=== PATIENT | female | born 1980 | race Caucasian/White ===

== ENCOUNTER 2023-03-30 12:46 | Outpatient (OUT) | payer OTHER, SELFPAY ==
[2023-03-30 13:49] LABS: Free T3 2.42 pg/mL (2.18-3.98); Thyroid Stimulating Hormone 6.265 uIU/mL (0.358-3.740)
== END 2023-03-30 12:47 ==
PROVIDERS: Visit Provider Internal Medicine
DX: E06.3 Autoimmune thyroiditis (principal); E04.9 Nontoxic goiter, unspecified; E55.9 Vitamin D deficiency, unspecified
CPT/HCPCS: 36415; 82306; 84436; 84443; 84481

== ENCOUNTER 2023-09-25 15:15 | Outpatient (OUT) | payer OTHER, SELFPAY ==
[2023-09-25 16:38] LABS: Thyroid Stimulating Hormone 4.203 uIU/mL (0.358-3.740)
[2023-09-25 16:52] LABS: Free T4 0.78 ng/dL (0.76-1.46)
== END 2023-09-25 15:16 | disposition home or self-care (01) ==
LOC: LAB 15:17
PROVIDERS: Visit Provider Internal Medicine
DX: E06.3 Autoimmune thyroiditis (principal); E04.9 Nontoxic goiter, unspecified; E55.9 Vitamin D deficiency, unspecified
CPT/HCPCS: 36415; 82306; 84439; 84443; 84481

== ENCOUNTER 2024-05-20 10:43 | Outpatient (OUT) | payer OTHER, SELFPAY ==
--- NOTE | 2024-05-20 10:47 | MM_ITS ---
Patient Name: GIULIA ARRIOLA MR#: [id number] : 1980 Exam Date: 05/20/2024 Ordering Doctor: DR Trav Mccauley . RADIOLOGY REPORT PROCEDURE: MM TOMOSYNTHESIS SCREENING BI COMPARISON: MG MAMM SCREEN 3D LEIF CAD, 06/23/2022. MG MAMM SCREEN 3D LEIF CAD, 06/24/2021. INDICATIONS: Screening Calculator Name NCI Breast Cancer Risk Assessment Tool 5 Year Breast Cancer Risk 0.90% Lifetime Breast Cancer Risk 12.10% Personal Breast Cancer No Personal Ovarian Cancer No Treatments None Family Cancers None LOCATION: [facility] BREAST COMPOSITION: The breasts are extremely dense, which lowers the sensitivity of mammography. FINDINGS: DIAGNOSTIC CATEGORY 1--NEGATIVE. RIGHT BREAST: No significant suspicious finding. No significant change has occurred. LEFT BREAST: No significant suspicious finding. No significant change has occurred. RECOMMENDATIONS: ROUTINE MAMMOGRAM AND CLINICAL EVALUATION IN 12 MONTHS. PLEASE NOTE: A NORMAL MAMMOGRAM DOES NOT EXCLUDE THE POSSIBILITY OF BREAST CANCER. A CLINICALLY SUSPICIOUS PALPABLE LUMP SHOULD BE BIOPSIED. Dictated by: Elbert Yang M.D. on 05/20/2024 at 16:21 Approved by: Elbert Yang M.D. on 05/20/2024 at 16:23
--- OUTSIDE RECORDS SUMMARY | 2024-05-20 11:03 | XMS_ITS | CCD ---
Author Organization [facility] Care Team Providers Care Verification Specialist Name Role Phone Gase Yeison ESTRADA Primary Care Provider Yasmin Clark APRN, CNP Primary Care Provide r MINE, DR TEE Attending Unavailable KARASIK, DR TEE Consulting Unavailable MISC, DR FLANAGAN Primary Care Unavailable KARASIK, DR TEE Admitting Unavailable KARASIK, DR TEE Admitting Unavailable KARASIK, DR TEE Attending Unavailable KARASIK, DR TEE Consulting Unavailable MISC, DR FLANAGAN Primary Care Unavailable CHANTILLY, DR KANIKA Hodge Consulting Unavailable Yasmin Clark APRN, CNP Primary Care Provide r NISA Ventura Attending Provider Shanel Ventura Unavailable Shanel Ventura Attending Unavailable Shanel Ventura Admitting Unavailable Yasmin Clark APRN, CNP Primary Care Provide r YASMIN THOMPSON Referring Unavailable YASMIN THOMPSON Primary Care Unavailable JASWANT GILES Referring Unavailable YASMIN THOMPSON Primary Care Unavailable YASMIN THOMPSON Referring Unavailable YASMIN THOMPSON Primary Care Unavailable SHELBY VEGA Referring Unavailable YASMIN THOMPSON Primary Care Unavailable Medications Current Medications Medication Drug Class(es) Dates Sig (Normalized) Sig (Original) amitriptyline hydrochloride 25 mg oral tablet (8 sources) Tricyclic Antidepressant Start: 07-26-2023 take 1 tablet by mouth once daily amitriptyline (ELAVIL) 25 MG tablet Indications: Insomnia, unspecified type TAKE 1 TABLET BY MOUTH NIGHTLY 90 tablet 3 07/26/2023 Active Start: 12-22-2022 take 1 tablet by [facility] once daily amitriptyline (ELAVIL) 25 MG tablet Indications: Insomnia, unspecified type TAKE 1 TABLET BY MOUTH NIGHTLY 90 tablet 3 10/13/2022 Active Start: 04-20-2022 take 1 tablet by [facility] once daily amitriptyline (ELAVIL) 25 MG tablet Indications: Insomnia, unspecified type TAKE 1 TABLET BY MOUTH NIGHTLY 90 tablet 1 04/20/2022 Active Amitriptyline HC l Active Ascorbic Acid (1 source) Vitamin C Ascorbic Acid (MARGOT-C PO) Take by mouth 0 Active cholecalciferol 0.025 mg oral tablet (1 source) Vitamin D take 1 tablet by mouth once daily vitamin D (CHOLECALCIFEROL) 25 MCG (1000 UT) TABS tablet Take 1 tablet by mouth daily 0 Active Elastic Bandages & Supports (WRIST SPLINT/COCK-UP/RIGHT M) MISC (2 sources) Start: 10-26-19 Elastic Bandages & Supports (WRIST SPLINT/COCK-UP/RIGH T M) MISC 1 each by Does not apply route nightly 1 each 0 10/26/2021 Active escitalopram 20 mg oral tablet (2 sources) Serotonin Reuptake Inhibitor Start: 05-04-20 take 1 tablet by mouth once daily escitalopram (LEXAPRO) 20 MG tablet Take 1 tablet by mouth daily 90 tablet 3 05/04/2022 Active fluticasone propionate 0.05 mg/actuat metered dose nasal spray (8 sources) Corticosteroid Start: 12-22-19 fluticasone (FLONASE) 50 MCG/ACT nasal spray USE 2 SPRAYS BY NASAL ROUTE DAILY. 1 each 1 12/22/2023 Active Start: 01-30-2023 fluticasone (F LONASE) 50 MCG/ACT nasal spray SPRAY 2 SPRAYS BY NASAL ROUTE DAILY 1 each 1 01/30/2023 Active Start: 01-06-2023 fluticasone (F LONASE) 50 MCG/ACT nasal spray 2 sprays by Nasal route daily 1 each 1 01/06/2023 Active Start: 10-18-2022 take 2 spray(s) nasa l route once daily fluticasone (FLONASE) 50 MCG/ACT nasal spray SPRAY 2 SPRAYS INTO EACH NOSTRIL EVERY DAY 2 each 1 10/18/2022 Active Start: 04-21-2022 take 2 spray(s) nasa l route once daily fluticasone (FLONASE) 50 MCG/ACT nasal spray SPRAY 2 SPRAYS INTO EACH NOSTRIL EVERY DAY 1 each 3 04/21/2022 Active Start: 03-31-2021 take 2 spray(s) nasa l route once daily fluticasone (FLONASE) 50 MCG/ACT nasal spray 2 sprays by Each Nostril route daily 1 Bottle 2 03/31/2021 Active ibuprofen 600 mg oral tablet (1 source) Nonsteroidal Anti-inflammatory Drug Start: 03-31-2021 take 1 tablet by mouth three times daily as needed for pain ibuprofen (ADVIL;MOTRIN) 600 MG tablet Take 1 tablet by mouth 3 times daily as needed for Pain 60 tablet 1 03/31/2021 Active levothyroxine sodium 0.075 mg oral tablet (4 sources) l-Thyroxine Start: 10-03-2023 take 1 tablet by mouth once daily levothyroxine (SYNTHROID) 75 MCG tablet Take 1 tablet by mouth Daily 0 10/03/2023 Active Start: 01-03-2023 [facility] daily levothyroxine (SYNTHROID) 50 MCG tablet TAKE 1 TABLET BY MOUTH EVERY DAY 30 tablet 5 01/03/2023 Active Levothyroxine So dium Active Multiple Vitamin (MV-ONE PO) (7 sources) Multiple Vitamin (MV-ONE PO) Take by mouth 0 Active Vit-Fe Fumarate-FA ( FORMULA PO) (2 sources) Vit-Fe Fumarate-FA ( FORMULA PO) Take by mouth 0 Active Probiotic (1 source) Probiotic Active Probiotic Product (PROBIOTIC PO) (1 source) Probiotic Produc t (PROBIOTIC PO) Take by mouth 0 Active 24 hr venlafaxine 75 mg extended release oral capsule (6 sources) Serotonin and Norepinephrine Reuptake Inhibitor Start: 12-27-19 take 1 capsule by mouth once daily venlafaxine (EFFEXOR XR) 75 MG extended release capsule TAKE 1 CAPSULE BY MOUTH EVERY DAY 90 capsule 3 12/27/2023 Active Start: 01-20-2023 take 1 capsule by mo [facility] once daily venlafaxine (EFFEXOR XR) 75 MG extended release capsule Take 1 capsule by mouth daily 30 capsule 5 01/20/2023 Active Start: 12-09-2022 take 1 capsule by mo [facility] once daily venlafaxine (EFFEXOR XR) 75 MG extended release capsule Take 1 capsule by mouth daily 30 capsule 5 12/09/2022 Active Venlafaxine HCl Active Problems Active Problems Problem Classification Problem Date Documented Da te Episodic/Chronic Anxiety disorders (7 sources) Anxiety; Translations: [Anxiety disorder, unspecified] Onset: 06-01-2021 06-01-2021 Chronic Diabetes mellitus without complication (1 source) Increased glucose level; Translations: [Other abnormal glucose] Episodic Headache; including migraine (2 sources) Refractory migraine; Translations: [Migraine, unspecified, intractable, without status migrainosus] Onset: 01-24-2023 01-24-2023 Chronic Headache; including migraine (9 sources) Generalized headache; Translations: [Generalized headaches] 03-27-2017 Episodic Immunizations and screening for infectious disease (1 source) Encounter for screening for human papillomavirus (HPV); Translations: [ENC SCREENING HUMAN PAPILLOMAVIRUS] Onset: 06-01-2022 Episodic Miscellaneous mental health disorders (9 sources) Bruxism (teeth grinding); Translations: [Other somatoform disorders] Onset: 03-19-2019 03-19-2019 Chronic Mood disorders (7 sources) Recurrent major depressive episodes, moderate ; Translations: [Major depressive disorder, recurrent, moderate] Onset: 06-01-2021 06-01-2021 Chronic Nonspecific chest pain (1 source) Chest pain; Translations: [Chest pain, unspecified] Episodic Other acquired deformities (1 source) Mallet finger of left finger(s) Episodic Other connective tissue disease (1 source) Pain in left finger(s) Episodic Other gastrointestinal disorders (2 sources) Abdominal bloating; Translations: [Abdominal distension (gaseous)] Episodic Other gastrointestinal disorders (2 sources) Loose stool; Translations: [Other fecal abnormalities] Episodic Other gastrointestinal disorders (1 source) Altered bowel function; Translations: [Change in bowel habit] 02-10-2024 Episodic Other gastrointestinal disorders (1 source) Flatulence, eructation and gas pain; Translations: [Flatulence] 02-10-2024 Episodic Other gastrointestinal disorders (1 source) Change in bowel habit; Translations: [Change in bowel habit] Onset: 02-10-2024 Episodic Other gastrointestinal disorders (1 source) Flatulence; Translations: [Flatulence] Onset: 02-10-2024 Episodic Other gastrointestinal disorders (1 source) Gas pain; Translations: [Gas pain] Onset: 02-10-2024 Episodic Other gastrointestinal disorders (1 source) Eructation; Translations: [Eructation] Onset: 02-10-2024 Episodic Other nervous system disorders (1 source) Paresthesia of hand ; Translations: [Anesthesia of skin] Episodic Other screening for suspected conditions (not mental disorders or infectious disease) (10 sources) Patient encounter status; Translations: [Encounter for screening for lipoid disorders] Onset: 05-31-2022 Episodic Other upper respiratory infections (9 sources) Chronic sinusitis; Translations: [Chronic sinusitis, unspecified] Onset: 03-27-2017 03-27-2017 Chronic Thyroid disorders (10 sources) Hypothyroidism; Translations: [Hypothyroidism, unspecified] Onset: 01-24-2023 Chronic Unclassified (1 source) Pain in left finger(s); Translations: [Pain in left finger(s)] Onset: 01-04-2023 Past or Other Problems Problem Classification Problem Date Documented Da te Episodic/Chronic Lymphadenitis (9 sources) Cervical lymphadenopathy; Translations: [Localized enlarged lymph nodes] Onset: 03-27-2017 03-27-2017 Episodic Results Test Name Value Interpretation Reference Range Facility T3, [facility] 03-29-2024 Free T3 [Mass/Vol] 2.50 pg/mL Normal 2.00-4.40 [facility] Comment on above: Performed By: #### Wong CAG, STLPCR #### [facility] [employer] [address] [place] [address] [id number] Project Account Manager: Amador Awan MD [facility] [address] [place] [address] [place] [address] Project Account Manager: Kanika Lozada MD Thyroxine, [facility] 03-29-2024 Thyroxine, Free 1.1 ng/dL Normal 0.92-1.68 [facility] Comment on above: Performed By: #### Wong CAG, STLPCR #### [address] [id number] Project Account Manager: Amador Awan MD [facility] [address] [place] [address] [place] [address] Project Account Manager: Kanika Lozada MD CBCon 03-25-2024 Erythrocyte distribution width (RBC) [Ratio] 11.9 % Normal 11.8-14.4 [facility] Comment on above: Performed By: #### C P, CBC #### [facility] [address] [place] [address] [place] [address] Project Account Manager: Kanika Lozada MD #### GLYHGB #### [address] [place], [place] [phone] Project Account Manager: Amador Awan MD Hematocrit (Bld) [Volume fraction] 37.5 % Normal 36.3-47.1 [facility] Comment on above: Performed By: #### C P, CBC #### [address] [place] [phone] Project Account Manager: Kanika Lozada MD #### GLYHGB #### [address] [phone] Project Account Manager: Amador Awan MD Hemoglobin (Bld) [Mass/Vol] 12.6 g/dL Normal 11.9-15.1 [facility] Comment on above: Performed By: #### C P, CBC #### [facility] [address] [place] [address] [place] [phone] Project Account Manager: Kanika Lozada MD #### GLYHGB #### [address] [place], [place] [phone] Project Account Manager: Amador Awan MD MCH (RBC) [Entitic mass] 30.6 pg Normal 25.2-33.5 [facility] Comment on above: Performed By: #### C P, CBC #### [facility] [address] [place] [address] [place] [address] Project Account Manager: Kanika Lozada MD #### GLYHGB #### [address] [phone] Project Account Manager: Amador Awan MD MCHC (RBC) [Mass/Vol] 33.6 g/dL Normal 28.4-34.8 [facility] Comment on above: Performed By: #### C P, CBC #### [facility] [address] [place] [address] [place] [phone] Project Account Manager: Kanika Lozada MD #### GLYHGB #### [address] [id number] Project Account Manager: Amador Awan MD MCV (RBC) [Entitic vol] 91.0 fL Normal 82.6-102.9 [facility] Comment on above: Performed By: #### C P, CBC #### [address] [place] [phone] Project Account Manager: Kanika Lozada MD #### GLYHGB #### [place] [address] Project Account Manager: Amador Awan MD NRBC Automated 0.0 per 100 WBC Normal 0.0 [facility] Comment on above: Performed By: #### C P, CBC #### [address] [place] [phone] Project Account Manager: Kanika Lozada MD #### GLYHGB #### [place] [address] Project Account Manager: Amador Awan MD Platelet mean volume (Bld) [Entitic vol] 8.9 fL Normal 8.1-13.5 [facility] Comment on above: Performed By: #### C P, CBC #### [address] [place] [phone] Project Account Manager: Kanika Lozada MD #### GLYHGB #### [address] [place] [address] Project Account Manager: Amador Awan MD Platelets (Bld) [#/Vol] 291 10*3/uL Normal 138-453 [facility] Comment on above: Performed By: #### C P, CBC #### [facility] [address] [place], [place] [phone] Project Account Manager: Kanika Lozada MD #### GLYHGB #### [address] [place] [address] Project Account Manager: Amador Awan MD RBC (Bld) [#/Vol] 4.12 10*6/uL Normal 3.95-5.11 [facility] Comment on above: Performed By: #### C P, CBC #### [facility] [address] [place] [address] [place], [place] [phone] Project Account Manager: Kanika Lozada MD #### GLYHGB #### [address] [address] Project Account Manager: Amador Awan MD WBC (Bld) [#/Vol] 5.3 10*3/uL Normal 3.5-11.3 [facility] Comment on above: Performed By: #### C P, CBC #### [facility] [address] [place] [address] [place]. [place], [place] [phone] Project Account Manager: Kanika Lozada MD #### GLYHGB #### [address] [place] [address] Project Account Manager: Amador Awan MD Comp Metabolic Profon 2023 Albumin [Mass/Vol] 4.4 g/dL Normal 3.5-5.2 [facility] Comment on above: Performed By: #### C P, CBC #### [facility] [address] [place], [place] [phone] Project Account Manager: Kanika Lozada MD #### GLYHGB #### [address] [place] [address] Project Account Manager: Amador Awan MD Albumin/Glob Ratio 1.6 Normal 1.0-2.5 [facility] Comment on above: Performed By: #### C P, CBC #### [facility] [address] [place] [address] [address]. [place], [place] [phone] Project Account Manager: Kanika Lozada MD #### GLYHGB #### [address] [address] Project Account Manager: Amador Awan MD Alkaline Phos 91 U/L Normal 35-104 [facility] Comment on above: Performed By: #### C P, CBC #### [address] [place], [place] [phone] Project Account Manager: Kanika Lozada MD #### GLYHGB #### [address] [address] Project Account Manager: Amador Awan MD ALT [Catalytic activity/Vol] 13 U/L Normal 5-33 [facility] Comment on above: Performed By: #### C P, CBC #### [address] [place], [place] [phone] Project Account Manager: Kanika Lozada MD #### GLYHGB #### [address] [address] Project Account Manager: Amador Awan MD Anion gap [Moles/Vol] 8 mmol/L Low 9-17 [facility] Comment on above: Performed By: #### C P, CBC #### [address] [place], [place] [phone] Project Account Manager: Kanika Lozada MD #### GLYHGB #### [address] [address] Project Account Manager: Amador Awan MD AST [Catalytic activity/Vol] 18 U/L Normal <32 [facility] Comment on above: Performed By: #### C P, CBC #### [facility] [address] [place], [place] [phone] Project Account Manager: Kanika Lozada MD #### GLYHGB #### [address] [address] Project Account Manager: Amador Awan MD Bilirubin [Mass/Vol] 0.2 mg/dL Low 0.3-1.2 [facility] Comment on above: Performed By: #### C P, CBC #### [facility] [address] [place], [place] [phone] Project Account Manager: Kanika oLzada MD #### GLYHGB #### [address] [address] Project Account Manager: Amador Awan MD BUN/CRE Ratio 21 High 9-20 [facility] Comment on above: Performed By: #### C P, CBC #### [facility] [address] [place], [place] [phone] Project Account Manager: Kanika Lozada MD #### GLYHGB #### [address] [address] Project Account Manager: Amador Awan MD Calcium [Mass/Vol] 9.1 mg/dL Normal 8.6-10.4 [facility] Comment on above: Performed By: #### C P, CBC #### [facility] [address] [place], [place] [phone] Project Account Manager: Kanika Lozada MD #### GLYHGB #### [address] [address] Project Account Manager: Amador Awan MD Chloride [Moles/Vol] 104 mmol/L Normal 98-107 [facility] Comment on above: Performed By: #### C P, CBC #### [facility] [address] [place] [address] Project Account Manager: Kanika Lozada MD #### GLYHGB #### [facility] [address] [place], [place] [phone] Project Account Manager: Amador Awan MD CO2 [Moles/Vol] 26 mmol/L Normal 20-31 [facility] Comment on above: Performed By: #### C P, CBC #### [facility] [address] [place] [address] Project Account Manager: Kanika Lozada MD #### GLYHGB #### [address] [place], [place] [phone] Project Account Manager: Amador Awan MD Creatinine [Mass/Vol] 0.8 mg/dL Normal 0.5-0.9 [facility] Comment on above: Performed By: #### C P, CBC #### [address] [place] [address] Project Account Manager: Kanika Lozdaa MD #### GLYHGB #### [address] [place], [place] [phone] Project Account Manager: Amador Awan MD GFR/1.73 sq M.predicted among non-blacks MDRD (S/P/Bld) [Vol rate/Area] mL/min/{1.73_m2} Normal >60 [facility] Comment on above: Result Comment: These results are not intended for use in patients <18 years of age. eGFR results are calculated without a race factor using the 2020 CKD-EPI equation. Careful clinical correlation is recommended, particularly when comparing to results calculated using previous equations. The CKD-EPI equation is less accurate in patients with extremes of muscle mass, extra-renal metabolism of creatine, excessive creatine ingestion, or following therapy that affects renal tubular secretion. Performed By: #### C P, CBC #### [facility] [address] [place], [place] [phone] Project Account Manager: Kanika Lozada MD #### GLYHGB #### [address] [place], [place] [phone] Project Account Manager: Amador Awan MD Glucose [Mass/Vol] 84 mg/dL Normal 70-99 [facility] Comment on above: Performed By: #### C P, CBC #### [address] [place], [place] [phone] Project Account Manager: Kanika Lozada MD #### GLYHGB #### [address] [phone] Project Account Manager: Amador Awan MD Potassium [Moles/Vol] 4.5 mmol/L Normal 3.7-5.3 [facility] Comment on above: Performed By: #### C P, CBC #### [address] [place] [phone] Project Account Manager: Kanika Lozada MD #### GLYHGB #### [address] [address] Project Account Manager: Amador Awan MD Protein [Mass/Vol] 7.1 g/dL Normal 6.4-8.3 [facility] Comment on above: Performed By: #### C P, CBC #### [address] [place], [place] [phone] Project Account Manager: Kanika Lozada MD #### GLYHGB #### [address] [address] Project Account Manager: Amador Awan MD Sodium [Moles/Vol] 138 mmol/L Normal 135-144 [facility] Comment on above: Performed By: #### C P, CBC #### [address] [place], [place] [phone] Project Account Manager: Kanika Lozada MD #### GLYHGB #### [address] [place] [address] Project Account Manager: Amador Awan MD Urea nitrogen [Mass/Vol] 17 mg/dL Normal 6-20 [facility] Comment on above: Performed By: #### C P, CBC #### [facility] [address] [place] [address] [address]. [place], [place] [phone] Project Account Manager: Kanika Lozada MD #### GLYHGB #### [address] [address] Project Account Manager: Amador Awan MD Hemoglobin A1Con 03-25-2024 Glucose [Mass/Vol] 103 mg/dL Normal [facility] Comment on above: Result Comment: The ADA and AACC recommend providing the estimated average glucose result to permit better patient understanding of their HBA1c result. Performed By: #### C P, CBC #### [facility] [address] [place] [address] [address]. [place], [place] [phone] Project Account Manager: Kanika Lozada MD #### GLYHGB #### [address] [address] Project Account Manager: Amador Awan MD HbA1c (Bld) [Mass fraction] 5.2 % Normal 4.0-6.0 [facility] Comment on above: Performed By: #### C P, CBC #### [facility] [address] [place] [address] [address]. [place], [place] [phone] Project Account Manager: Kanika Lozada MD #### GLYHGB #### [address] [address] Project Account Manager: Amador Awan MD Lipid Profileon 03-25-2024 Cholesterol [Mass/Vol] 205 mg/dL High 0-199 [facility] Comment on above: Result Comment: Cholesterol Guidelines: <200 Desirable 200-240 Borderline >240 Undesirable Performed By: #### L IPR #### [address] [address] Project Account Manager: Amdaor Awan MD Cholesterol in HDL [Mass/Vol] 51 mg/dL Normal >40 [facility] Comment on above: Result Comment: HDL Guidelines: <40 Undesirable 40-59 Borderline >59 Desirable Performed By: #### L IPR #### [address] [address] Project Account Manager: Amador Awan MD Cholesterol in LDL [Mass/Vol] 138 mg/dL High 0-100 [facility] Comment on above: Result Comment: LDL Guidelines: <100 Desirable 100-129 Near to/above Desirable 130-159 Borderline >159 Undesirable Direct (measured) LDL and calculated LDL are not interchangeable tests. Performed By: #### L IPR #### [address] [address] Project Account Manager: Amador Awan MD Cholesterol in VLDL [Mass/Vol] 16 mg/dL Normal [facility] Comment on above: Performed By: #### L IPR #### [address] [address] Project Account Manager: Amador Awan MD Cholesterol.total/Chol esterol in HDL [Mass ratio] 4.0 {ratio} Normal [facility] Comment on above: Performed By: #### L IPR #### [address] [address] Project Account Manager: Amador Awan MD Triglyceride [Mass/Vol] 80 mg/dL Normal <150 [facility] Comment on above: Result Comment: Triglyceride Guidelines: <150 Desirable 150-199 Borderline 200-499 High >499 Very high Based on AHA Guidelines for fasting triglyceride, July 2012. Performed By: #### L IPR #### [address] [address] Project Account Manager: Amador Awan MD TSH w/reflex to FT4on 2023 Thyroid Stim. Horm. 3.95 uIU/mL Normal 0.30-5.00 [facility] Comment on above: Performed By: #### G ELIZABETH STLPCR #### [address] [place] [address] Project Account Manager: Amador Awan MD [facility] [address] [place] [address] [place] [address] Project Account Manager: Kanika Lozada MD Fecal Panc Elastaseon 2023 Pancreatic Elastase >800 Normal >=100 [facility] Comment on above: Result Comment: (NOT E) REFERENCE INTERVAL: Pancreatic Elastase Fecal by Immunoassay Less than 100 ug/g............Severe insufficiency 100 - 199 ug/g................Moderate insufficiency 200 ug/g or greater...........Normal INTERPRETIVE INFORMATION: Pancreatic Elastase Fecal by Immunoassay Reference intervals do not apply for infants less than one month old. Performed By: [employer] [address] [place] [address] Worship Pastor: Hieu Hurley MD, PhD CLIA Number: [id number] Performed By: #### G CAG, STLPCR #### [address] [address] Project Account Manager: Amador Awan MD [facility] [address] [place] [address] [place] [address] Project Account Manager: Kanika Lozada MD Giardia/Cryptosp Agon 2023 Cryptosporidium Ag Negative Normal NEG [facility] Comment on above: Result Comment: Cryp tosporidium Antigen Assay Performed By: #### G CAG, STLPCR #### [address] [address] Project Account Manager: Amador Awan MD [facility] [address] [place] [address] [place] [address] Project Account Manager: Kanika Lozada MD O+P,Giardia Ag Negative Normal NEG [facility] Comment on above: Result Comment: Giar taylor Antigen Assay Performed By: #### G ELIZABETH, STLPCR #### [address] [address] Project Account Manager: Amador Awan MD [facility] [address] [place] [address] Project Account Manager: Kanika Lozada MD H. pylori Antigenon 02-11-20 24 H. pylori Antigen Specimen Description .FECES Direct Exam NEGATIVE Report Status FINAL 02/11/2024 Normal [facility] Comment on above: Performed By: #### F HPY #### [address] [address] Project Account Manager: Amador Awan MD [facility] [address] [place] [address] Project Account Manager: Kanika Lozada MD Stool PCR [place] 02-11-20 24 Campylobacter sp PCR NEGATIVE: No Campylobacter spp. (jejuni or coli) DNA Detected Normal [facility] Comment on above: Performed By: #### G CAG, STLPCR #### [address] [address] Project Account Manager: Amador Awan MD [facility] [address] [place] [address] Project Account Manager: Kanika Lozada MD E coli enterotox PCR NEGATIVE: No Enterotoxigenic E. coli (ETEC) Heat-labile and heat-stable (LT/ST) Normal [facility] Comment on above: Result Comment: DNA Detected Performed By: #### G CAG, STLPCR #### [address] [address] Project Account Manager: Amador Awan MD [facility] [address] [place] [address] Project Account Manager: Kanika Lozada MD Plesiomonas sp PCR Negative [facility] Comment on above: Performed By: #### G CAG, STLPCR #### [address] [address] Project Account Manager: mAador Awan MD [facility] [address] [place] [address] Project Account Manager: Kanika Lozada MD Salmonella sp PCR [facility] Comment on above: Performed By: #### G CAG, STLPCR #### [facility] [address] [place] [address] Project Account Manager: Amador Awan MD [facility] [address] [place] [address] Project Account Manager: Kanika Lozada MD Shigatoxin gene PCR Negative Normal [facility] Comment on above: Performed By: #### G CAG, STLPCR #### [facility] [address] [place] [address] Project Account Manager: Amador Awan MD [facility] [address] [place] [address] [place] [address] Project Account Manager: Kanika Lozada MD Shigella sp PCR Negative Normal [facility] Comment on above: Performed By: #### G CAG, STLPCR #### [facility] [address] [place] [address] Project Account Manager: Amador Awan MD [facility] [address] [place] [address] [place] [address] Project Account Manager: Kanika Lozada MD Vibrio sp PCR NEGATIVE: No Vibrio (V. vulnificus, V, parahaemolyticus and V. cholerae) DNA [facility] Comment on above: Result Comment: Dete cted Performed By: #### G CAG, STLPCR #### [facility] [address] [place] [address] Project Account Manager: Amador Awan MD [facility] [address] [place] [address] [place] [address] Project Account Manager: Kanika Lozada MD Yersinia gene PCR Negative [place] [facility] Comment on above: Performed By: #### G CAG, STLPCR #### [facility] [address] [place] [address] Project Account Manager: Amador Awan MD [facility] [address] [place], [place] [phone] Project Account Manager: Kanika Lozada MD Giardia/Cryptosp Agon 2023 Source .FECES Normal [facility] Comment on above: Performed By: #### G CAG, STLPCR #### [facility] [address] [place] [address] Project Account Manager: Amador Awan MD [facility] [address] [place] [phone] Project Account Manager: Kanika Lozada MD Specimen Rejectionon 024 Reason for rejection Unable to perform testing: Formed stool is not consistent with suspected Normal [facility] Comment on above: Result Comment: diag nosis. Performed By: #### R EJEC #### [facility] [address] [place] [address] [address] [place], [place] [phone] Project Account Manager: Kanika Lozada MD Source of sample STOOL Normal [facility] Comment on above: Performed By: #### R EJEC #### [facility] [address] [place] [address] [address] [place], [place] [phone] Project Account Manager: Kanika Lozada MD Test ordered CDIFQ Normal [facility] Comment on above: Performed By: #### R EJEC #### [facility] [address] [place] [address] [address] [place], [place] [phone] Project Account Manager: Kanika Lozada MD Stool PCR [place] 02-10-20 24 Specimen Description .FECES Normal [facility] Comment on above: Performed By: #### G CAG, STLPCR #### [facility] [address] [place] [address] Project Account Manager: Amador Awan MD [facility] [address] [place] [phone] Project Account Manager: Kanika Lozada MD TSH w/reflex to FT4on 2022 Thyroid Stim. Horm. 6.56 uIU/mL High 0.30-5.00 [facility] Comment on above: Performed By: #### F T4 #### [facility] [address] [place], [place] [phone] Project Account Manager: Amador Awan MD #### TSHX #### [facility] [address] [place] [address] Project Account Manager: Kanika Lozada MD Thyroxine, Freeon 05-24-2023 Thyroxine, Free 1.0 ng/dL Normal 0.9-1.7 [facility] Comment on above: Performed By: #### F T4 #### [address] [place], [place] [id number] Project Account Manager: Amador Awan MD #### TSHX #### [facility] [address] [place] [address] Project Account Manager: Kanika Lozada MD THYROIDon 02-09-2023 Heterogeneous, hypervascular thyroid parenchyma with mild enlargement of the right thyroid lobe, findings that could be seen with thyroiditis or Graves disease. [facility] EXAMINATION: THYROID ULTRASOUND 02/08/2023 4:58 pm COMPARISON: None HISTORY: ORDERING SYSTEM PROVIDED HISTORY: Arcelia's disease TECHNOLOGIST PROVIDED HISTORY: This procedure can be scheduled via [employer]. Access your Floob[employer] account by visiting [employer]altap. FINDINGS: Right thyroid lobe: 6.0 cm x 3.0 cm x 2.0 cm Left thyroid lobe: 4.4 cm x 1.5 cm x 1.8 cm Isthmus: 0.2 cm THYROID GLAND: Mild enlargement of the right lobe with otherwise normal size. Moderately heterogeneous echogenicity and echotexture. Markedly increased vascularity. NODULES: None visualized. CERVICAL LYMPHADENOPATHY: None visualized. [facility] Saran Baez MD - 02/09/2023 EXAMINATION: THYROID ULTRASOUND 02/08/2023 4:58 pm COMPARISON: None HISTORY: ORDERING SYSTEM PROVIDED HISTORY: Arcelia's disease TECHNOLOGIST PROVIDED HISTORY: This procedure can be scheduled via Floob[employer]. Access your [employer] account by visiting vocaltap. FINDINGS: Right thyroid lobe: 6.0 cm x 3.0 cm x 2.0 cm Left thyroid lobe: 4.4 cm x 1.5 cm x 1.8 cm Isthmus: 0.2 cm THYROID GLAND: Mild enlargement of the right lobe with otherwise normal size. Moderately heterogeneous echogenicity and echotexture. Markedly increased vascularity. NODULES: None visualized. CERVICAL LYMPHADENOPATHY: None visualized. IMPRESSION: Heterogeneous, hypervascular thyroid parenchyma with mild enlargement of the right thyroid lobe, findings that could be seen with thyroiditis or Graves disease. [employer] Phone: US THYROIDOrdered By: Samra Baez on 02-09-2023 [employer] Phone: US THYROIDon 02-08-2023 Radiology Study observation (narrative) [employer] Phone: T4, Freeon 01-18-2023 Free T4 [Mass/Vol] 0.98 ng/dL 0.93 - 1. 70 ng/dL [employer] TSHon 01-17-2023 TSH Qn 4.70 m[IU]/L [employer] XR finger LT 3rd digiton XR finger LT 3rd digit [facility] [place] [address] XRay Report Signed Patient: Giulia Blackwell MR#: [id number] : 1980 Acct:[id number] Age/Sex: 42 / F ADM Date: 01/04/23 Loc: XDUCLY Room: Type: [facility] Attending Dr: Shanel PAULA Copies to: NISA Callahan Ordering Provider: NISA Callahan Date of Service: 01/04/23 XR/XR finger LT 3rd digit: M79.645 XR finger LT 3rd digit 01/04/2023 5:35 PM SIGNS AND SYMPTOMS: Injury to left third digit with flexion deformity PROTOCOL: Frontal, lateral, and oblique radiographs of the left third digit COMPARISON: None FINDINGS: There is no evidence of fracture. No dislocation or subluxation. There is a focus flexion deformity suspicious for tendon injury at the distal interphalangeal joint of the third digit. No accompanying soft tissue swelling. XR/XR finger LT 3rd digit IMPRESSION: There is no evidence of fracture. There is a focus flexion deformity suspicious for tendon injury at the distal interphalangeal joint of the third digit. Impression dictated by: Primo Gregory M.D.01/04/2023 5:51 PM Dictation Location: [facility]- Transcribed By: [facility] 01/04/231750 Dictated By: Primo Gregory II, MD 01/04/231749 Signed By: 01/04/231750 [facility] XR finger LT 3rd digit [facility] [employer] Other XR finger LT 3rd digit [facility] [employer] Other XR finger LT 3rd digit [address] [facility] [employer] Other XR finger LT 3rd digit [place] [id number] [employer] Other XR finger LT 3rd digit XRay Report N [facility] [employer] Other XR finger LT 3rd digit Signed No rt [employer] Other XR finger LT 3rd digit Patient: Giulia Blackwell MR#: [id number] [place] [employer] Other XR finger LT 3rd digit : 1980 Acct:[id number] [employer] Other XR finger LT 3rd digit Age/Sex: 42 / F A DM Date: 01/04/23 [employer] Other XR finger LT 3rd digit Loc: XDUCLY Room: Type: [facility] [employer] Other XR finger LT 3rd digit Attending Dr: Ana María PAULA [employer] Other XR finger LT 3rd digit Copies to: NISA Callahan [employer] Other XR finger LT 3rd digit Ordering Provider : NISA Callahan [employer] Other XR finger LT 3rd digit Date of Service: 01/04/23 [employer] Other XR finger LT 3rd digit XR/XR finger LT 3rd digit: M79.645 [employer] Other XR finger LT 3rd digit XR finger LT 3rd digit 01/04/2023 5:35 PM [employer] Other XR finger LT 3rd digit SIGNS AND SYMPTOM S: Injury to left third digit with flexion deformity [employer] Other XR finger LT 3rd digit PROTOCOL: Frontal , lateral, and oblique radiographs of the left third digit [employer] Other XR finger LT 3rd digit COMPARISON: None [employer] Other XR finger LT 3rd digit FINDINGS: No rt [employer] Other XR finger LT 3rd digit There is no evide nce of fracture. No dislocation or subluxation. There is a focus flexion deformity [employer] Other XR finger LT 3rd digit suspicious for tendon injury at the distal interphalangeal joint of the third digit. No accompanying [employer] Other XR finger LT 3rd digit soft tissue swelling. [employer] Other XR finger LT 3rd digit 8 XR/XR finger LT 3rd digit [employer] Other XR finger LT 3rd digit IMPRESSION: [employer] Other XR finger LT 3rd digit There is no evide nce of fracture. [employer] Other XR finger LT 3rd digit There is a focus flexion deformity suspicious for tendon injury at the distal interphalangeal joint [employer] Other XR finger LT 3rd digit of the third digit. [employer] Other XR finger LT 3rd digit Impression dictat ed by: Primo Gregory M.D.01/04/2023 5:51 PM [employer] Other XR finger LT 3rd digit Dictation Locatio n: RADIO-PC-13 [employer] Other XR finger LT 3rd digit Transcribed By: Mervin KHAN 01/04/23 [facility] [employer] Other XR finger LT 3rd digit Dictated By: Primo Gregory II, MD 01/04/23 [facility] [employer] Other XR finger LT 3rd digit Signed By: No rt [employer] Other XR finger LT 3rd digit 01/04/23 [facility] [employer] Other Blood Occult Stool #1on 11-23 Date, Stool #1 [id number] [facility] Hemoglobin.gastrointes tinal spec 1 Ql (Stl) Negative NEGATIVE [facility] Time, Stool #1 [facility] C-Reactive Proteinon 023 CRP High sensitivity method [Mass/Vol] 3.6 mg/L 0.0 - 5.0 mg/L [facility] CBC with Auto Differentialon 12-09-2022 Absolute Eos # 0.11 [facility] Absolute Immature Granulocyte [facility] Absolute Lymph # 2.15 [facility] Absolute Rice # 0.47 [facility] Basophils (Bld) [#/Vol] 0.05 10*3/uL [facility] Basophils/100 WBC (Bld) 1 % 0 - 2 % [facility] Eosinophils/100 WBC (Bld) 2 % 1 - 4 % [facility] Hematocrit (Bld) [Volume fraction] 35.4 % Low 36.3 - 47.1 % [facility] Hemoglobin (Bld) [Mass/Vol] 12.0 g/dL 11.9 - 15.1 g/dL [facility] Immature granulocytes/100 WBC (Bld) 0 % 0 [facility] Interpretation and review of laboratory results Abnormal [facility] Lymphocytes/100 WBC (Bld) 33 % 24 - 43 % [facility] MCH (RBC) [Entitic mass] 31.7 pg 25.2 - 33.5 pg [facility] MCHC (RBC) [Mass/Vol] 33.9 g/dL 28.4 - 34.8 g/dL [facility] MCV (RBC) [Entitic vol] 93.7 fL 82.6 - 102.9 fL [facility] Monocytes/100 WBC (Bld) 7 % 3 - 12 % [facility] NRBC Automated 0.0 0.0 per 100 WBC [facility] Platelet distribution width (Bld) [Ratio] 12.0 % 11.8 - 14.4 % [facility] Platelet mean volume (Bld) [Entitic vol] 8.6 fL 8.1 - 13.5 fL [facility] Platelets (Bld) [#/Vol] 321 10*3/uL [facility] RBC (Bld) [#/Vol] 3.78 10*6/uL Low 3.95 - 5.1 1 m/uL [facility] Segmented neutrophils/100 WBC (Bld) 57 % 36 - 65 % [facility] Segs Absolute 3.68 [facility] WBC (Bld) [#/Vol] 6.5 10*3/uL [facility] Comprehensive Metabolic Pane cesar 12-09-2022 Albumin [Mass/Vol] 4.5 g/dL 3.5 - 5.2 g/dL [facility] Albumin/Globulin [Mass ratio] 1.7 {ratio} 1.0 - 2.5 [facility] ALP [Catalytic activity/Vol] 72 U/L 35 - 104 U/L [facility] ALT [Catalytic activity/Vol] 16 U/L 5 - 33 U/L [facility] Anion gap [Moles/Vol] 8 mmol/L Low 9 - 17 mmol/L [facility] AST [Catalytic activity/Vol] 19 U/L NINF - 32 U/L [facility] Bilirubin [Mass/Vol] mg/dL Low 0.3 - 1 .2 mg/dL [facility] Calcium [Mass/Vol] 9.3 mg/dL 8.6 - 10. 4 mg/dL [facility] Chloride [Moles/Vol] 99 mmol/L 98 - 10 7 mmol/L [facility] CO2 [Moles/Vol] 28 mmol/L 20 - 31 mmol/L [facility] Creatinine [Mass/Vol] 0.76 mg/dL 0.50 - 0.90 mg/dL [facility] GFR/1.73 sq M.predicted MDRD (S/P/Bld) [Vol rate/Area] - PINF [facility] Comment on above: These results are not intended for use in patients <18 years of age. eGFR results are calculated without a race factor using the 2020 CKD-EPI equation. Careful clinical correlation is recommended, particularly when comparing to results calculated using previous equations. The CKD-EPI equation is less accurate in patients with extremes of muscle mass, extra-renal metabolism of creatine, excessive creatine ingestion, or following therapy that affects renal tubular secretion. Glucose [Mass/Vol] 84 mg/dL 70 - 99 mg/dL [facility] Interpretation and review of laboratory results Abnormal [facility] Potassium [Moles/Vol] 4.0 mmol/L 3.7 - 5.3 mmol/L [facility] Protein [Mass/Vol] 7.2 g/dL 6.4 - 8.3 g/dL [facility] Sodium [Moles/Vol] 135 mmol/L 135 - 144 mmol/L [facility] Urea nitrogen [Mass/Vol] 15 mg/dL 6 - 20 mg/dL [facility] Urea nitrogen/Creatinine (Bld) [Mass ratio] 20 9 - 20 [facility] Sedimentation Rateon 02-17-2 023 ESR (Bld) [Velocity] 6 mm/h [facility] T3, Freeon 12-09-2022 Free T3 [Mass/Vol] 2.36 pg/mL 2.02 - 4. 43 pg/mL [facility] T4, Freeon 12-09-2022 Free T4 [Mass/Vol] 0.70 ng/dL Low 0.93 - 1. 70 ng/dL [facility] Interpretation and review of laboratory results Abnormal [facility] TSHon 12-09-2022 Interpretation and review of laboratory results Abnormal [facility] TSH Qn 21.12 m[IU]/L High [facility] MG MAMM SCREEN 3D LEIF CADon 06-23-2022 MG MAMM SCREEN 3D LEIF CAD Patient: GIULIA BLACKWELL Exam Date: 06/23/2022 : 1980 Gender:F Ordering : DR RANDAL BLOUNT . Admission #: [id number] Family : Order #: [id number] CLICK HERE TO VIEW EXAM RADIOLOGY REPORT PROCEDURE: MAMMOGRAM SCREENING 3D BILATERAL CAD COMPARISON: MG MAMM SCREEN 3D LEIF CAD, 06/24/2021. INDICATIONS: Screening mammography Calculator Name NCI Breast Cancer Risk Assessment Tool 5 Year Breast Cancer Risk 0.80% Lifetime Breast Cancer Risk 12.40% Personal Breast Cancer No Personal Ovarian Cancer No Treatments None Family Cancers None LOCATION: [facility] BREAST COMPOSITION: Extremely dense, which lowers the sensitivity of mammography. FINDINGS: DIAGNOSTIC CATEGORY 1--NEGATIVE. NO CHANGE FROM COMPARISON ASSESSMENT. Scattered benign-appearing calcifications are present. Scattered benign-appearing lymph nodes are present. RIGHT BREAST: No significant suspicious finding. LEFT BREAST: No significant suspicious finding. RECOMMENDATIONS: ROUTINE MAMMOGRAM AND CLINICAL EVALUATION IN 12 MONTHS. PLEASE NOTE: A NORMAL MAMMOGRAM DOES NOT EXCLUDE THE POSSIBILITY OF BREAST CANCER. A CLINICALLY SUSPICIOUS PALPABLE LUMP SHOULD BE BIOPSIED. Dictated by: Kanika Cochran MD on 06/24/2022 at 08:01 Approved by: Kanika Cochran MD on 06/24/2022 at 08:03 Normal [facility] PAP ACOG PANEL 2: 30 to 65on 06-06-2022 . . Normal [facility] Comment on above: Result Comment: Perf ormed at: WB Performed By: #### [id number] #### [facility] [address] [place] [address] Dr. Pk Cat Age Gdln ACOG Testing 30-65 [facility] Comment on above: Performed By: #### [id number] #### [facility] [address] [place] [address] Dr. Pk Cat DIAGNOSIS: Comment Normal [facility] Comment on above: Result Comment: NEGA TIVE FOR INTRAEPITHELIAL LESION OR MALIGNANCY. Performed at: WB Performed By: #### [id number] #### [facility] [address] [place] [address] Dr. Pk Cat HPV Aptima Negative Normal [facility] Comment on above: Result Comment: This nucleic acid amplification test detects fourteen high-risk HPV types (16,18,31,33,35,39,45,51,52,56,58,59,66,68) without differentiation. Performed at: =G Performed By: #### [id number] #### [facility] [address] [place] [address] Dr. Pk Cat Methodology: Comment [facility] Comment on above: Result Comment: This liquid based ThinPrep(R) pap test was screened with the use of an image guided system. Performed at: WB Performed By: #### [id number] #### [facility] [address] [place] [address] Dr. Pk Cat Note: Comment Normal [facility] Comment on above: Result Comment: The Pap smear is a screening test designed to aid in the detection of premalignant and malignant conditions of the uterine cervix. It is not a diagnostic procedure and should not be used as the sole means of detecting cervical cancer. Both false-positive and false-negative reports do occur. . Performed at: WB Performed By: #### [id number] #### [facility] [address] [place] [address] Dr. Pk Cat Performed by: Comment Normal [facility] Comment on above: Result Comment: Kailey Conde [employer] Operator (ASCP) Performed at: WB Performed By: #### [id number] #### [facility] [address] [address] [address] Pk Cat Specimen adequacy: Comment Normal [facility] Comment on above: Result Comment: Sati sfactory for evaluation. Endocervical and/or squamous metaplastic cells (endocervical component) are present. Performed at: WB Performed By: #### [id number] #### [facility] [address] [address] [address] Pk Cat XR CERVICAL SPINE (2-3 VIEWS )on 05-05-2022 Normal exam [facility] EXAMINATION: XRAY VIEWS OF THE CERVICAL SPINE 05/05/2022 10:04 am COMPARISON: None. HISTORY: ORDERING SYSTEM PROVIDED HISTORY: Numbness and tingling in right hand FINDINGS: Cervical spine alignment is anatomic. No acute osseous abnormality. No significant degenerative change. Prevertebral soft tissues unremarkable. [facility] Gilmer Menendez DO - 05/05/2022 EXAMINATION: XRAY VIEWS OF THE CERVICAL SPINE 05/05/2022 10:04 am COMPARISON: None. HISTORY: ORDERING SYSTEM PROVIDED HISTORY: Numbness and tingling in right hand FINDINGS: Cervical spine alignment is anatomic. No acute osseous abnormality. No significant degenerative change. Prevertebral soft tissues unremarkable. IMPRESSION: Normal exam [facility] Phone: Radiology Study observation (narrative) [employer] Phone: XR CERVICAL SPINE (2-3 VIEWS )Ordered By: Gilmer Menendez on 05-05-2022 [employer] Phone: ALTOrdered By: Yasmin Thompson on 03-31-2021 ALT [Catalytic activity/Vol] 13 U/L 5 - 33 U/L [employer] Phone: ASTOrdered By: Yasmin Thompson on 03-31-2021 AST [Catalytic activity/Vol] 17 U/L <32 [employer] Phone: Basic Metabolic PanelOrdered By: Yasmin Thompson on 03-31-2021 Anion gap [Moles/Vol] 6 mmol/L Low 9 - 17 mmol/L [employer] Phone: Calcium [Mass/Vol] 9.5 mg/dL 8.6 - 10. 4 mg/dL [employer] Phone: Chloride [Moles/Vol] 105 mmol/L 98 - 10 7 mmol/L [employer] Phone: CO2 [Moles/Vol] 27 mmol/L 20 - 31 mmol/L [employer] Phone: Creatinine [Mass/Vol] 0.76 mg/dL 0.50 - 0.90 mg/dL [employer] Phone: GFR >60 >60 mL/min [employer] Phone: GFR Non- >60 >60 mL/min [employer] Phone: Glucose [Mass/Vol] 89 mg/dL 70 - 99 mg/dL [facility] [employer] Phone: Interpretation and review of laboratory results Abnormal [employer] Phone: Potassium [Moles/Vol] 4.4 mmol/L 3.7 - 5.3 mmol/L [employer] Phone: Sodium [Moles/Vol] 138 mmol/L 135 - 144 mmol/L [employer] Phone: Urea nitrogen (BldV) [Mass/Vol] 20 mg/dL 6 - 20 mg/dL [employer] Phone: Urea nitrogen/Creatinine (Bld) [Mass ratio] 26 High [employer] Phone: CBCOrdered By: Yasmin Thompson on 03-31-2021 Hematocrit (Bld) [Volume fraction] 38.8 % 36.3 - 47.1 % [employer] Phone: Hemoglobin.gastrointes tinal spec 1 Ql (Stl) 12.8 g/dL 11.9 - 15.1 g/dL [employer] Phone: Interpretation and review of laboratory results Abnormal [employer] Phone: MCH (RBC) [Entitic mass] 30.8 pg 25.2 - 33.5 pg [employer] Phone: MCHC (RBC) [Mass/Vol] 33.0 g/dL 28.4 - 34.8 g/dL [employer] Phone: MCV (RBC) [Entitic vol] 93.3 fL 82.6 - 102.9 fL [employer] Phone: NRBC Automated 0.0 0.0 per 100 WBC [employer] Phone: Platelet distribution width (Bld) [Ratio] 11.7 % Low 11.8 - 14.4 % [employer] Phone: Platelet mean volume (Bld) [Entitic vol] 8.9 fL 8.1 - 13.5 fL [employer] Phone: Platelets (Bld) [#/Vol] 299 10*3/uL [employer] Phone: RBC (Bld) [#/Vol] 4.16 10*6/uL 3.95 - 5.1 1 m/uL [employer] Phone: WBC (Bld) [#/Vol] 6.0 10*3/uL [employer] Phone: [employer] Phone: Laboratory - Chemistry and C hemistry - challengeOrdered By: Yasmin Thompson on 03-31-2021 GFR/1.73 sq M.predicted MDRD (S/P/Bld) [Vol rate/Area] [employer] Phone: Comment on above: Average GFR for 40-4 9 years old: 99 mL/min/1.73sq m Chronic Kidney Disease: <60 mL/min/1.73sq m Kidney failure: <15 mL/min/1.73sq m eGFR calculated using average adult body mass. Additional eGFR calculator available at: http://www.[employer]/multiple_crcl_2012.htm Stage 1: Some kidney damage normal GFR Stage 2: Mild kidney damage GFR 60-89 Stage 3: Moderate kidney damage GFR 30-59 Stage 4: Severe kidney damage GFR 15-29 Stage 5: Severe kidney damage GFR <15 ESRD - chronic treatment by dialysis or transplant Lipid PanelOrdered By: Ivelisse Thompson on 03-31-2021 Cholesterol [Mass/Vol] 168 mg/dL <200 [employer] Phone: Comment on above: Cholesterol Guidelines: <200 Desirable 200-240 Borderline >240 Undesirable Cholesterol in HDL [Mass/Vol] 52 mg/dL >40 [employer] Phone: Comment on above: HDL Guidelines: <40 Undesirable 40-59 Borderline >59 Desirable Cholesterol in LDL [Mass/Vol] 80 mg/dL 0 - 130 mg/dL [employer] Phone: Comment on above: LDL Guidelines: <100 Desirable 100-129 Near to/above Desirable 130-159 Borderline >159 Undesirable Direct (measured) LDL and calculated LDL are not interchangeable tests. Cholesterol in VLDL [Mass/Vol] NOT REPORTED High 1 - 30 mg/dL [employer] Phone: Cholesterol.total/Chol esterol in HDL [Mass ratio] 3.2 {ratio} <5 [employer] Phone: Interpretation and review of laboratory results Abnormal [employer] Phone: Triglyceride [Mass/Vol] 179 mg/dL High <150 [employer] Phone: Comment on above: Triglyceride Guidelines: <150 Desirable 150-199 Borderline 200-499 High >499 Very high Based on AHA Guidelines for fasting triglyceride, July 2012. [employer] Phone: No Panel InformationOrdered By: Yasmin Thompson on 03-31-2021 [employer] Work Phone: TSH without ReflexOrdered By : Yasmin Thompson on 03-31-2021 TSH Qn 4.48 m[IU]/L [employer] Work Phone: [employer] Work Phone: PROGRESSon 12-14-2019 PROGRESS HNO ID: [id number] Author: Kailey Daniel Service: ? Author Type: Nurse Practitioner Type: Progress Notes Filed: 12/14/2019 9:58 AM Note Text: Telemedicine Visit - Distance Health Virtual Visit Note Patient seen on WebNotes Online platform. Location of patient: [place] History of Present Illness Giulia Blackwell is a 39 year old year old female who presents for the past 9 days with symptoms that are:Sinusitis Care Path Symptoms Worsening after 3-4 days and lasting 5-6 days; worsening or new onset fever, daytime cough, or nasal discharge after initial improvement of a viral upper respiratory infection (URI). +purulent drainage , denies fever Symptoms include: Positive for Nasal congestion, Rhinorrhea and Face pain/pressure Oral intake: good Tobacco use: No Second hand smoke exposure: No Recent exposure to strep:No Sick contacts: no Recent travel: no OTC meds/remedies that patient has tried: sudafed.laura pot saline spray PAST MEDICAL HISTORY Diagnosis Date - Known health problems: none PAST SURGICAL HISTORY Procedure Laterality Date - SNGL No family history on file. Social History Tobacco Use - Smoking status: Not on file Substance Use Topics - Alcohol use: Not on file - Drug use: Not on file No current outpatient medications on file. No current facility-administere d medications for this visit. ALLERGIES No Known Allergies Video Exam (Examination performed via Video enabled technology) General appearance: Alert, oriented, pleasant, in NAD :Yes Ill appearing :No Lethargic appearing :Yes Eyes: Sclera clear :Yes Conjunctiva without erythema :Yes Ears: Tragus / outer ear tenderness by self palpation :No Oropharynx: normal, no erythema Frontal sinus tenderness by self palpation;Yes Maxillary sinus tenderness by self palpation :No Tender cervical adenopathy by self palpation :Yes Respiratory distress :No Coughing noted :No Audible wheezing noted :No Centor Criteria - Age (2-14=+1, 15-44=0, >=45 -1): 0 - Tonsillar exudates: 0 - Tender anterior cervical adenopathy: +1 - Fever by history (>38 or 100.4): 0 - Absence of cough: 0 0 points- probability of strep is 1-2.5% 1 point- probability of strep is 5-10% 2 points- probability of strep is 11-17% 3 points- probability of strep is 28-35% 4 points- probability of strep is 51-53% ASSESSMENT/PLAN: 1. Sinus problem - ICD9: 473.9, ICD10: J34.9 - Will begin treatment with as per antibiotic as written, see orders - The patient should also be given OTC cough and cold meds as needed and nasal saline gtts and suction prn for the first 5-7 days of treatment. - Supportive care with plenty of fluids, rest, and analgesia prn. - Follow up in 3-5 days if symptoms persist or worsen. - AMOXICILLIN 875 MG-POTASSIUM CLAVULANATE 125 MG TABLET - FLONASE SENSIMIST 27.5 MCG/ACTUATION NASAL SPRAY,SUSPENSION - SALINE MIST 0.65 % NASAL SPRAY AEROSOL -Tylenol (generic acetaminophen) 500 mg-2 tabs every 8 hrs. as needed for fever and aches -Sudafed (generic is fine), behind the counter, 2x30 mg tabs twice daily as needed for congestion -Mucinex (generic is fine) 1200 mg twice daily to help with cough and to thin out mucus -http://www.choosing wisely.org/patient-r esources/antibiotics /. This link shares information about when antibiotics may help and when they may not. - Red flags discussed for need for in person care - All questions answered Kailey Daniel CNP If you let us know who your primary care provider is, we will send them a notification of today?s visit through our electronic medical records system. Since not all providers have access to our notifications, we strongly encourage you to share the following record of today?s visit with your primary care provider at your next visit. This will help in providing you the best care. Normal [facility] PROGRESSon 10-24-2019 PROGRESS HNO ID: [id number] Author: Kailey Daniel Service: ? Author Type: Nurse Practitioner Type: Progress Notes Filed: 10/24/2019 10:08 AM Note Text: Telemedicine Visit - Distance Health Virtual Visit Note Patient seen on [facility] Online platform. Location of patient: [place] History of Present Illness: Giulia Blackwell is a 39 year old year old female with a history of onset 1 days ago. Positive for Redness, Itching, Discharge and Crusting in AM PAST MEDICAL HISTORY Diagnosis Date - Known health problems: none PAST SURGICAL HISTORY Procedure Laterality Date - SNGL No family history on file. Social History Tobacco Use - Smoking status: Not on file Substance Use Topics - Alcohol use: Not on file - Drug use: Not on file Current Outpatient Medications Medication Sig - erythromycin ophthalmic ointment Use 1 application in the left eye twice daily for 7 days. Gently pull down lower lid, apply thin ribbon of ointment to affected eye(s) No current facility-administere d medications for this visit. ALLERGIES No Known Allergies VIDEO EXAMINATION (Examination performed via Video enabled technology) General Appearance: 39 year old year old female in NAD Eyes: Normal Pupil Size EOMI Right: normal sclera Left: Conjunctival injection ASSESSMENT/PLAN: 1. [place] eye disease of left eye - ICD9: 372.03, ICD10: H10.022 - erythromycin ointment (pt is , polytrim ?? W/ ) PLAN: Warm compresses Hand washing OTC Artificial tears as directed May return to work or return to school after 24 hours of topical eye therapy. Kailey Daniel CNP If you let us know who your primary care provider is, we will send them a notification of today?s visit through our electronic medical records system. Since not all providers have access to our notifications, we strongly encourage you to share the following record of today?s visit with your primary care provider at your next visit. This will help in providing you the best care. Normal [facility] PROGRESSon 01-09-2019 PROGRESS HNO ID: [id number] Author: Phill Sommers Service: ? Author Type: Nurse Practitioner Type: Progress Notes Filed: 01/09/2019 4:50 PM Note Text: Telemedicine Visit - Distance Health Virtual Visit Note Patient seen on Express Care Online platform. Location of patient: [place] History of Present Illness Giulia Blackwell is a 38 year old year old female who presents for the past 1.5 weeks with symptoms that are:rapidly worsening and Sinusitis Care Path Symptoms persistent and not improving (greater-than or equal to 10 days), severe (greater-than or equal to 3-4 days), worsening or double-sickening (greater-than or equal to 3-4 days) and facial pain for 3-4 consecutive days Symptoms include: Positive for Cough, Face pain/pressure, Headache, Sore throat and Fatigue Initial onset began with nasal congestion and secretions with bloody streaks, and New onset of frontal headache and bilateral ear pressure Oral intake: hydration good Appetite good Tobacco use: No Second hand smoke exposure: No Recent exposure to strep:No Sick contacts: no Recent travel: Yes [place] (12/28-01/02) symptoms began on vacation OTC meds/remedies that patient has tried: ocean nasal spray and neti pot, sudafed multi-symptom no PAST MEDICAL HISTORY Diagnosis Date - Known health problems: none PAST SURGICAL HISTORY Procedure Laterality Date - SNGL No family history on file. Medications include ALLERGIES No Known Allergies Video Exam (Examination performed via Video enabled technology) General appearance: Alert, oriented, pleasant, in NAD :Yes Ill appearing :No Lethargic appearing :No Eyes: Sclera clear :Yes Conjunctiva without erythema :Yes Ears: Tragus / outer ear tenderness by self palpation :No Frontal sinus tenderness by self palpation;Yes Maxillary sinus tenderness by self palpation :Yes Tender cervical adenopathy by self palpation :Yes Respiratory distress :No Coughing noted :Yes Audible wheezing noted :No ASSESSMENT/PLAN: 1. Acute non-recurrent pansinusitis - ICD9: 461.8, ICD10: J01.40 - Will begin treatment with as per antibiotic as written, see orders - The patient should also be given warm salt water gargles, throat lozenges and/or OTC throat spray as needed and nasal saline gtts and suction prn for the first 5-7 days of treatment. - Supportive care with plenty of fluids, rest, and analgesia prn. - Follow up in 3-5 days if symptoms persist or worsen. - AMOXICILLIN 875 MG-POTASSIUM CLAVULANATE 125 MG TABLET - [place] nasal spray as directed - Add Flonase as directed -Tylenol (generic acetaminophen) 500 mg-2 tabs every 8 hrs. as needed for fever and aches -Mucinex (generic is fine) 1200 mg twice daily to help with cough and to thin out mucus -http://www.choosing wisely.org/patient-r esources/antibiotics /. This link shares information about when antibiotics may help and when they may not. - Red flags discussed for need for in person care - All questions answered Phill Sommers APRN.CNP If you let us know who your primary care provider is, we will send them a notification of today?s visit through our electronic medical records system. Since not all providers have access to our notifications, we strongly encourage you to share the following record of today?s visit with your primary care provider at your next visit. This will help in providing you the best care. [facility] PATIENT INFO ACUTE SINUSITIS OVERVIEW Rhinosinusitis, or more commonly sinusitis, is the medical term for inflammation (swelling) of the lining of the sinuses and nose. The sinuses are the hollow areas within the facial bones that are connected to the nasal openings. The sinuses are lined with mucous membranes, similar to the inside of the nose. There are two main types of sinusitis: acute and chronic. Acute sinusitis is inflammation that lasts for less than four weeks while chronic sinusitis lasts for more than 12 weeks. Acute sinusitis is common, affecting approximately one million people per year in the [place]. ACUTE SINUSITIS CAUSES The most common cause of acute sinusitis is a viral infection associated with the common cold. Bacterial sinusitis occurs much less commonly, in only 0.5 to 2 percent of cases, usually as a complication of viral sinusitis. Because antibiotics are effective only against bacterial, and not viral, infections, most people do not need antibiotics for acute sinusitis. ACUTE SINUSITIS SYMPTOMS Symptoms of acute sinusitis include: ? Nasal congestion or blockage ? Thick, yellow to green discharge from the nose ? Pain in the teeth ? Pain or pressure in the face that is worse when bending forwards Other acute sinusitis symptoms can include fever (temperature greater than 100.4?F or 38?C), fatigue, cough, difficulty or inability to smell, ear pressure or fullness, headache, and bad breath. In most cases, these symptoms develop over the course of one day and begin to improve within seven to 10 days. DO I NEED TO BE EXAMINED? It is difficult to know if you have a viral or bacterial sinus infection initially. However, most people with a viral infection improve without treatment within seven to 10 days after symptoms begin. Bacterial sinusitis also sometimes improves without treatment, although it can also worsen and require treatment. If one or more of the following bothersome symptoms last more than seven days, an examination by a healthcare provider is recommended: ? Thick, yellow to green discharge from the nose ? Face or tooth pain, especially if it is only on one side ? Tenderness over the maxillary sinuses (located on the left and right side of the nose, inside the cheekbones) ? Symptoms that initially improve and then worsen When to seek immediate help ? If you have one or more of the following symptoms, you should seek medical attention immediately (even if symptoms have been present for less than seven days): ? High fever (>102.5? F or 39.2? C) ? Sudden, severe pain in the face or head ? Double vision or difficulty seeing ? Confusion or difficulty thinking clearly ? Swelling or redness around one or both eyes ? Stiff neck, shortness of breath ACUTE SINUSITIS TREATMENT Initial treatment of a sinus infection aims to relieve symptoms since almost everyone will improve within the first seven to 10 days. Experts recommend avoiding antibiotics during this time unless there is clear evidence of a severe bacterial infection. Initial treatment Pain relief ? Non-prescription pain medications, such as acetaminophen (eg, Tylenol?) or ibuprofen (eg, Motrin?, Advil?) are recommended for pain. Nasal irrigation and saline sprays ? Rinsing the nose with a salt-water (saline) solution is called nasal irrigation or nasal lavage. Saline is also available in a standard nasal spray, although this is not as effective as using larger amounts of water in an irrigation. Nasal irrigation is particularly useful for treating drainage down the back of the throat, sneezing, nasal dryness, and congestion. The treatment helps by rinsing out allergens and irritants from the nose. Saline rinses also clean the nasal lining and can be used before applying sprays containing medications, to get a better effect from the medication. Nasal lavage with warmed saline can be performed as needed, once per day, or twice daily for increased symptoms. Nasal lavage carries few risks when performed correctly. Saline nasal sprays and irrigation kits can be purchased [id number]. Saline mixes can also be purchased or patients can make their own solution. A variety of devices, including bulb syringes, Neti pots, and bottle sprayers, may be used to perform nasal lavage; instructions for nasal lavage are provided in the table. At least 200 mL (about 3/4 cup) of fluid is recommended for each nostril. Nasal decongestants ? Nasal decongestant sprays, including oxymetazoline (Afrin?) and phenylephrine (Donny-synephrine?) can be used to temporarily treat congestion. However, these sprays should not be used for more than two to three days due to the risk of rebound congestion (when the nose is congested constantly unless the medication is used repeatedly). Other treatments ? Other treatments for congestion, such as oral antihistamines (such as diphenhydramine/Roselia dryl?) or zinc supplements are not proven to improve symptoms of sinusitis and can have unwanted side effects. Medications to thin secretions (such as guaifenesin) may help to clear mucus. Secondline treatment ? If symptoms have not improved in seven to ten days, you should arrange for medical evaluation. You may need further treatment. Nasal glucocorticoids ? Nasal glucocorticoids (steroids delivered by a nasal spray) can help to reduce swelling inside the nose, usually within two to three days. These drugs have few side effects and dramatically relieve symptoms in most people. There are a number of nasal glucocorticoids available by prescription. These drugs are all effective, but differ in how frequently they must be used and how much they cost. You may need to use a nasal decongestant for a few days before starting a nasal glucocorticoid to reduce nasal swelling; this will allow the nasal glucocorticoid to reach more areas of the nasal passages Do I need an antibiotic? ? If bothersome symptoms of sinusitis persist for 10 or more days, it is possible that you have bacterial sinusitis. The need for antibiotics depends upon the severity of your symptoms. Mild symptoms ? There are two possible treatment options if you have mild sinusitis symptoms: treat with antibiotics or continue to watch and wait for one week. Watching and waiting is a reasonable option because up to 75 percent of people with bacterial sinusitis improve within one month without antibiotics. During the watch and wait period, treatments to improve symptoms are recommended. If symptoms worsen or do not improve after watching and waiting, treatment with an antibiotic is usually recommended. Treatments to relieve symptoms are recommended while using antibiotics. Moderate or severe symptoms ? Most healthcare providers will prescribe an antibiotic for moderate to severe symptoms (temperature >38.3? C or 101? F and/or severe pain that interferes with usual activities). Treatments to relieve symptoms are also recommended during antibiotic treatment. One of the least expensive and most effective antibiotics for sinusitis is amoxicillin. An alternate antibiotic will be prescribed if you are allergic to penicillin. Regardless of which antibiotic is prescribed, it is important to follow the dosing instructions carefully and to finish the entire course of treatment. Taking the medication less often than prescribed or stopping the medication early can lead to complications, such as a recurrent infection. What if I do not improve with treatment? ? If you do not improve or worsen after a course of antibiotics, you should be re-examined. In some cases, symptoms of sinusitis improve but then recur. This is usually because the infection was not completely eliminated by the antibiotic. An alternate antibiotic, extended antibiotic treatment, and/or further testing may be recommended, depending upon your individual situation. Normal [facility] Vital Signs Date Time Vital Sign Value Performing Clinician Facility 01-04-2023 18:15-0400 Body height 162.56 cm Shanel Ventura Other [employer] Other 01-04-2023 18:15-0400 Body mass index (BMI) [Ratio] 29.18 kg/m2 Shanel Audrey Other [employer] Other 01-04-2023 18:15-0400 Body weight 77.11 kg Shanel Ventura Other [employer] Other 01-04-2023 18:15-0400 Diastolic blood pressure 64 mm[Hg] Shanel Ventura Other [employer] Other 01-04-2023 18:15-0400 Respiratory rate 18 /min Shanelkassy Ventura Other [employer] Other 01-04-2023 18:15-0400 SaO2% (BldA) [Mass fraction] 97 % Shanel Ventura Other [employer] Other 01-04-2023 18:15-0400 Systolic blood pressure 130 mm[Hg] Shanel Ventura Other [employer] Other Encounters Encounter Date Encounter Type Care Provider Facility Start: 03-28-2024 End: 03-28-2024 ambulatory SHELBY VEGA [facility] Start: 03-25-2024 End: 03-25-2024 ambulatory YASMIN THOMPSON [facility] Start: 03-25-2024 Encounter for nona l adult medical examination without abnormal findings ATWOOD THOMPSON [facility] Start: 02-10-2024 End: 02-10-2024 ambulatory JASWANT GILES [facility] Start: 02-10-2024 End: 02-10-2024 Subsequent hospital visit by physician Yasmin Sun CNP Work Phone: [facility] Comment on above: Change in bowel habi ts; Flatulence, eructation and gas pain Start: 05-24-2023 End: 05-24-2023 ambulatory YASMIN Myers THOMPSON [facility] Start: 02-08-2023 End: 02-10-2023 Subsequent hospital visit by physician [facility] Ultrasound Room [facility] Ultrasound 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 Start: 01-17-2023 End: 01-17-2023 Subsequent hospital visit by physician Yasmin Sun CNP Work Phone: [facility] Comment on above: Hypothyroidism, unsp ecified type Start: 01-04-2023 End: 01-04-2023 ambulatory Shanel Ventura Facility:[facility] Start: 01-04-2023 End: 01-04-2023 Patient encounter procedure WINDOW [facility]ER-C Shanel Ventura Work Phone: [facility] Work Phone: Start: 01-04-2023 End: 01-04-2023 ambulatory [facility] [facility]C Shanel Ventura Work Phone: [facility] Work Phone: Start: 01-04-2023 Office outpatient vi sit 15 minutes Shanel Ventura [facility] Start: 12-11-2022 End: 12-11-2022 Subsequent hospital visit by physician Yasmin Thompson APRN - [employer] Work Phone: [facility] Comment on above: Abdominal bloating; Loose stools Start: 12-09-2022 End: 12-09-2022 Subsequent hospital visit by physician Yasmin Thompson APRN - [employer] Work Phone: [facility] Comment on above: Elevated glucose; Abdominal bloating; Loose stools Start: 06-23-2022 End: 06-24-[address] RANDAL BLOUNT Facility:[facility] Start: 05-31-2022 End: 05-31-[address] RANDAL BLOUNT Facility:[facility] Start: 05-05-2022 End: 05-07-2022 Patient encounter status [address] Rad[facility] Start: 05-05-2022 End: 05-07-2022 Subsequent hospital visit by physician [address] Rad[facility] Comment on above: Numbness and tinglin g in right hand; Wellness examination Start: 03-31-2021 End: 03-31-2021 Patient encounter status Yeison Spencer MD Work Phone: [facility] Start: 03-31-2021 End: 03-31-2021 Subsequent hospital visit by physician Yeison Spencer MD Work Phone: [facility] EKG Comment on above: Chest pain, unspecif ied type Wellness examination ; Lipid screening; Diabetes mellitus screening Start: 03-27-2017 End: 04-18-2019 Patient encounter status Yeison Spencer MD Work Phone: [facility] Procedures Date Procedure Procedure Detail Performing Clinician Start: 02-08-2023 Us soft tissue head & neck real time imge docm Yasmin Thompson APRN - [employer] Work Phone: Start: 01-17-2023 Assay of free thyroxine Yasmin Thompson APRN - [employer] M[employer] Work Phone: Start: 01-04-2023 X-ray of middle finger [employer]OW [employer]ER[employer]C Shanel Audrey Work Phone: Start: 12-11-2022 Blood occult peroxid ase actv qual feces 1 deter Yasmin Myers Jay [employer] DIRECT[employer] Work Phone: Start: 12-09-2022 C-reactive protein Keri Myers Jay [employer] Work Phone: Start: 12-09-2022 Comprehensive metabo lic panel Yasminarlen Thompson DI[employer]ET[employer] DIRECT[employer] Work Phone: Start: 05-05-2022 Radex spine cervical 2 or 3 views Yasminarlen Thompson DIETET[employer] DIRECT[employer] Work Phone: Start: 06-14-2021 Microscopic observat ion [Identifier] in Cervix by Cyto stain Yasminderrick Thompson DIETETICS DIRECT[employer] Work Phone: Start: 03-31-2021 Ecg routine ecg w/le ast 12 lds w/i&r Yasmin Thompson DIETETICS DIRECTOR [employer] Work Phone: Start: 03-31-2021 Basic metabolic pane l calcium total Yasminarlen Thompson DIETETICS DIRECTOR [employer] Work Phone: Start: 03-31-2021 Lipid panel Yasminderrick ramírez [employer] Work Phone: Plan of Treatment Date Care Activity Detail Author Start: 05-04-2032 DTaP/Tdap/Td vaccine (2 - Td or Tdap) DTaP/Tdap/Td vaccine (2 - Td or Tdap) [facility] Start: 05-05-2027 Lipid panel Lipids [facility] Start: 12-01-2024 Depression [facility] Start: 07-18-2024 End: 07-18-2024 Admission to same day surgery center 07/18/2024 12:05 PM EDT - 07/18/2024 12:50 PM EDT Surgery [facility] OR [address] [place] [id number] Evelyn Gonzalez MD [address] [place] [id number] COLORECTAL CANCER SCREENING, NOT HIGH RISK [facility] OR Comment on above: COLORECTAL CANCER SC REENING, NOT HIGH RISK Start: 07-18-2024 End: 07-18-2024 Colon ca scrn not hi rsk ind COLORECTAL CANCER SCREENING, NOT HIGH RISK Screening for colon cancer 07/18/2024 12:05 PM EDT [facility] Start: 07-18-2024 Subsequent hospital visit by physician 07/18/2024 12:05 PM EDT Hospital Encounter [facility] OR [address] [id number] Evelyn Gonzalez MD [address] [place] [id number] [facility] Start: 06-14-2024 Screening for malign ant neoplasm of cervix [facility] Start: 05-29-2024 End: 05-29-2024 Patient encounter procedure 05/29/2024 3:20 PM EDT Office Visit [facility] Primary Care [address] [place] [address] [address] [place] [address] Yasmin Thompson, DIETETICS DIRECTOR - RADIO MESSAGE ROUTER [address] [facility] [address] [place] [address] Wellness [facility] Primary [facility] Comment on above: Wellness Start: 05-23-2024 Influenza vaccination Flu vacc ine (Season Ended) [facility] Start: 11-04-2023 Depression [facility] Start: 07-07-2023 Lipid panel [facility] Phone: Start: 06-23-2023 COVID-19 Vaccine ( season) COVID-19 Vaccine ( season) [facility] Start: 05-31-2023 End: 05-31-2023 Patient encounter procedure 05/31/2023 Office Visit Primary Care Yasmin Thompson, DIETETICS DIRECTOR - RADIO MESSAGE ROUTER [address] [facility] [address] [place] [address] [facility] Start: 05-04-2023 Depression Monitoring Depression Mon [facility] Start: 01-23-2023 End: 01-23-2023 Patient encounter procedure 01/23/2023 Office Visit Primary Care Yasmin Thompson, DIETETICS DIRECTOR - RADIO MESSAGE ROUTER [address] [facility] [address] [place], [place] [id number] [facility] Start: 11-04-2022 End: 11-04-2022 Patient encounter procedure 11/04/2022 Office Visit Primary Care Yasmin Thompson, DIETETICS DIRECTOR - RADIO MESSAGE ROUTER [address] [place] [address] [facility] Start: 10-26-2022 Screening for malign ant neoplasm of cervix Cervical cancer screen [facility] Comment on above: Postponed from 08/04 (Not Indicated) Start: 06-23-2022 Influenza vaccination Flu vaccine (# 1) [facility] Start: 03-27-2022 HIV screening HIV screen [facility] Work Phone: Comment on above: Postponed from 08/04 (Patient Refused) Start: 11-01-2021 COVID-19 Vaccine (4 - Booster for Moderna series) COVID-19 Vaccine (4 - Booster for Moderna series) [facility] Start: 07-26-2021 End: 07-26-2021 Patient encounter procedure 07/26/2021 Office Visit Family Medicine Gase, Yeison Rowe MD [address] [facility] [address] [place] [id number] [facility] Start: 2010 Screening for malign ant neoplasm of cervix HPV (without or with Pap) [facility] Start: 2001 Screening for malign ant neoplasm of cervix [facility] Start: 1999 DTaP/Tdap/Td vaccine (1 - Tdap) DTaP/Tdap/Td vaccine (1 - Tdap) [employer] Phone: Start: 1995 HIV screening HIV screen [employer] [facility] Start: 1980 Hepatitis B vaccine (1 of 3 - 3-dose series) Hepatitis B vaccine (1 of 3 - 3-dose series) [employer] End: 12-11-2022 Calprotectin Stool [employer] Phone: Comment on above: 1 Occurrences starti ng 12/11/2022 until 12/11/2022 Celiac Disease Panel Celiac Dise ase Panel Lab Routine Abdominal bloating Loose stools 12/09/2022 5:03 PM EST [employer] Phone: EKG 12 lead EKG 12 lead ECG Routine Chest pain, unspecified type 03/31/2021 2:34 PM EDT [employer] Phone: End: 02-10-2024 Gastrointestinal Panel, Molecular [employer] Comment on above: 1 Occurrences starti ng 02/10/2024 until 02/10/2024 End: 02-10-2024 Giardia / Cryptosporidum antigens [employer] Comment on above: 1 Occurrences starti ng 02/10/2024 until 02/10/2024 End: 02-10-2024 H. pylori antigen [employer] Comment on above: Once for 1 Occurrenc es starting 02/10/2024 until 02/10/2024 End: 02-10-2024 H. Pylori Antigen, Stool H. Pylori Antigen, Stool Lab Routine Flatulence, eructation and gas pain Change in bowel habits 1 Occurrences starting 02/10/2024 until 02/10/2024 [employer] Comment on above: 1 Occurrences starti ng 02/10/2024 until 02/10/2024 End: 03-31-2021 Hemoglobin A1c/Hemoglobin.total in Blood Hemoglobin A1C Lab Routine Wellness examination Diabetes mellitus screening 1 Occurrences starting 03/31/2021 until 03/31/2021 [employer] Phone: Comment on above: 1 Occurrences starti ng 03/31/2021 until 03/31/2021 Hemoglobin A1c/Hemoglobin.total in Blood Hemoglobin A1C Lab Routine Wellness examination Diabetes mellitus screening 03/31/2021 2:20 PM EDT [facility] Work Phone: End: 12-09-2022 Hemoglobin A1c/Hemoglobin.total in Blood [facility] Work Phone: Comment on above: 1 Occurrences starti ng 12/09/2022 until 12/09/2022 End: 02-10-2024 Pancreatic elastase, fecal [facility] Work Phone: Comment on above: 1 Occurrences starti ng 02/10/2024 until 02/10/2024 End: 02-10-2024 SPECIMEN REJECTION [facility] Comment on above: Once for 1 Occurrenc es starting 02/10/2024 until 02/10/2024 End: 01-17-2023 Thyroid Peroxidase Antibody [facility] Work Phone: Comment on above: 1 Occurrences starti ng 01/17/2023 until 01/17/2023 Immunizations Immunization Date Immunization Notes Care Provider [facility] 08-01-2022 influenza virus vaccine, unspecified formulation Yasmin Thompson APRN - [employer] MESSAGE ROUTER Work Phone: [facility] Work Phone: 05-04-2022 tetanus toxoid, redu leona diphtheria toxoid, and acellular pertussis vaccine, adsorbed [facility] 4 [facility] Work Phone: 09-06-2021 COVID-19, MODERNA Booster BLUE border, (age 18y+), IM, 50mcg/0.25mL Mth 4 [facility] 2021 influenza virus vaccine, unspecified formulation [facility] 4 [facility] 01-15-2021 COVID-19, Moderna, P F, 100mcg/0.5mL Yeison Spencer MD Work Phone: [facility] Work Phone: 12-16-2020 COVID-19, Moderna, P F, 100mcg/0.5mL Yeison Spencer MD Work Phone: [facility] Work Phone: 07-30-2020 influenza virus vaccine, unspecified formulation Yeison Spencer MD Work Phone: [facility] 07-16-2019 influenza virus vaccine, unspecified formulation Yeison Spencer MD Work Phone: [facility] Work Phone: 06-16-2018 influenza virus vaccine, unspecified formulation Yeison Spencer MD Work Phone: [facility] 06-16-2018 influenza, injectabl e, quadrivalent, preservative free Yeison Spencer MD Work Phone: [facility] Payers Date Payer Category Payer Self-pay 1980 Unknown [id number] [id number] [id number] 1980 Unknown [id number] [id number] [id number] 1980 Unknown [id number] 2.16.8 [id number] 1980 Unknown [id number] 2.16.8 [id number] 1980 Unknown [id number] 2.16.8 [id number] 1980 Unknown [id number] 2.16.8 [id number] 1959 Unknown [id number] Unknown [id number] 2.16.8 [id number] Social History Date Type Detail Facility Start: 03-19-2019 End: 12-01-2023 Tobacco smoking status [facility] Former smoker [facility] Work Phone: Start: 10-23-1996 End: 06-27-2012 History of tobacco use Current smoker [employer] Start: 03-19-2019 End: 12-09-2022 Cigarettes smoked current (pack per day) - Reported [employer] Work Phone: Start: 03-19-2019 End: 12-01-2023 Tobacco use and exposure Never used [employer] Start: 03-19-2019 End: 02-08-2024 Alcohol intake Current drinker of alcohol (finding) [employer] Work Phone: Start: 03-31-2021 End: 12-09-2022 History SDOH Financial 5 [employer] Work Phone: Start: 03-31-2021 End: 12-09-2022 History SDOH Food Worry 1 [employer] Work Phone: Start: 03-27-2017 Alcohol Comment socially [employer] Work Phone: Start: 1980 Sex Assigned At Not on file [employer] Work Phone: Start: 10-23-1996 End: 06-27-2012 History of tobacco use Cigarette Smoker [employer] Work Phone: Start: 12-09-2022 History SDOH Transpo rt Non-Med 2 [employer] Work Phone: Start: 1980 Sex Assigned At Female F [facility] Start: 12-09-2022 End: 02-08-[address] [facility] [employer] Other How hard is it for y ou to pay for the very basics like food, housing, medical care, and heating Not hard at all [employer] (I/We) worried wheth er (my/our) food would run out before (I/we) got money to buy more. Never true [employer] At any time in the p ast 12 months, were you homeless or living in nursing home [including now]? 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 Wear the splint at all times, you may remove it to shower but then put it back on your finger. Take ibuprofen as needed for pain. Call orthopedics for follow-up exam. [employer] Other Evaluation note* Diagnosis Chest pain, unspecified type documented in this encounter [employer] Work Phone: [email or web address] note* Diagnosis Wellness examination Lipid screening Screening for lipoid disorders Diabetes mellitus screening Screening for diabetes mellitus documented in this encounter [employer] Phone: [email or web address] note* Diagnosis Numbness and tingling in right hand Disturbance of skin sensation Wellness examination documented in this encounter [employer] Phone: evaltvytfz note* Diagnosis Elevated glucose Other abnormal glucose Abdominal bloating Flatulence, eructation, and gas pain Loose stools Abnormal feces documented in this encounter [employer] Phone: [email or web address] note* Diagnosis Abdominal bloating Flatulence, eructation, and gas pain Loose stools Abnormal feces documented in this encounter [employer] Phone: evaluation noteNo assessment information available [facility] Work Phone: Evaluation note* Diagnosis Hypothyroidism, unspecified type documented in this encounter [employer] Phone: [email or web address] note* Diagnosis Arcelia's disease Chronic lymphocytic thyroiditis documented in this encounter [employer] Phone: [email or web address] note* Diagnosis Change in bowel habits Other symptoms involving digestive system Flatulence, eructation and gas pain Flatulence, eructation, and gas pain Screening for colon cancer Special screening for malignant neoplasms, colon documented in this encounter [facility] general Narrative - Reported* Type Description Date Surgical History C section Hospitalization History See Above [employer] Other Summary Purpose Family History No Family History Records FoundNo Family History Records FoundNo Family History Records FoundNo Family History Records Found Advance Directives No Advanced Directives Records FoundDocuments on File Type Date Recorded Patient In Flight Technician Expl anation ACP-Advance Directive [employer] Documents on File Type Date Recorded Patient In Flight Technician Expl anation ACP-Advance Directive [employer]aire[employer] Reason for Referral Status Reason Specialty Diagnoses / Procedures Referred By Contact Referred To Contact Pending Review Cardiology Diagnoses Chest pain, unspecified type Procedures EKG 12 lead Yasmin Thompson APRN - CNP [address] [place] [address] Specialty Diagnoses / Procedures Referred By Contac t Referred To Contact Radiology Diagnoses Arcelia's disease Procedures US THYROID Yasmin Thompson APRN - CNP [address] [place] [address] Referral ID Status Reason Start Date Expiration Date Visits Re quested Visits Authorized [id number] Open 01/23/2023 01/23/2024 1 1 Additional Source Comments INFORMATION SOURCE (unrecogn ized section and content) DATE CREATED AUTHOR 12/14/2019 [facility] DATE CREATED AUTHOR AUTHOR'S ORGANIZ ATION 07/01/2022 [facility] DATE CREATED AUTHOR AUTHOR'S ORGANIZ ATION 01/20/2023 [facility] DATE CREATED AUTHOR AUTHOR'S ORGANIZ ATION 03/30/2024 [facility] (unrecognized sec tion and content) Verification Specialist Relationship Specialty Start Date End Date Yasmin Thompson APRN - CNP [address] [place] [address] PCP - General Family Nurse Practitioner 02/01/22 Verification Specialist Relationship Specialty Start Date End Date Yasmin Thompson APRN - CNP [address] [place] [address] PCP - General Family Nurse Practitioner 02/01/22 Verification Specialist Relationship Specialty Start Date End Date Yasmin Thompson DIETETICS DIRECTOR - [address] [place] [address] PCP - General Family Nurse Practitioner 11/01/22 Verification Specialist Relationship Specialty Start Date End Date Yasmin Thompson APRN - [address] [place] [address] PCP - General Family Nurse Practitioner 11/01/22 Team Status: Inactive Member Role Status Dates Shanel Ventura NP-C Attending Provider Active Verification Specialist Relationship Specialty Start Date End Date Yasmin Thompson APRN - [address] [place] [address] PCP - General Family Nurse Practitioner 11/01/22 Verification Specialist Relationship Specialty Start Date End Date Yasmin Thompson APRN - [address] [place] [address] PCP - General Family Nurse Practitioner 11/01/22 Verification Specialist Relationship Specialty Start Date End Date Yasmin Thompson APRN - [facility] [address] [place] [address] [place] [address] PCP - General Family Nurse Practitioner 11/01/22 Goals (unrecognized section and content) Goals may be documented in a n alternate sectionNo Information REASON FOR VISIT (unrecogniz ed section and content) Specialty Diagnoses / Procedures Referred By Brian t Referred To Contact Radiology Diagnoses Arcelia's disease Procedures US THYROID Yasmin Thompson DIETETICS DIRECTOR - [address] [place] [address] Referral ID Status Reason Start Date Expiration Date Visits Re quested Visits Authorized [id number] Open 01/23/2023 01/23/2024 1 1 FOR RECORDS PERTAINING TO PATIENTS WHO ARE OR HAVE BEEN ENROLLED IN A CHEMICAL DEPENDENCY/SUBSTANCEABUSE PROGRAM, SOME INFORMATION MAY BE OMITTED. This clinical summary was aggregated from multiple sources. Caution should be exercised in using it in the provision of clinical care. This summary normalizes information from multiple sources, and as a consequence, information in this document may materially change the coding, format and clinical context of patient data. In addition, data may be omitted in some cases. CLINICAL DECISIONS SHOULD BE BASED ON THE PRIMARY CLINICAL RECORDS. [facility] [employer] [facility]. provides no warranty or guarantee of the accuracy or completeness of information in this document.
== END 2024-05-20 10:44 | disposition home or self-care (01) ==
LOC: MAMMO 10:44
PROVIDERS: Visit Provider Obstetrics & Gynecology
DX: Z12.31 Encounter for screening mammogram for malignant neoplasm of breast (principal)
CPT/HCPCS: 77063; 77067

== ENCOUNTER 2024-07-18 19:03 | Outpatient (REF) | payer OTHER, SELFPAY ==
--- OUTSIDE RECORDS SUMMARY | 2024-07-18 19:06 | XMS_ITS | CCD ---
Author Organization [facility] Care Team Providers Care Catering Associate Name Role Phone Gase Yeison ESTRADA Primary Care Provider Yasmin Clark APRN, CNP Primary Care Provide r MINE, DR TEE Attending Unavailable KARASIK, DR TEE Consulting Unavailable MISC, DR FLANAGAN Primary Care Unavailable KARASIK, DR TEE Admitting Unavailable KARASIK, DR TEE Admitting Unavailable KARASIK, DR TEE Attending Unavailable KARASIK, DR TEE Consulting Unavailable MISC, DR FLANAGAN Primary Care Unavailable MCADOO, DR KANIKA Hodge Consulting Unavailable Yasmin Clark APRN, CNP Primary Care Provide r NISA Ventura Attending Provider [phone] Shanel Ventura Unavailable Shanel Ventura Attending Unavailable [...] Active Start: 01-03-2023 [facility] levothyroxine (SYNTHROID) 50 MCG tablet [...] Start: 01-20-2023 take 1 capsule by mo [facility] once daily venlafaxine (EFFEXOR XR) 75 MG [...] Name Value Interpretation Reference Range Facility T3, [facility] 03-29-2024 Free T3 [Mass/Vol] 2.50 pg/mL Normal 2.00-4.40 [facility] Comment on above: Performed By: #### Wong CAG, STLPCR #### [facility] [employer] [address] [place] [address] [id number] Account Representative: Amador Awan MD [facility] [address] [place] [address] [place] [address] Account Representative: Kanika Lozada MD Thyroxine, [facility] 03-29-2024 Thyroxine, Free 1.1 ng/dL Normal 0.92-1.68 [facility] Comment on above: Performed By: #### Wong CAG, STLPCR #### [address] [id number] Account Representative: Amador Awan MD [facility] [address] [place] [address] [place] [address] Account Representative: Kanika Lozada MD CBCon 03-25-2024 Erythrocyte distribution width (RBC) [Ratio] 11.9 % Normal 11.8-14.4 [facility] Comment on above: Performed By: #### C P, CBC #### [facility] [address] [place] [address] [place] [address] Account Representative: Kanika Lozada MD #### GLYHGB #### [address] [place], [place] [id number] Account Representative: Amador Awan MD Hematocrit (Bld) [Volume fraction] 37.5 % Normal 36.3-47.1 [facility] Comment on above: Performed By: #### C P, CBC #### [address] [place] [id number] Account Representative: Kanika Lozada MD #### GLYHGB #### [address] [id number] Account Representative: Amador Awan MD Hemoglobin (Bld) [Mass/Vol] 12.6 g/dL Normal 11.9-15.1 [facility] Comment on above: Performed By: #### C P, CBC #### [facility] [address] [place] [address] Dr[place] [phone] Account Representative: Kanika Lozada MD #### GLYHGB #### [address] [place], [place] [id number] Account Representative: Amador Awan MD MCH (RBC) [Entitic mass] 30.6 pg Normal 25.2-33.5 [facility] Comment on above: Performed By: #### C P, CBC #### [facility] [address] [place] [address] [place] [address] Account Representative: Kanika Lozada MD #### GLYHGB #### [address] [id number] Account Representative: Amador Awan MD MCHC (RBC) [Mass/Vol] 33.6 g/dL Normal 28.4-34.8 [facility] Comment on above: Performed By: #### C P, CBC #### [facility] [address] [place] [address] Dr. [place] [phone] Account Representative: Kanika Lozada MD #### GLYHGB #### [address] [id number] Account Representative: Amador Awan MD MCV (RBC) [Entitic vol] 91.0 fL Normal 82.6-102.9 [facility] Comment on above: Performed By: #### C P, CBC #### [address] [place] [phone] Account Representative: Kanika Lozada MD #### GLYHGB #### [place] [address] Account Representative: Amador Awan MD NRBC Automated 0.0 per 100 WBC Normal 0.0 [facility] Comment on above: Performed By: #### C P, CBC #### [address] [place] [id number] Account Representative: Kanika Lozada MD #### GLYHGB #### [place] [address] Account Representative: Amador Awan MD Platelet mean volume (Bld) [Entitic vol] 8.9 fL Normal 8.1-13.5 [facility] Comment on above: Performed By: #### C P, CBC #### [address] [place] [id number] Account Representative: Kanika Lozada MD #### GLYHGB #### [address] [place] [address] Account Representative: Amador Awan MD Platelets (Bld) [#/Vol] 291 10*3/uL Normal 138-453 [facility] Comment on above: Performed By: #### C P, CBC #### [facility] [address] [place], [place] 9183683 Account Representative: Kanika Lozada MD #### GLYHGB #### [address] [place] [address] Account Representative: Amador Awan MD RBC (Bld) [#/Vol] 4.12 10*6/uL Normal 3.95-5.11 [facility] Comment on above: Performed By: #### C P, CBC #### [facility] [address] [place] [address] Dr. [place], [place] 9763483 Account Representative: Kanika Lozada MD #### GLYHGB #### [address] [address] Account Representative: Amador Awan MD WBC (Bld) [#/Vol] 5.3 10*3/uL Normal 3.5-11.3 [facility] Comment on above: Performed By: #### C P, CBC #### [facility] [address] [place] [address] Dr. [place], [place] [id number] Account Representative: Kanika Lozada MD #### GLYHGB #### [address] [place] [address] Account Representative: Amador Awan MD Comp Metabolic Profon 2023 Albumin [Mass/Vol] 4.4 g/dL Normal 3.5-5.2 [facility] Comment on above: Performed By: #### C P, CBC #### [facility] [address] [place], [place] [id number] Account Representative: Kanika Lozada MD #### GLYHGB #### [address] [place] [address] Account Representative: Amador Awan MD Albumin/Glob Ratio 1.6 Normal 1.0-2.5 [facility] Comment on above: Performed By: #### C P, CBC #### [facility] [address] [place] [address] Dr. [place], [place] [phone] Account Representative: Kanika Lozada MD #### GLYHGB #### [address] [address] Account Representative: Amador Awan MD Alkaline Phos 91 U/L Normal 35-104 [facility] Comment on above: Performed By: #### C P, CBC #### [address] [place], [place] 5473683 Account Representative: Kanika Lozada MD #### GLYHGB #### [address] [address] Account Representative: Amador Awan MD ALT [Catalytic activity/Vol] 13 U/L Normal 5-33 [facility] Comment on above: Performed By: #### C P, CBC #### [address] [place], [place] 4800083 Account Representative: Kanika Lozada MD #### GLYHGB #### [address] [address] Account Representative: Amador Awan MD Anion gap [Moles/Vol] 8 mmol/L Low 9-17 [facility] Comment on above: Performed By: #### C P, CBC #### [address] [place], [place] 6552983 Account Representative: Kanika Lozada MD #### GLYHGB #### [address] [address] Account Representative: Amador Awan MD AST [Catalytic activity/Vol] 18 U/L Normal <32 [facility] Comment on above: Performed By: #### C P, CBC #### [facility] [address] [place], [place] 5976983 Account Representative: Kanika Lozada MD #### GLYHGB #### [address] [address] Account Representative: Amador Awan MD Bilirubin [Mass/Vol] 0.2 mg/dL Low 0.3-1.2 [facility] Comment on above: Performed By: #### C P, CBC #### [facility] [address] [place], [place] [id number] Account Representative: Kanika Lozada MD #### GLYHGB #### [address] [address] Account Representative: Amador Awan MD BUN/CRE Ratio 21 High 9-20 [facility] Comment on above: Performed By: #### C P, CBC #### [facility] [address] [place], [place] [id number] Account Representative: Kanika Lozada MD #### GLYHGB #### [address] [address] Account Representative: Amador Awan MD Calcium [Mass/Vol] 9.1 mg/dL Normal 8.6-10.4 [facility] Comment on above: Performed By: #### C P, CBC #### [facility] [address] [place], [place] [phone] Account Representative: Kanika Lozada MD #### GLYHGB #### [address] [address] Account Representative: Amador Awan MD Chloride [Moles/Vol] 104 mmol/L Normal 98-107 [facility] Comment on above: Performed By: #### C P, CBC #### [facility] [address] [place] [address] Account Representative: Kanika Lozada MD #### GLYHGB #### [facility] [address] [place], [place] 3487108 Account Representative: Amador Awan MD CO2 [Moles/Vol] 26 mmol/L Normal 20-31 [facility] Comment on above: Performed By: #### C P, CBC #### [facility] [address] [place] [address] Account Representative: Kanika Lozada MD #### GLYHGB #### [address] [place], [place] 0837008 Account Representative: Amador Awan MD Creatinine [Mass/Vol] 0.8 mg/dL Normal 0.5-0.9 [facility] Comment on above: Performed By: #### C P, CBC #### [address] [place] [address] Account Representative: Kanika Lozada MD #### GLYHGB #### [address] [place], [place] 2334008 Account Representative: Amador Awan MD GFR/1.73 sq M.predicted among non-blacks MDRD (S/P/Bld) [Vol rate/Area] mL/min/{1.73_m2} Normal >60 [facility] Comment on above: Result Comment: These [...] Performed By: #### C P, CBC #### [facility] [address] [place] [phone] Account Representative: Kanika Lozada MD #### GLYHGB #### [address] [place], [place] 1104908 Account Representative: Amador Awan MD Glucose [Mass/Vol] 84 mg/dL Normal 70-99 [facility] Comment on above: Performed By: #### C P, CBC #### [address] [place], [place] [phone] Account Representative: Kanika Lozada MD #### GLYHGB #### [address] [id number] Account Representative: Amador Awan MD Potassium [Moles/Vol] 4.5 mmol/L Normal 3.7-5.3 [facility] Comment on above: Performed By: #### C P, CBC #### [address] [place] [phone] Account Representative: Kanika Lozada MD #### GLYHGB #### [address] [address] Account Representative: Amador Awan MD Protein [Mass/Vol] 7.1 g/dL Normal 6.4-8.3 [facility] Comment on above: Performed By: #### C P, CBC #### [address] [place], [place] 1604783 Account Representative: Kanika Lozada MD #### GLYHGB #### [address] [address] Account Representative: Amador Awan MD Sodium [Moles/Vol] 138 mmol/L Normal 135-144 [facility] Comment on above: Performed By: #### C P, CBC #### [address] [place], [place] 2936183 Account Representative: Kanika Lozada MD #### GLYHGB #### [address] [place] [address] Account Representative: Amador wAan MD Urea nitrogen [Mass/Vol] 17 mg/dL Normal 6-20 [facility] Comment on above: Performed By: #### C P, CBC #### [facility] [address] [place] [address] [place]. [place], [place] [phone] Account Representative: Kanika Lozada MD #### GLYHGB #### [address] [address] Account Representative: Amador Awan MD Hemoglobin A1Con 03-25-2024 Glucose [Mass/Vol] 103 mg/dL Normal [facility] Comment on above: Result Comment: The ADA and AACC recommend providing the estimated average glucose result to permit better patient understanding of their HBA1c result. Performed By: #### C P, CBC #### [facility] [address] [place] [address] [place]. [place], [place] 5341983 Account Representative: Kanika Lozada MD #### GLYHGB #### [address] [address] Account Representative: Amador Awan MD HbA1c (Bld) [Mass fraction] 5.2 % Normal 4.0-6.0 [facility] Comment on above: Performed By: #### C P, CBC #### [facility] [address] [place] [address] [place]. [place], [place] [phone] Account Representative: Kanika Lozada MD #### GLYHGB #### [address] [address] Account Representative: Amador Awan MD Lipid Profileon 03-25-2024 Cholesterol [Mass/Vol] 205 mg/dL High 0-199 [facility] Comment on above: Result Comment: Cholesterol Guidelines: <200 Desirable 200-240 Borderline >240 Undesirable Performed By: #### L IPR #### [address] [address] Account Representative: Amador Awan MD Cholesterol in HDL [Mass/Vol] 51 mg/dL Normal >40 [facility] Comment on above: Result Comment: HDL Guidelines: <40 Undesirable 40-59 Borderline >59 Desirable Performed By: #### L IPR #### [address] [address] Account Representative: Amador Awan MD Cholesterol in LDL [Mass/Vol] 138 mg/dL High 0-100 [facility] Comment on above: Result Comment: LDL Guidelines: <100 Desirable 100-129 Near to/above Desirable 130-159 Borderline >159 Undesirable Direct (measured) LDL and calculated LDL are not interchangeable tests. Performed By: #### L IPR #### [address] [address] Account Representative: Amador Awan MD Cholesterol in VLDL [Mass/Vol] 16 mg/dL Normal [facility] Comment on above: Performed By: #### L IPR #### [address] [address] Account Representative: Amador Awan MD Cholesterol.total/Chol esterol in HDL [Mass ratio] 4.0 {ratio} Normal [facility] Comment on above: Performed By: #### L IPR #### [address] [address] Account Representative: Amador Awan MD Triglyceride [Mass/Vol] 80 mg/dL Normal <150 [facility] Comment on above: Result Comment: Triglyceride Guidelines: <150 Desirable 150-199 Borderline 200-499 High >499 Very high Based on AHA Guidelines for fasting triglyceride, July 2012. Performed By: #### L IPR #### [address] [address] Account Representative: Amador Awan MD TSH w/reflex to FT4on 2023 Thyroid Stim. Horm. 3.95 uIU/mL Normal 0.30-5.00 [facility] Comment on above: Performed By: #### G ELIZABETH STLPCR #### [address] [place] [address] Account Representative: Amador Awan MD [facility] [address] [place] [address] [place] [address] Account Representative: Kanika Lozada MD Fecal Panc Elastaseon 2023 Pancreatic Elastase >800 Normal >=100 [facility] Comment on above: Result Comment: (NOT E) REFERENCE INTERVAL: Pancreatic Elastase Fecal by Immunoassay Less than 100 ug/g............Severe insufficiency 100 - 199 ug/g................Moderate insufficiency 200 ug/g or greater...........Normal INTERPRETIVE INFORMATION: Pancreatic Elastase Fecal by Immunoassay Reference intervals do not apply for infants less than one month old. Performed By: [facility] [address] [place] [id number] [employer] Boss: Hieu Hurley MD, PhD CLIA Number: [id number] Performed By: #### G CAG, STLPCR #### [address] [address] Account Representative: Amador Awan MD [facility] [address] [place] [address] [place] [address] Account Representative: Kanika Lozada MD Giardia/Cryptosp Agon 2023 Cryptosporidium Ag Negative Normal NEG [facility] Comment on above: Result Comment: Cryp tosporidium Antigen Assay Performed By: #### G CAG, STLPCR #### [address] [address] Account Representative: Amador Awan MD [facility] [address] [place] [address] [place] [address] Account Representative: Kanika Lozada MD O+P,Giardia Ag Negative Normal NEG [facility] Comment on above: Result Comment: Giar taylor Antigen Assay Performed By: #### G ELIZABETH, STLPCR #### [address] [address] Account Representative: Amador Awan MD [facility] [address] [place] [address] Account Representative: aKnika Lozada MD H. pylori Antigenon 02-11-20 24 H. pylori Antigen Specimen Description .FECES Direct Exam NEGATIVE Report Status FINAL 02/11/2024 Normal [facility] Comment on above: Performed By: #### F HPY #### [address] [address] Account Representative: Amador Awan MD [facility] [address] [place] [address] Account Representative: Kanika Lozada MD Stool PCR [place] 02-11-20 24 Campylobacter sp PCR NEGATIVE: No Campylobacter spp. (jejuni or coli) DNA Detected Normal [facility] Comment on above: Performed By: #### G CAG, STLPCR #### [address] [address] Account Representative: Amador Awan MD [facility] [address] [place] [address] Account Representative: Kanika Lozada MD E coli enterotox PCR NEGATIVE: No Enterotoxigenic E. coli (ETEC) Heat-labile and heat-stable (LT/ST) Normal EECNEG [facility] Comment on above: Result Comment: DNA Detected Performed By: #### G CAG, STLPCR #### [address] [address] Account Representative: Amador Awan MD [facility] [address] [place] [address] Account Representative: Kanika Lozada MD Plesiomonas sp PCR Negative [facility] Comment on above: Performed By: #### G CAG, STLPCR #### [address] [address] Account Representative: Amador Awan MD [facility] [address] [place] [address] Account Representative: Kanika Lozada MD Salmonella sp [facility] Comment on above: Performed By: #### G CAG, STLPCR #### [facility] [address] [place] [address] Account Representative: Amador Awan MD [facility] [address] [place] [address] Account Representative: Kanika Lozada MD Shigatoxin gene PCR Negative Normal STXNEG [facility] Comment on above: Performed By: #### G CAG, STLPCR #### [facility] [address] [place] [address] Account Representative: Amador Awan MD [facility] [address] [place] [address] [place] [address] Account Representative: Kanika Lozada MD Shigella sp PCR Negative Normal [facility] Comment on above: Performed By: #### G CAG, STLPCR #### [facility] [address] [place] [address] Account Representative: Amador Awan MD [facility] [address] [place] [address] [place] [address] Account Representative: Kanika Lozada MD Vibrio sp PCR NEGATIVE: No Vibrio (V. vulnificus, V, parahaemolyticus and V. cholerae) DNA Normal [facility] Comment on above: Result Comment: Dete cted Performed By: #### G CAG, STLPCR #### [facility] [address] [place] [address] Account Representative: Amador Awan MD [facility] [address] [place] [address] [place] [address] Account Representative: Kanika Lozada MD Yersinia gene PCR Negative [place] [facility]NE[facility] Comment on above: Performed By: #### G CAG, STLPCR #### [facility] [address] [place] [address] Account Representative: Amador Awan MD [facility] [address] [place], [place] 5203583 Account Representative: Kanika Lozada MD Giardia/Cryptosp Agon 2023 Source .FECES Normal [facility] Comment on above: Performed By: #### G CAG, STLPCR #### [facility] [address] [place] [address] Account Representative: Amador Awan MD [facility] [address] [place] [id number] Account Representative: Kanika Lozada MD Specimen Rejectionon 024 Reason for rejection Unable to perform testing: Formed stool is not consistent with suspected Normal [facility] Comment on above: Result Comment: diag nosis. Performed By: #### R EJEC #### [facility] [address] [place] [address] [place], [place] [phone] Account Representative: Kanika Lozada MD Source of sample STOOL Normal [facility] Comment on above: Performed By: #### R EJEC #### [facility] [address] [place] [address] [place], [place] [phone] Account Representative: Kanika Lozada MD Test ordered CDIFQ Normal [facility] Comment on above: Performed By: #### R EJEC #### [facility] [address] [place] [address] [place], [place] [phone] Account Representative: Kanika Lozada MD Stool PCR [place] 02-10-20 24 Specimen Description .FECES Normal [facility] Comment on above: Performed By: #### G CAG, STLPCR #### [facility] [address] [place] [address] Account Representative: Amador Awan MD [facility] [address] [place] [id number] Account Representative: Kanika Lozada MD TSH w/reflex to FT4on 2022 Thyroid Stim. Horm. 6.56 uIU/mL High 0.30-5.00 [facility] Comment on above: Performed By: #### F T4 #### [facility] [address] [place], [place] 4252908 Account Representative: Amador Awan MD #### TSHX #### [facility] [address] [address] Account Representative: Kanika Lozada MD Thyroxine, Freeon 05-24-2023 Thyroxine, Free 1.0 ng/dL Normal 0.9-1.7 [facility] Comment on above: Performed By: #### F T4 #### [address] [place], [place] 2693508 Account Representative: Amador Awan MD #### TSHX #### [facility] [address] [address] Account Representative: Kanika Lozada MD THYROIDon 02-09-2023 Heterogeneous, hypervascular thyroid parenchyma with mild enlargement of the right thyroid lobe, findings that could be seen with thyroiditis or Graves disease. [facility] EXAMINATION: THYROID ULTRASOUND 02/08/2023 4:58 pm COMPARISON: None HISTORY: ORDERING SYSTEM PROVIDED HISTORY: Arcelia's disease TECHNOLOGIST PROVIDED HISTORY: This procedure can be scheduled via [employer]. Access your [employer] account by visiting [email or web address]. FINDINGS: Right thyroid lobe: 6.0 cm x 3.0 cm x 2.0 cm Left thyroid lobe: 4.4 cm x 1.5 cm x 1.8 cm Isthmus: 0.2 cm THYROID GLAND: Mild enlargement of the right lobe with otherwise normal size. Moderately heterogeneous echogenicity and echotexture. Markedly increased vascularity. NODULES: None visualized. CERVICAL LYMPHADENOPATHY: None visualized. [facility] Saran Baez MD - 02/09/2023 EXAMINATION: THYROID ULTRASOUND 02/08/2023 4:58 pm COMPARISON: None HISTORY: ORDERING SYSTEM PROVIDED HISTORY: Arcelia's disease TECHNOLOGIST PROVIDED HISTORY: This procedure can be scheduled via [employer]. Access your [employer] account by visiting [email or web address]. FINDINGS: Right thyroid lobe: 6.0 cm x [...] be seen with thyroiditis or Graves disease. [employer] Phone: US THYROIDOrdered By: Samra Baez on 02-09-2023 [employer] Phone: US THYROIDon 02-08-2023 Radiology Study observation (narrative) [employer] Phone: T4, Freeon 01-18-2023 Free T4 [Mass/Vol] 0.98 ng/dL 0.93 - 1. 70 ng/dL [employer] TSHon 01-17-2023 TSH Qn 4.70 m[IU]/L [employer] XR finger LT 3rd digiton XR finger LT 3rd digit [facility] [place] [address] XRay Report Signed Patient: Giulia Blackwell MR#: [id number] : 1980 Acct:[id number] Age/Sex: 42 / F ADM Date: 01/04/23 Loc: XDUCLY Room: Type: [facility] Attending Dr: Shanel PAULA Copies to: NISA [...] Primo Gregory M.D.01/04/2023 5:51 PM Dictation Location: [facility]- Transcribed By: [facility] 01/04/231750 Dictated By: Primo Gregory II, MD 01/04/231749 Signed By: 01/04/231750 [facility] XR finger LT 3rd digit [facility] [employer] Other XR finger LT 3rd digit [facility] [employer] Other XR finger LT 3rd digit [address] [facility] [employer] Other XR finger LT 3rd digit [place] [id number] [employer] Other XR finger LT 3rd digit XRay Report N [facility] [employer] Other XR finger LT 3rd digit Signed No rt [employer] Other XR finger LT 3rd digit Patient: Giulia Blackwell MR#: [id number] [employer] Other XR finger LT 3rd digit : 1980 Acct:[id number] [employer] [place] Other XR finger LT 3rd digit Age/Sex: 42 / F A DM Date: 01/04/23 [employer] [place] Other XR finger LT 3rd digit Loc: XDUCLY Room: Type: [facility] [employer] Other XR finger LT 3rd digit Attending Dr: Ana María PAULA [employer] [place] Other XR finger LT 3rd digit Copies to: NISA Callahan [employer] [place] Other XR finger LT 3rd digit Ordering Provider : NISA Callahan [employer] [place] Other XR finger LT 3rd digit Date of Service: 01/04/23 [employer] [place] Other XR finger LT 3rd digit XR/XR finger LT 3rd digit: M79.645 [employer] [place] Other XR finger LT 3rd digit XR finger LT 3rd digit 01/04/2023 5:35 PM [employer] [place] Other XR finger LT 3rd digit SIGNS AND SYMPTOM S: Injury to left third digit with flexion deformity [employer] [place] Other XR finger LT 3rd digit PROTOCOL: Frontal , lateral, and oblique radiographs of the left third digit [employer] [place] Other XR finger LT 3rd digit COMPARISON: None [employer] [place] Other XR finger LT 3rd digit FINDINGS: No rt [employer] Other XR finger LT 3rd digit There is no evide nce of fracture. No dislocation or subluxation. There is a focus flexion deformity [employer] [place] Other XR finger LT 3rd digit suspicious for tendon injury at the distal interphalangeal joint of the third digit. No accompanying [employer] [place] Other XR finger LT 3rd digit soft tissue swelling. [employer] [place] Other XR finger LT 3rd digit 8 XR/XR finger LT 3rd digit [employer] [place] Other XR finger LT 3rd digit IMPRESSION: N [employer] Other XR finger LT 3rd digit There is no evide nce of fracture. [employer] [place] Other XR finger LT 3rd digit There is a focus flexion deformity suspicious for tendon injury at the distal interphalangeal joint [employer] [place] Other XR finger LT 3rd digit of the third digit. [employer] [place] Other XR finger LT 3rd digit Impression dictat ed by: Primo Gregory M.D.01/04/2023 5:51 PM [employer] [place] Other XR finger LT 3rd digit Dictation Locatio n: [id number] [employer] [place] Other XR finger LT 3rd digit Transcribed By: Mervin KHAN 01/04/23 [facility] [employer] [place] Other XR finger LT 3rd digit Dictated By: Primo Gregory II, MD 01/04/23 [facility] [employer] [place] Other XR finger LT 3rd digit Signed By: No rt [employer] Other XR finger LT 3rd digit 01/04/23 [facility] [employer] [place] Other Blood Occult Stool #1on 11-23 Date, Stool #1 [id number] HARLEIGH S [facility] Hemoglobin.gastrointes tinal spec 1 Ql (Stl) Negative NEGATIVE HARLEIGH S [facility] Time, Stool #1 [facility] C-Reactive Proteinon 023 CRP High sensitivity method [Mass/Vol] 3.6 mg/L 0.0 - 5.0 mg/L [facility] [email or web address] [facility] CBC with Auto Differentialon 12-09-2022 Absolute Eos # 0.11 [facility] [email or web address] Absolute Immature Granulocyte [facility] Absolute Lymph # 2.15 [facility] Absolute Hardy # 0.47 [facility] Basophils (Bld) [#/Vol] 0.05 10*3/uL [facility] Basophils/100 WBC (Bld) 1 % 0 - 2 % [facility] Eosinophils/100 WBC (Bld) 2 % 1 - 4 % [facility] Hematocrit (Bld) [Volume fraction] 35.4 % Low 36.3 - 47.1 % [facility] Hemoglobin (Bld) [Mass/Vol] 12.0 g/dL 11.9 - 15.1 g/dL [facility] Immature granulocytes/100 WBC (Bld) 0 % 0 [facility] Interpretation and review of laboratory results Abnormal [facility] Lymphocytes/100 WBC (Bld) 33 % 24 - 43 % [facility] MCH (RBC) [Entitic mass] 31.7 pg 25.2 - 33.5 pg [facility] MCHC (RBC) [Mass/Vol] 33.9 g/dL 28.4 - 34.8 g/dL [facility] MCV (RBC) [Entitic vol] 93.7 fL 82.6 - 102.9 fL [facility] Monocytes/100 WBC (Bld) 7 % 3 - 12 % [facility] NRBC Automated 0.0 0.0 per 100 WBC [facility] Platelet distribution width (Bld) [Ratio] 12.0 % 11.8 - 14.4 % [facility] Platelet mean volume (Bld) [Entitic vol] 8.6 fL 8.1 - 13.5 fL [facility] Platelets (Bld) [#/Vol] 321 10*3/uL [facility] RBC (Bld) [#/Vol] 3.78 10*6/uL Low 3.95 - 5.1 1 m/uL [facility] Segmented neutrophils/100 WBC (Bld) 57 % 36 - 65 % [facility] Segs Absolute 3.68 [facility] WBC (Bld) [#/Vol] 6.5 10*3/uL [facility] Comprehensive Metabolic Pane cesar 12-09-2022 Albumin [Mass/Vol] 4.5 g/dL 3.5 - 5.2 g/dL [facility] Albumin/Globulin [Mass ratio] 1.7 {ratio} 1.0 - 2.5 [facility] ALP [Catalytic activity/Vol] 72 U/L 35 - 104 U/L [facility] ALT [Catalytic activity/Vol] 16 U/L 5 - 33 U/L [facility] Anion gap [Moles/Vol] 8 mmol/L Low 9 - 17 mmol/L [facility] AST [Catalytic activity/Vol] 19 U/L NINF - 32 U/L [facility] Bilirubin [Mass/Vol] mg/dL Low 0.3 - 1 .2 mg/dL [facility] Calcium [Mass/Vol] 9.3 mg/dL 8.6 - 10. 4 mg/dL [facility] Chloride [Moles/Vol] 99 mmol/L 98 - 10 7 mmol/L [facility] CO2 [Moles/Vol] 28 mmol/L 20 - 31 mmol/L [facility] Creatinine [Mass/Vol] 0.76 mg/dL 0.50 - 0.90 mg/dL [facility] GFR/1.73 sq M.predicted MDRD (S/P/Bld) [Vol rate/Area] - PINF [facility] Comment on above: These results are [...] [Mass/Vol] 84 mg/dL 70 - 99 mg/dL [facility] Interpretation and review of laboratory results Abnormal [facility] Potassium [Moles/Vol] 4.0 mmol/L 3.7 - 5.3 mmol/L [facility] Protein [Mass/Vol] 7.2 g/dL 6.4 - 8.3 g/dL [facility] Sodium [Moles/Vol] 135 mmol/L 135 - 144 mmol/L [facility] Urea nitrogen [Mass/Vol] 15 mg/dL 6 - 20 mg/dL [facility] Urea nitrogen/Creatinine (Bld) [Mass ratio] 20 9 - 20 [facility] Sedimentation Rateon 02-17-2 023 ESR (Bld) [Velocity] 6 mm/h [facility] T3, Freeon 12-09-2022 Free T3 [Mass/Vol] 2.36 pg/mL 2.02 - 4. 43 pg/mL [facility] T4, Freeon 12-09-2022 Free T4 [Mass/Vol] 0.70 ng/dL Low 0.93 - 1. 70 ng/dL [facility] Interpretation and review of laboratory results Abnormal [facility] TSHon 12-09-2022 Interpretation and review of laboratory results Abnormal [facility] TSH Qn 21.12 m[IU]/L High [facility] MG MAMM SCREEN 3D LEIF CADon 06-23-2022 MG MAMM SCREEN 3D LEIF CAD Patient: GIULIA BLACKWELL Exam Date: 06/23/2022 : 1980 Gender:F Ordering : DR RANDAL BLOUNT . Admission #: [id number] Family : Order #: [id number] CLICK HERE TO VIEW EXAM RADIOLOGY REPORT PROCEDURE: MAMMOGRAM SCREENING 3D BILATERAL CAD COMPARISON: MG MAMM SCREEN 3D LEIF CAD, 06/24/2021. INDICATIONS: Screening mammography Calculator Name NCI Breast Cancer Risk Assessment Tool 5 Year Breast Cancer Risk 0.80% Lifetime Breast Cancer Risk 12.40% Personal Breast Cancer No Personal Ovarian Cancer No Treatments None Family Cancers None LOCATION: [facility] BREAST COMPOSITION: Extremely dense, which lowers the [...] Cochran MD on 06/24/2022 at 08:[address] [facility] PAP ACOG PANEL 2: 30 to 65on 06-06-2022 . . Normal [facility] Comment on above: Result Comment: Perf ormed at: WB Performed By: #### [id number] #### [facility] [address] [place] [address] Dr. Pk Cat Age Gdln ACOG Testing 30-65 [facility] Comment on above: Performed By: #### [id number] #### [facility] [address] [place] [address] Dr. Pk Cat DIAGNOSIS: Comment Normal [facility] Comment on above: Result Comment: NEGA TIVE FOR INTRAEPITHELIAL LESION OR MALIGNANCY. Performed at: WB Performed By: #### [id number] #### [facility] [address] [place] [address] Dr. Pk Cat HPV Aptima Negative Normal [facility] Comment on above: Result Comment: This nucleic acid amplification test detects fourteen high-risk HPV types (16,18,31,33,35,39,45,51,52,56,58,59,66,68) without differentiation. Performed at: =G Performed By: #### [id number] #### [facility] [address] [place] [address] Dr. Pk Cat Methodology: Comment [facility] Comment on above: Result Comment: This liquid based ThinPrep(R) pap test was screened with the use of an image guided system. Performed at: WB Performed By: #### [id number] #### [facility] [address] [place] [address] Dr. Pk Cat Note: Comment Normal [facility] Comment on above: Result Comment: The Pap smear is a screening test designed to aid in the detection of premalignant and malignant conditions of the uterine cervix. It is not a diagnostic procedure and should not be used as the sole means of detecting cervical cancer. Both false-positive and false-negative reports do occur. . Performed at: WB Performed By: #### [id number] #### [facility] [address] [place] [address] Dr. Pk Cat Performed by: Comment Normal [facility] Comment on above: Result Comment: Kailey Conde Career Discovery Teacher (ASCP) Performed at: WB Performed By: #### [id number] #### [facility] [address] [address] [address] Pk Cat Specimen adequacy: Comment Normal [facility] Comment on above: Result Comment: Sati sfactory for evaluation. Endocervical and/or squamous metaplastic cells (endocervical component) are present. Performed at: WB Performed By: #### [id number] #### [facility] [address] [address] [address] Pk Cat XR CERVICAL SPINE (2-3 VIEWS )on 05-05-2022 Normal exam [facility] EXAMINATION: XRAY VIEWS OF THE CERVICAL SPINE 05/05/2022 10:04 am COMPARISON: None. HISTORY: ORDERING SYSTEM PROVIDED HISTORY: Numbness and tingling in right hand FINDINGS: Cervical spine alignment is anatomic. No acute osseous abnormality. No significant degenerative change. Prevertebral soft tissues unremarkable. [facility] Gilmer Menendez DO - 05/05/2022 EXAMINATION: XRAY VIEWS OF THE CERVICAL SPINE 05/05/2022 10:04 am COMPARISON: None. HISTORY: ORDERING SYSTEM PROVIDED HISTORY: Numbness and tingling in right hand FINDINGS: Cervical spine alignment is anatomic. No acute osseous abnormality. No significant degenerative change. Prevertebral soft tissues unremarkable. IMPRESSION: Normal exam [employer] Phone: Radiology Study observation (narrative) [employer] Phone: XR CERVICAL SPINE (2-3 VIEWS )Ordered By: Gilmer Menendez on 05-05-2022 [employer] Phone: ALTOrdered By: Yasmin Thompson on 03-31-2021 ALT [Catalytic activity/Vol] 13 U/L 5 - 33 U/L [employer] Phone: ASTOrdered By: Yasmin Thompson on 03-31-2021 AST [Catalytic activity/Vol] 17 U/L <32 [employer] Phone: Basic Metabolic PanelOrdered By: Yasmin Thompson on 03-31-2021 Anion gap [Moles/Vol] 6 mmol/L Low 9 - 17 mmol/L [employer] Phone: Calcium [Mass/Vol] 9.5 mg/dL 8.6 - 10. 4 mg/dL [employer] Phone: Chloride [Moles/Vol] 105 mmol/L 98 - 10 7 mmol/L [employer] Phone: CO2 [Moles/Vol] 27 mmol/L 20 - 31 mmol/L [employer] Phone: Creatinine [Mass/Vol] 0.76 mg/dL 0.50 - 0.90 mg/dL [employer] Phone: GFR >60 >60 mL/min [employer] Phone: GFR Non- >60 >60 mL/min [employer] Phone: Glucose [Mass/Vol] 89 mg/dL 70 - 99 mg/dL [facility] [employer] Phone: Interpretation and review of laboratory results Abnormal [employer] Phone: Potassium [Moles/Vol] 4.4 mmol/L 3.7 - 5.3 mmol/L [employer] Phone: Sodium [Moles/Vol] 138 mmol/L 135 - 144 mmol/L [employer] Phone: Urea nitrogen (BldV) [Mass/Vol] 20 mg/dL 6 - 20 mg/dL [employer] Phone: Urea nitrogen/Creatinine (Bld) [Mass ratio] 26 High [employer] Phone: CBCOrdered By: Yasmin Thompson on 03-31-2021 Hematocrit (Bld) [Volume fraction] 38.8 % 36.3 - 47.1 % [employer] Phone: Hemoglobin.gastrointes tinal spec 1 Ql (Stl) 12.8 g/dL 11.9 - 15.1 g/dL [employer] Phone: Interpretation and review of laboratory results Abnormal [employer] Phone: MCH (RBC) [Entitic mass] 30.8 pg 25.2 - 33.5 pg [employer] Phone: MCHC (RBC) [Mass/Vol] 33.0 g/dL 28.4 - 34.8 g/dL [employer] Phone: MCV (RBC) [Entitic vol] 93.3 fL 82.6 - 102.9 fL [employer] Phone: NRBC Automated 0.0 0.0 per 100 WBC [employer] Phone: Platelet distribution width (Bld) [Ratio] 11.7 % Low 11.8 - 14.4 % [employer] Phone: Platelet mean volume (Bld) [Entitic vol] 8.9 fL 8.1 - 13.5 fL [employer] Phone: Platelets (Bld) [#/Vol] 299 10*3/uL [employer] Phone: RBC (Bld) [#/Vol] 4.16 10*6/uL 3.95 - 5.1 1 m/uL [employer] Phone: WBC (Bld) [#/Vol] 6.0 10*3/uL [employer] Phone: [employer] Phone: Laboratory - Chemistry and C hemistry - challengeOrdered By: Yasmin Thompson on 03-31-2021 GFR/1.73 sq M.predicted MDRD (S/P/Bld) [Vol rate/Area] [employer] Phone: Comment on above: Average GFR for 40-4 9 years old: 99 mL/min/1.73sq m Chronic Kidney Disease: <60 mL/min/1.73sq m Kidney failure: <15 mL/min/1.73sq m eGFR calculated using average adult body mass. Additional eGFR calculator available at: http://www.[employer]/multiple_crcl_2012.htm Stage 1: Some kidney damage normal GFR Stage 2: Mild kidney damage GFR 60-89 Stage 3: Moderate kidney damage GFR 30-59 Stage 4: Severe kidney damage GFR 15-29 Stage 5: Severe kidney damage GFR <15 ESRD - chronic treatment by dialysis or transplant Lipid PanelOrdered By: Ivelisse Thompson on 03-31-2021 Cholesterol [Mass/Vol] 168 mg/dL <200 [employer] Phone: Comment on above: Cholesterol Guidelines: <200 Desirable 200-240 Borderline >240 Undesirable Cholesterol in HDL [Mass/Vol] 52 mg/dL >40 [employer] Phone: Comment on above: HDL Guidelines: <40 Undesirable 40-59 Borderline >59 Desirable Cholesterol in LDL [Mass/Vol] 80 mg/dL 0 - 130 mg/dL [employer] Phone: Comment on above: LDL Guidelines: <100 Desirable 100-129 Near to/above Desirable 130-159 Borderline >159 Undesirable Direct (measured) LDL and calculated LDL are not interchangeable tests. Cholesterol in VLDL [Mass/Vol] NOT REPORTED High 1 - 30 mg/dL [employer] Phone: Cholesterol.total/Chol esterol in HDL [Mass ratio] 3.2 {ratio} <5 [employer] Phone: Interpretation and review of laboratory results Abnormal [employer] Phone: Triglyceride [Mass/Vol] 179 mg/dL High <150 [employer] Phone: Comment on above: Triglyceride Guidelines: <150 Desirable 150-199 Borderline 200-499 High >499 Very high Based on AHA Guidelines for fasting triglyceride, July 2012. [employer] Phone: No Panel InformationOrdered By: Yasmin Thompson on 03-31-2021 [employer] Phone: TSH without ReflexOrdered By : Yasmin Thompson on 03-31-2021 TSH Qn 4.48 m[IU]/L [employer] Work Phone: [employer] Work Phone: PROGRESSon 12-14-2019 PROGRESS HNO ID: [id number] Author: Kailey Daniel Service: ? Author Type: Nurse Practitioner Type: Progress Notes Filed: 12/14/2019 9:58 AM Note Text: Telemedicine Visit - Distance Health Virtual Visit Note Patient seen on [employer] Online platform. Location of patient: [place] History of Present Illness Giulia Blackwell is [...] in providing you the best care. Normal [facility] PROGRESSon 10-24-2019 PROGRESS HNO ID: [id number] Author: Kailey Daniel Service: ? Author Type: [...] normal sclera Left: Conjunctival injection ASSESSMENT/PLAN: 1. [place] eye disease of left eye - ICD9: [...] in providing you the best care. Normal [facility] PROGRESSon 01-09-2019 PROGRESS HNO ID: [id number] Author: Phill Sommers Service: ? Author Type: [...] strep:No Sick contacts: no Recent travel: Yes [place] (12/28-01/02) symptoms began on vacation OTC meds/remedies [...] 875 MG-POTASSIUM CLAVULANATE 125 MG TABLET - [place] nasal spray as directed - Add Flonase [...] sprays and irrigation kits can be purchased [id number]. Saline mixes can also be purchased or [...] congestion, such as oral antihistamines (such as diphenhydramine/Morgan dryl?) or zinc supplements are not proven [...] recommended, depending upon your individual situation. Normal [facility] Vital Signs Date Time Vital Sign Value Performing Clinician Facility 01-04-2023 18:15-0400 Body height 162.56 cm Shanel Ventura Other [employer] Other 01-04-2023 18:15-0400 Body mass index (BMI) [Ratio] 29.18 kg/m2 Shanel Audrey Other [employer] Other 01-04-2023 18:15-0400 Body weight 77.11 kg Shanel Ventura Other [employer] [place] Other 01-04-2023 18:15-0400 Diastolic blood pressure 64 mm[Hg] Shanel Ventura Other [employer] [place] Other 01-04-2023 18:15-0400 Respiratory rate 18 /min Shanelkassy Ventura Other [employer] Other 01-04-2023 18:15-0400 SaO2% (BldA) [Mass fraction] 97 % Shanel Ventura Other [employer] Other 01-04-2023 18:15-0400 Systolic blood pressure 130 mm[Hg] Shanel Ventura Other [employer] Other Encounters Encounter Date Encounter Type Care Provider Facility Start: 03-28-2024 End: 03-28-2024 ambulatory SHELBY VEGA [facility] Start: 03-25-2024 End: 03-25-2024 ambulatory YASMIN THOMPSON [facility] Start: 03-25-2024 Encounter for nona l adult medical examination without abnormal findings UNION STAR THOMPSON [facility] Start: 02-10-2024 End: 02-10-2024 ambulatory JASWANT GILES [facility] Start: 02-10-2024 End: 02-10-2024 Subsequent hospital visit by physician Yasmin Sun CNP Work Phone: 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 Laboratory Comment on above: Hypothyroidism, unsp ecified type Start: 01-04-2023 End: 01-04-2023 ambulatory Shanel Ventura Facility:[facility] Start: 01-04-2023 End: 01-04-2023 Patient encounter procedure PAPER CONE MAKER-C Shanel Ventura Work Phone: [facility] Work Phone: Start: 01-04-2023 End: 01-04-2023 ambulatory PAPER CONE MAKER-C Shanel Ventura Work Phone: [facility] Work Phone: Start: 01-04-2023 Office outpatient vi sit 15 minutes Shanel Ventura [facility] Start: 12-11-2022 End: 12-11-2022 Subsequent hospital visit by physician Yasmin Thompson APRN - TRAINS DISPATCHER SUPERVISOR Work Phone: [facility] Comment on above: Abdominal bloating; Loose stools Start: 12-09-2022 End: 12-09-2022 Subsequent hospital visit by physician Yasmin Thompson APRN - TRAINS DISPATCHER SUPERVISOR Work Phone: [facility] Laboratory Comment on above: Elevated glucose; Abdominal bloating; Loose stools Start: 06-23-2022 End: 06-24-[address] RANDAL BLOUNT Facility:[facility] Start: 05-31-2022 End: 05-31-[address] RANDAL BLOUNT Facility:[facility] Start: 05-05-2022 End: 05-07-2022 Patient encounter status [address] Radiology Start: 05-05-2022 End: 05-07-2022 Subsequent hospital visit by physician [address] Radiology Comment on above: Numbness and tinglin g in right hand; Wellness examination Start: 03-31-2021 End: 03-31-2021 Patient encounter status Yeison Spencer MD Work Phone: [facility] Laboratory Start: 03-31-2021 End: 03-31-2021 Subsequent hospital visit by physician Yeison Spencer MD Work Phone: [facility] EKG Comment on above: Chest pain, unspecif ied type Wellness examination ; Lipid screening; Diabetes mellitus screening Start: 03-27-2017 End: 04-18-2019 Patient encounter status Yeison Spencer MD Work Phone: [facility] Procedures Date Procedure Procedure Detail Performing Clinician Start: 02-08-2023 Us soft tissue head & neck real time imge docm Yasmin Thompson APRN - TRAINS DISPATCHER SUPERVISOR Work Phone: Start: 01-17-2023 Assay of free thyroxine Yasmin Thompson APRN - TRAINS DISPATCHER SUPERVISOR Work Phone: Start: 01-04-2023 X-ray of middle finger PAPER CONE MAKER-C Shanel Audrey Work Phone: Start: 12-11-2022 Blood occult peroxid ase actv qual feces 1 deter Yasmin Myers Jay NURSE OUTREACH CASE MANAGER [employer] Work Phone: Start: 12-09-2022 C-reactive protein Keri Myers Jay NURSE OUTREACH CASE MANAGER [employer] Work Phone: Start: 12-09-2022 Comprehensive metabo lic panel Yasminarlen Thompson NURSE OUTREACH CASE MANAGER [employer] Work Phone: Start: 05-05-2022 Radex spine cervical 2 or 3 views Yasminarlen Thompson NURSE OUTREACH CASE MANAGER [employer] Work Phone: Start: 06-14-2021 Microscopic observat ion [Identifier] in Cervix by Cyto stain Yasminderrick Thompson NURSE OUTREACH CASE MANAGER [employer] Work Phone: Start: 03-31-2021 Ecg routine ecg w/le ast 12 lds w/i&r Yasmin Thompson NURSE OUTREACH CASE MANAGER [employer] Work Phone: Start: 03-31-2021 Basic metabolic pane l calcium total Yasminarlen Thompson NURSE OUTREACH CASE MANAGER [employer] Work Phone: Start: 03-31-2021 Lipid panel Yasminderrick ramírez [employer] Work Phone: Plan of Treatment Date Care Activity Detail Author Start: 05-04-2032 DTaP/Tdap/Td vaccine (2 - Td or Tdap) DTaP/Tdap/Td vaccine (2 - Td or Tdap) [facility] Start: 05-05-2027 Lipid panel Lipids [facility] [employer] Start: 12-01-2024 Depression Monitoring [facility] Start: 07-18-2024 End: 07-18-2024 Admission to same day surgery center 07/18/2024 12:05 PM EDT - 07/18/2024 12:50 PM EDT Surgery [facility] [address] [place] [id number] Evelyn Gonzalez MD [address] [place] [phone] COLORECTAL CANCER SCREENING, NOT HIGH RISK [facility] OR Comment on above: COLORECTAL CANCER SC REENING, NOT HIGH RISK Start: 07-18-2024 End: 07-18-2024 Colon ca scrn not hi rsk ind COLORECTAL CANCER SCREENING, NOT HIGH RISK Screening for colon cancer 07/18/2024 12:05 PM EDT [facility] Start: 07-18-2024 Subsequent hospital visit by physician 07/18/2024 12:05 PM EDT Hospital Encounter [facility] OR [address] [id number] Evelyn Gonzalez MD [address] [place] [id number] [facility] OR Start: 06-14-2024 Screening for malign ant neoplasm of cervix [facility] Start: 05-29-2024 End: 05-29-2024 Patient encounter procedure 05/29/2024 3:20 PM EDT Office Visit [facility] [address] [place] [address] [address] [place] [address] Yasmin Thompson, NURSE OUTREACH CASE MANAGER - TRAINS DISPATCHER SUPERVISOR [address] [facility] [address] [place] [address] Wellness [facility] Comment on above: Wellness Start: 05-23-2024 Influenza vaccination Flu vacc ine (Season Ended) [facility] Start: 11-04-2023 [facility] Start: 07-07-2023 Lipid panel Lipid screen [facility] [employer] Phone: Start: 06-23-2023 COVID-19 Vaccine ( season) COVID-19 Vaccine ( season) [facility] Start: 05-31-2023 End: 05-31-2023 Patient encounter procedure 05/31/2023 Office Visit Primary Care Yasmin Thompson, NURSE OUTREACH CASE MANAGER - TRAINS DISPATCHER SUPERVISOR [address] [facility] [address] [place] [address] [facility] Start: 05-04-2023 Depression Monitoring Depression Mon itoqueenie [facility] Start: 01-23-2023 End: 01-23-2023 Patient encounter procedure 01/23/2023 Office Visit Primary Care Yasmin Thompson, NURSE OUTREACH CASE MANAGER - TRAINS DISPATCHER SUPERVISOR [address] [facility] [address] [place], [place] [id number] [facility] Start: 11-04-2022 End: 11-04-2022 Patient encounter procedure 11/04/2022 Office Visit Primary Care Yasmin Thompson, NURSE OUTREACH CASE MANAGER - TRAINS DISPATCHER SUPERVISOR [address] [facility] [address] [place] [address] [facility] Start: 10-26-2022 Screening for malign ant neoplasm of cervix Cervical cancer screen [facility] Comment on above: Postponed from 08/04 (Not Indicated) Start: 06-23-2022 Influenza vaccination Flu vaccine (# 1) [facility] Start: 03-27-2022 HIV screening HIV screen [facility] Work Phone: Comment on above: Postponed from 08/04 (Patient Refused) Start: 11-01-2021 COVID-19 Vaccine (4 - Booster for Moderna series) COVID-19 Vaccine (4 - Booster for Moderna series) [facility] Start: 07-26-2021 End: 07-26-2021 Patient encounter procedure 07/26/2021 Office Visit Family Medicine Gase, Yeison Rowe MD [address] [facility] [address] [place] [id number] [facility] Start: 2010 Screening for malign ant neoplasm of cervix HPV (without or with Pap) [facility] Start: 2001 Screening for malign ant neoplasm of cervix [facility] Start: 1999 DTaP/Tdap/Td vaccine (1 - Tdap) DTaP/Tdap/Td vaccine (1 - Tdap) [employer] Phone: Start: 1995 HIV screening HIV screen [employer] Start: 1980 Hepatitis B vaccine (1 of 3 - 3-dose series) Hepatitis B vaccine (1 of 3 - 3-dose series) [facility] End: 12-11-2022 Calprotectin Stool [employer] Phone: Comment on above: 1 Occurrences starti ng 12/11/2022 until 12/11/2022 Celiac Disease Panel Celiac Dise ase Panel Lab Routine Abdominal bloating Loose stools 12/09/2022 5:03 PM EST [employer] Phone: EKG 12 lead EKG 12 lead ECG Routine Chest pain, unspecified type 03/31/2021 2:34 PM EDT [employer] Phone: End: 02-10-2024 Gastrointestinal Panel, Molecular [facility] Comment on above: 1 Occurrences starti ng 02/10/2024 until 02/10/2024 End: 02-10-2024 Giardia / Cryptosporidum antigens Elias Borges [facility] Comment on above: 1 Occurrences starti ng 02/10/2024 until 02/10/2024 End: 02-10-2024 H. pylori antigen [facility]as Borg[facility] Comment on above: Once for 1 Occurrenc es starting 02/10/2024 until 02/10/2024 End: 02-10-2024 H. Pylori Antigen, Stool H. Pylori Antigen, Stool Lab Routine Flatulence, eructation and gas pain Change in bowel habits 1 Occurrences starting 02/10/2024 until 02/10/2024 Elias Borges Urzeda Comment on above: 1 Occurrences starti ng 02/10/2024 until 02/10/2024 End: 03-31-2021 Hemoglobin A1c/Hemoglobin.total in Blood Hemoglobin A1C Lab Routine Wellness examination Diabetes mellitus screening 1 Occurrences starting 03/31/2021 until 03/31/2021 [employer] Phone: Comment on above: 1 Occurrences starti ng 03/31/2021 until 03/31/2021 Hemoglobin A1c/Hemoglobin.total in Blood Hemoglobin A1C Lab Routine Wellness examination Diabetes mellitus screening 03/31/2021 2:20 PM EDT [facility] Work Phone: End: 12-09-2022 Hemoglobin A1c/Hemoglobin.total in Blood [facility] Work Phone: Comment on above: 1 Occurrences starti ng 12/09/2022 until 12/09/2022 End: 02-10-2024 Pancreatic elastase, fecal [facility] Work Phone: Comment on above: 1 Occurrences starti ng 02/10/2024 until 02/10/2024 End: 02-10-2024 SPECIMEN REJECTION [facility] Comment on above: Once for 1 Occurrenc es starting 02/10/2024 until 02/10/2024 End: 01-17-2023 Thyroid Peroxidase Antibody [facility] Work Phone: Comment on above: 1 Occurrences starti ng 01/17/2023 until 01/17/2023 Immunizations Immunization Date Immunization Notes Care Provider [facility] 08-01-2022 influenza virus vaccine, unspecified formulation Yasmin Thompson APRN - TRAINS DISPATCHER SUPERVISOR Work Phone: [facility] Work Phone: 05-04-2022 tetanus toxoid, redu leona diphtheria toxoid, and acellular pertussis vaccine, adsorbed [facility] 4 [facility] Work Phone: 09-06-2021 COVID-19, MODERNA Booster BLUE border, (age 18y+), IM, 50mcg/0.25mL Mth 4 [facility] 2021 influenza virus vaccine, unspecified formulation [facility] 4 [facility] 01-15-2021 COVID-19, Moderna, P F, 100mcg/0.5mL Yeison Spencer MD Work Phone: [facility] Work Phone: 12-16-2020 COVID-19, Moderna, P F, 100mcg/0.5mL Yeison Spencer MD Work Phone: [facility] Work Phone: 07-30-2020 influenza virus vaccine, unspecified formulation Yeison Spencer MD Work Phone: [facility] 07-16-2019 influenza virus vaccine, unspecified formulation Yeison Spencer MD Work Phone: [facility] Work Phone: 06-16-2018 influenza virus vaccine, unspecified formulation Yeison Spencer MD Work Phone: [facility] 06-16-2018 influenza, injectabl e, quadrivalent, preservative free Yeison Spencer MD Work Phone: [facility] Payers Date Payer Category Payer Self-pay 1980 Unknown [id number] 2.16.84 [id number] 1980 Unknown [id number] 2.16.84 [id number] 1980 Unknown [id number] 2.16.8 [id number] 1980 Unknown [id number] 2.16.8 [id number] 1980 Unknown [id number] 2.16.8 [id number] 1980 Unknown [id number] 2.16.8 [id number] 1959 Unknown [id number] Unknown [id number] 2.16.8 [id number] Social History Date Type Detail Facility Start: 03-19-2019 End: 12-01-2023 Tobacco smoking status [facility] Former smoker [facility] Work Phone: Start: 10-23-1996 End: 06-27-2012 History of tobacco use Current smoker [employer] Start: 03-19-2019 End: 12-09-2022 Cigarettes smoked current (pack per day) - Reported [employer] Work Phone: Start: 03-19-2019 End: 12-01-2023 Tobacco use and exposure Never used [employer] Start: 03-19-2019 End: 02-08-2024 Alcohol intake Current drinker of alcohol (finding) [employer] Work Phone: Start: 03-31-2021 End: 12-09-2022 History SDOH Financial 5 [employer] Work Phone: Start: 03-31-2021 End: 12-09-2022 History SDOH Food Worry 1 [employer] Work Phone: Start: 03-27-2017 Alcohol Comment socially [employer] Work Phone: Start: 1980 Sex Assigned At Not on file [employer] Work Phone: Start: 10-23-1996 End: 06-27-2012 History of tobacco use Cigarette Smoker [facility] Work Phone: Start: 12-09-2022 History SDOH Transpo rt Non-Med 2 [facility] Work Phone: Start: 1980 Sex Assigned At Female F [facility] Start: 12-09-2022 End: 02-08-2024 Sex Assigned At [facility] [employer] Other How hard is it for y ou to pay for the very basics like food, housing, medical care, and heating Not hard at all Elias Borges [facility] (I/We) worried wheth er (my/our) food would run out before (I/we) got money to buy more. Never true Elias Borges [facility]zed[facility] At any time in the p ast 12 months, were you homeless or living in custodial [including now]? No [employer] Clinical Notes 01-04-2023 Note Date & Type [...] for pain. Call orthopedics for follow-up exam. [employer] [place] Other Evaluation note* Diagnosis Chest pain, unspecified type documented in this encounter [employer] Work Phone: [email or web address] note* Diagnosis Wellness examination Lipid screening Screening for lipoid disorders Diabetes mellitus screening Screening for diabetes mellitus documented in this encounter [employer] Phone: evalycgrrd note* Diagnosis Numbness and tingling in right hand Disturbance of skin sensation Wellness examination documented in this encounter [employer] Phone: evalzrvskg note* Diagnosis Elevated glucose Other abnormal glucose Abdominal bloating Flatulence, eructation, and gas pain Loose stools Abnormal feces documented in this encounter [employer] Phone: [email or web address] note* Diagnosis Abdominal bloating Flatulence, eructation, and gas pain Loose stools Abnormal feces documented in this encounter [employer] Phone: evaluation noteNo assessment information available [facility] Work Phone: Evaluation note* Diagnosis Hypothyroidism, unspecified type documented in this encounter [employer] Phone: evalzjbgno note* Diagnosis Arcelia's disease Chronic lymphocytic thyroiditis documented in this encounter [employer] Phone: evalmitrkq note* Diagnosis Change in bowel habits Other symptoms involving digestive system Flatulence, eructation and gas pain Flatulence, eructation, and gas pain Screening for colon cancer Special screening for malignant neoplasms, colon documented in this encounter PRIYANKA KINGCarmelina [facility] general Narrative - Reported* Type Description Date Surgical History C section Hospitalization History See Above [employer] [place] Other Summary Purpose Family History No Family History Records FoundNo Family History Records FoundNo Family History Records FoundNo Family History Records Found Advance Directives No Advanced Directives Records FoundDocuments on File Type Date Recorded Patient Glove Cutter Expl anation ACP-Advance Directive ACP-[employer] Trans[employer] Documents on File Type Date Recorded Patient Glove Cutter Expl anation ACP-Advance Directive ACP-[employer] Transporter Reason for Referral Status Reason Specialty Diagnoses / Procedures Referred By Contact Referred To Contact Pending Review Cardiology Diagnoses Chest pain, unspecified type Procedures EKG 12 lead Yasmin Thompson APRN - CNP [address] [place] [address] Specialty Diagnoses / Procedures Referred By Contac t Referred To Contact Radiology Diagnoses Arcelia's disease Procedures US THYROID Yasmin Thompson APRN - CNP [address] [place] [address] Referral ID Status Reason Start Date Expiration Date Visits Re quested Visits Authorized [id number] Open 01/23/2023 01/23/2024 1 1 Additional Source Comments INFORMATION SOURCE (unrecogn ized section and content) DATE CREATED AUTHOR 12/14/2019 [facility] DATE CREATED AUTHOR AUTHOR'S ORGANIZ ATION 07/01/2022 [facility] DATE CREATED AUTHOR AUTHOR'S ORGANIZ ATION 01/20/2023 [facility] DATE CREATED AUTHOR AUTHOR'S ORGANIZ ATION [facility] (unrecognized sec tion and content) Catering Associate Relationship Specialty Start Date End Date Yasmin Thompson APRN - CNP [address] [place] [address] PCP - General Family Nurse Practitioner 02/01/22 Catering Associate Relationship Specialty Start Date End Date Yasmin Thompson APRN - CNP [address] [place] [address] PCP - General Family Nurse Practitioner 02/01/22 Catering Associate Relationship Specialty Start Date End Date Yasmin Thompson NURSE OUTREACH CASE MANAGER - [address] [place] [address] PCP - General Family Nurse Practitioner 11/01/22 Catering Associate Relationship Specialty Start Date End Date Yasmin Thompson APRN - [address] [place] [address] PCP - General Family Nurse Practitioner 11/01/22 Team Status: Inactive Member Role Status Dates Shanel Ventura NP-C Attending Provider Active Catering Associate Relationship Specialty Start Date End Date Yasmin Thompson APRN - [address] [place] [address] PCP - General Family Nurse Practitioner 11/01/22 Catering Associate Relationship Specialty Start Date End Date Yasmin Thompson APRN - [address] [place] [address] PCP - General Family Nurse Practitioner 11/01/22 Catering Associate Relationship Specialty Start Date End Date Yasmin Thompson APRN - [facility] [address] [place] [address] [place] [address] PCP - General Family Nurse Practitioner 11/01/22 Goals (unrecognized section and content) Goals may be documented in a n alternate sectionNo Information REASON FOR VISIT (unrecogniz ed section and content) Specialty Diagnoses / Procedures Referred By Brian t Referred To Contact Radiology Diagnoses Arcelia's disease Procedures US THYROID Yasmin Thompson NURSE OUTREACH CASE MANAGER - [address] [place] [address] Referral ID Status Reason Start Date Expiration Date Visits Re quested Visits Authorized [id number] Open 01/23/2023 01/23/2024 1 1 FOR RECORDS [...] BE BASED ON THE PRIMARY CLINICAL RECORDS. [facility] [employer] [facility]. provides no warranty or guarantee of the accuracy or completeness of information in this document.
[2024-07-25 15:12] LABS: Age Gdln ACOG Testing Note (.); HPV Aptima Negative (Negative); IGP, Aptima HPV, rfx 16/18,45 Note (.)
== END 2024-07-18 19:04 | disposition home or self-care (01) ==
LOC: LAB 19:03
PROVIDERS: Visit Provider Physician Assistant
DX: Z01.419 Encounter for gynecological examination (general) (routine) without abnormal findings (principal)
CPT/HCPCS: 87624; 88175

== ENCOUNTER 2025-07-22 21:20 | Outpatient (REF) | payer OTHER, SELFPAY ==
--- OUTSIDE RECORDS SUMMARY | 2025-07-22 14:53 | XMS_ITS ---
Author Name Auto Generated Organization OH[facility] Care Team Providers Care Photograph Tinter Name Role Phone SHELBY VEGA Attending Unavailable MARYAN BOWEN Attending Unavailable SHELBY VEGA Referring Unavailable KELLY STOKES Primary Care Unavailable PROBLEMS DATE TYPE CONDITION / CODE ATTENDING STATUS [facility] 03/21/2025 Unknown Encounter for [facility] medical examination without abnormal findings / Z00.00(ICD-10) NA Active [facility] l PROCEDURES No Procedure Records Found RESULTS LIPID PROFILE Collected: 03/21/2025 12:34 PM Status: F Source: [facility] TYPE CODE TESTS RESULT OUT OF RANGE REFERENCE UNITS LAB CHOL(LOINC) Cholesterol 196 0-199 mg/dL Result Comment: Cholesterol Guidelines: <200 Desirable 200-240 Borderline >240 Undesirable LAB HDL(LOINC) Cholesterol,HDL 53 >40 mg/dL Result Comment: HDL Guidelines: <40 Undesirable 40-59 Borderline >59 Desirable LAB LDL(LOINC) Cholesterol,LDL 121 High 0-100 mg/dL Result Comment: LDL Guidelines: <100 Desirable 100-129 Near to/above Desirable 130-159 Borderline >159 Undesirable Direct (measured) LDL and calculated LDL are not interchangeable tests. LAB CHR(LOINC) Chol/HDL Ratio 3.7 <5.0 LAB TRIG(LOINC) Triglycerides 108 <150 mg/dL Result Comment: Triglyceride Guidelines: <150 Desirable 150-199 Borderline 200-499 High >499 Very high Based on AHA Guidelines for fasting triglyceride, July 2012. LAB VLDL(LOINC) Cholesterol,VLDL 22 1-30 mg/ dL Performed By: #### LIPR #### [address] [id number] Factory Maintenance Manager: Amador Awan MD CBC Collected: 5 12:34 PM Status: F Source: [facility] TYPE CODE TESTS RESULT OUT OF RANGE REFERENCE UNITS LAB WBC(LOINC) WBC Count 5.6 3.5-11.3 k/uL LAB RBC(LOINC) RBC Count 4.16 3.95-5.11 m/uL LAB HGB(INC) Hemoglobin 12.7 11.9-15.1 g/dL LAB HCT(INC) Hematocrit 37.8 36.3-47.1 % LAB MCV([facility]) MCV 90.9 82.6-102.9 fL LAB MCH([facility]) MCH 30.5 25.2-33.5 pg LAB MCHC([facility]) MCHC 33.6 28.4-34.8 g/dL LAB RDW([facility]) RDW 12.1 11.8-14.4 % LAB PLT([facility]) Platelet Count 318 138-453 k/uL LAB MPVX([facility]) MPV 8.5 8.1-13.5 fL LAB NRBCS([facility]) NRBC Automated 0.0 0.0 per 100 WBC Performed By: #### VD25, GLY HGB #### [address] [id number] Factory Maintenance Manager: Amador Awan MD #### BMP, CBC, AST, ALT #### [address] [place] [address] Factory Maintenance Manager: Jeremiah Lozada MD ALT Collected: 5 12:34 PM Status: F Source: [facility] TYPE [facility] TESTS RESULT OUT OF RANGE REFERENCE UNITS LAB ALT([facility]) ALT 14 10-35 U/L Performed By: #### VD25, GLY HGB #### [address] [id number] Factory Maintenance Manager: Amador Awan MD #### BMP, CBC, AST, ALT #### [address] [place], [place] [id number] Factory Maintenance Manager: Jeremiah Lozada MD AST Collected: 5 12:34 PM Status: F Source: [facility] TYPE CODE TESTS RESULT OUT OF RANGE REFERENCE UNITS LAB AST(LOINC) AST 21 10-35 U/L Performed By: #### VD25, GLY HGB #### [employer] [address] [place] [address] Factory Maintenance Manager: Amador Awan MD #### BMP, CBC, AST, ALT #### [facility] [address] [place] [address] Factory Maintenance Manager: Jeremiah Lozada MD BASIC METABOLIC PROF Collected: 025 12:34 PM Status: F Source: [facility] TYPE CODE TESTS RESULT OUT OF RANGE REFERENCE UNITS LAB NA(LOINC) NA (Sodium) 140 136-145 mmol/L LAB K(LOINC) K (Potassium) 4.1 3.7-5.3 mmol/L LAB CL(LOINC) Chloride 104 98-107 mmol/L LAB HCO(LOINC) CO2 24 20-31 mmol/L LAB GAP(LOINC) Anion Gap 12 9-16 mmol/L LAB GLU(LOINC) Glucose 83 74-99 mg/dL LAB BUN(LOINC) BUN (Urea N) 11 6-20 mg/dL LAB CRE(LOINC) Creatinine 0.8 0.50-0.90 mg/dL LAB EGFR(LOINC) eGFR >90 >60 mL/min/1. 73m2 Result Comment: These results are not intended [...] following therapy that affects renal tubular secretion. LAB BUNCRE(LOINC) BUN/CRE Ratio 14 9-20 LAB CA(LOINC) Calcium 9.4 8.6-10.4 mg/dL Performed By: #### VD25, GLY HGB #### [facility] [address] [place], [place] [id number] Factory Maintenance Manager: Amador Awan MD #### BMP, CBC, AST, ALT #### [address] [place] [address] Factory Maintenance Manager: Jeremiah Lozada MD VITAMIN D 25 [place] Collected: 12:34 PM Status: F Source: [facility] TYPE CODE TESTS RESULT OUT OF RANGE REFERENCE UNITS LAB VD25(LOINC) Vitamin D 25 [place] 40.8 30.0-100.0 ng/mL Result Comment: Reference Range: Vitamin D status Range Deficiency <20 ng/mL Mild Deficiency 20-30 ng/mL Sufficiency 30-100 ng/mL Toxicity >100 ng/mL Performed By: #### VD25, GLY HGB #### [place] [address] [place], [place] [id number] Factory Maintenance Manager: Amador Awan MD #### BMP, CBC, AST, ALT #### [address] [place] [address] Factory Maintenance Manager: Jeremiah Lozada MD HEMOGLOBIN A1C Collected: 03/21/2025 12:34 PM Status : F Source: [facility] TYPE CODE TESTS RESULT OUT OF RANGE REFERENCE UNITS LAB PA1CM(LOINC) Hemoglobin A1C 5.2 4.0-6.0 % LAB EAG(LOINC) Estimated Ave Gluc 103 mg/dL Result Comment: The ADA and AACC recommend providing the estimated average glucose result to permit better patient understanding of their HBA1c result. Performed By: #### VD25, GLY HGB #### [facility] [employer] [facility] [place], [place] [id number] Factory Maintenance Manager: Amador Awan MD #### BMP, CBC, AST, ALT #### [address] [place] [address] Factory Maintenance Manager: Jeremiah Lozada MD THYROID STIM. HORM. Collected: 03/21/20 12:30 PM Status: F Source: [facility] TYPE CODE TESTS RESULT OUT OF RANGE REFERENCE UNITS LAB TSH(LOINC) Thyroid Stim. Horm. 4.63 High 0.27-4.20 uIU/mL Performed By: #### FT3, FT4 #### [address] [address] Factory Maintenance Manager: Amador Awan MD #### TSH #### [address] [place] [address] Factory Maintenance Manager: Jeremiah Lozada MD T3, FREE Collected: 5 12:30 PM Status: F Source: [facility] TYPE CODE TESTS RESULT OUT OF RANGE REFERENCE UNITS LAB FT3(LOINC) T3, Free 2.46 2.00-4.40 pg/mL Performed By: #### FT3, FT4 #### [address] [address] Factory Maintenance Manager: Amador Awan MD #### TSH #### [address] [facility]83 Factory Maintenance Manager: Jeremiah Lozada MD THYROXINE, FREE Collected: 5 12:30 PM Status: F Source: [facility] TYPE CODE TESTS RESULT OUT OF RANGE REFERENCE UNITS LAB FT4(LOINC) Thyroxine, Free 1.1 0.92-1.68 ng/dL Performed By: #### FT3, FT4 #### [address] [address] Factory Maintenance Manager: Amador Awan MD #### TSH #### [address] [place] [address] Factory Maintenance Manager: Jeremiah Lozada MD ALLERGIES No Allergies Records Found ENCOUNTERS ADMIT/DISCHARGE ACCOUNT NUMBER ADMITTING ENCOUNTER CLASS LOCATION SOURCE 07/22/2025/ 5 [id number] Ambulatory Building:NOM S BCP OB [facility] 03/31/2025/ 5 [id number] Ambulatory Building:NOM S SH ENDO [facility] 03/21/2025/ [id number] Ambulatory Building:[facility] PAYERS ENCOUNTER GUARANTOR PAYER SUBSCRIBER SOURCE 07/22/2025 GIULIA FRETZDOB: [place] [address]Sey: (HP) (WP) Primary Insurance:[place] [facility] ATHPolicy Number: [id number] petrona Date:2023-10-23 ELDA FRETZDOB: [id number] [place] [address] [facility] EPIC 03/31/2025 GIULIA FRETZDOB: [place] [address]Gst: (HP) (WP) Primary Insurance:[place] [facility] ATHPolicy Number: [id number] petrona Date:2023-10-23 ELDA FRETZDOB: [id number] [place] [address] [facility] EPIC 03/21/2025 GIULIA FRETZDOB: [facility] [place], [place] [address]Jfh: () Primary Insurance:[employer] Policy Number: [id number] petrona Date:2018-10-23 ELDA Myers FRETZDOB: [id number] [facility] [place], [place] [address]Pnm: () [facility]
[2025-07-26 22:06] LABS: Age Gdln ACOG Testing Note (.); IGP, Aptima HPV, rfx 16/18,45 Note (.)
== END 2025-07-22 21:21 | disposition home or self-care (01) ==
LOC: LAB 21:20
PROVIDERS: Visit Provider Nurse Practitioner Family
DX: Z01.419 Encounter for gynecological examination (general) (routine) without abnormal findings (principal)
CPT/HCPCS: 87624; 88175

== ENCOUNTER 2025-08-28 16:16 | Outpatient (OUT) | payer OTHER, SELFPAY ==
--- OUTSIDE RECORDS SUMMARY | 2025-08-28 16:18 | XMS_ITS | Clinical Summary ---
Author Organization [facility] Address [address] [place] [address] Care Team Providers Care Liner Roll Changer Name Role Phone Yasmin Thompson MD Unavailable [phone] Jose Peterson MD Primary Care Provider [phone] Allergies No known active allergies Medications MedicationSigDispense QuantityRefillsLast FilledStart DateEnd DateStatus amitriptyline (Elavil) 25 MG tablet Take 25 mg by mouth at bedtimeActive venlafaxine (Effexor) 75 MG tablet Take 75 mg by mouth DailyActive Multiple Vitamin (Multi Vitamin) tablet 1 (one) time each day at the same timeActive cholecalciferol (Vitamin D-3) 25 MCG (1000 UT) tablet Take 1 tablet by mouth DailyActive fluticasone (Flonase) 50 MCG/ACT nasal spray Administer 1 spray into each nostril Daily Shake gently. Before first use, prime pump. After use, clean tip and replace cap.Active levothyroxine (Synthroid, Levoxyl) 75 MCG tablet Indications:Arcelia's diseaseTake 1 tablet (75 mcg) by mouth in the morning. Take before meals. 90 tablet 506/6Active Encounters DateTypeDepartmentCare DpncLzndqtidedn52/07/2025Orders Only [facility]BY CLANCY [address] [place] [address] Shanelle Kaiser LPN 07/22/2025 3:00 PM EDTOffice Visit [facility]ANC[facility] [address] [place] [address] Courtney Dave NP Well woman exam with routine gynecological exam; Breast cancer screening by mzbxobqfz96/30/2025linisync Result Encounter [facility] External Department Unsolicited Courtney Dave NP 07/22/2025amboo flowsheet [facility] [address] [place] [address] [place] [address] Courtney Dave NP 07/21/2025Travelfrom Last 3 Months Family History Medical HistoryRelationNameCommentsHeart diseaseFatherHyperlipidemiaFather HypothyroidismFatherArthritisMotherDiabetesMotherMigrainesMotherRelationName StatusCommentsFatherAliveMotherAlive Social History Tobacco UseTypesPacks/DayYears UsedDateSmoking Tobacco: Never Assessed CommentsUnknownSex and Gender InformationValueDate RecordedSex Assigned at Not on fileLegal NrwUjqdhv08/15/2023 11:47 PM EDTGender IdentityNot on file Sexual OrientationNot on file Last Filed Vital Signs Vital SignReadingTime TakenCommentsBlood Ouyuelka998/7609 3:04 PM EDT Wlcqu92191/09/2025 1:06 PM EDTTemperature--Respiratory Hknu572303/31/2025 1:06 PM EDTOxygen Imuxfjayao62%03/31/2025 1:06 PM EDTInhaled Oxygen Concentration-- Bspees95 kg (183 lb)07/22/2025 3:04 PM XFUTnoqlw824.6 cm (5' 4 )03/31/2025 1:06 PM EDTBody Mass Index31.41003/31/2025 1:06 PM EDT Plan of Treatment DateTypeDepartmentCare Team (Latest Contact Info)Cwrltlobhjh78/08/2026 1:10 PM EDTOffice Visit [facility] [place] [facility] [address] [place] [address] Eliu Sutton MD [address] [place] [address] 07/27/2026 3:00 PM EDTProcedure Visit [facility] CLANCY [address] [place] [address] Sarah Saunders PA [address] [facility] [place] [address] Procedures Procedure NamePriorityDate/TimeAssociated DiagnosisCommentsIGP,APTIMA HPV,AGE IYFRCxzsine01/30/2025 2:59 PM EDT PAP PMELOOsmlntz77/30/2025 12:00 AM EDTfrom Last 3 Months Results * IGP,APTIMA HPV,AGE GDLN (07/22/2025 2:59 PM EDT)ComponentValueRef RangeTest MethodAnalysis TimePerformed AtPathologist SignatureAGE GDLN ACOG TESTINGNote. TBHComment: ?? TESTS ? RESULT ??FLAG ??UNITS ?REF RANGE ??LAB ?? Clinician Provided Cytology Information ?? Source.............Cervix;Endocervix ?? No. of containers..01 ThinPrep Vial Age Algo ACOG Isabelle... ??30-65 ? 01 ?FLAG LEGEND: ?L-Low Normal,H-High Normal,LL-Alert Low,HH-Alert High <-Panic Low,>-Panic High,A-Abnormal,AA-Critical Abnormal Performed at: 01 =G ?[facility] [place] ?? [address] [place] ??[address] ?? Bernie Brown MD, IGP, APTIMA HPV, RFX 16/18,45Note.TBHComment: ?? TESTS ? RESULT ??FLAG ??UNITS ?REF RANGE ??LAB DIAGNOSIS: ?02 ?? NEGATIVE FOR INTRAEPITHELIAL LESION OR MALIGNANCY. ?? CELLULAR CHANGES ASSOCIATED WITH INFLAMMATION ARE PRESENT. Specimen adequacy: ?02 ?? Satisfactory for evaluation. No endocervical component is identified. Performed by: ? 02 ?? Arlette Ybarra, Beveler (ASCP) . ? 02 Note: ? Note ?02 ?? The Pap smear is a screening test designed to aid in the ?? detection of premalignant and malignant conditions of the ?? uterine cervix. ??It is not a diagnostic procedure and ?? should not be used as the sole means of detecting cervical ?? cancer. ??Both false-positive and false-negative reports do ?? occur. Test Methodology: ? Note ?02 ?? This liquid based ThinPrep(R) pap test was screened with ?? the use of an image guided system. HPV Genotype Reflex ?? Note ?02 ?? Criteria not met, HPV Genotype not performed. ?FLAG LEGEND: ?L-Low Normal,H-High Normal,LL-Alert Low,HH-Alert High <-Panic Low,>-Panic High,A-Abnormal,AA-Critical Abnormal Performed at: 02 WB ?[facility] [place] ?? [address] [place] ??[address] ?? Bernie Brown MD, HPV APTIMANegativeNegativeTBHComment: This nucleic acid amplification test detects fourteen high- risk HPV types (16,18,31,33,35,39,45,51,52,56,58,59,66,68) without differentiation. Performed at: ??=G - [facility] [address] [place], [place] ??[id number] Casing Wringer Operator: Bernie Brown MD, Phone: ??[phone] Performed at: ??WB - [facility] [address] [place], [place] ??[id number] Casing Wringer Operator: Bernie Brown MD, Phone: ??[phone] Specimen (Source)Anatomical Location / LateralityCollection Method / Volume Collection TimeReceived Time07/22/2025 2:59 PM EDT1 6:47 AM EDT Narrative [facility] - 07/26/2025 10:06 PM EDT BRUSH-SPATULA CERVIX ENDOCERVIX Authorizing ProviderResult TypeResult StatusCourtney Dave NPLAB BLOOD ORDERABLESFinal ResultPerforming OrganizationAddressCity/State/ZIP CodePhone Number [facility] * Pap Smear (07/22/2025 12:00 AM EDT)Specimen (Source)Anatomical Location / LateralityCollection Method / VolumeCollection TimeReceived TimeSwabCervical swab / Unknown Narrative Authorizing ProviderResult TypeResult StatusFazio Nurse [facility] CYTOLOGY ORDERABLESFinal ResultPerforming OrganizationAddressCity/State/ZIP CodePhone Number EXTERNAL LAB from Last 3 Months Insurance Care Teams Team MemberRelationshipSpecialtyStart DateEnd Date Jose Peterson MD [address] [place] [address] [address] [place], [place] [phone] PCP - GeneralFamily Medicine07/10/24 Yasmin Thompson MD [address] [place] [address] [address] [place] [address] Referring PhysicianFamily Medicine07/10/24
--- OUTSIDE RECORDS SUMMARY | 2025-08-28 16:18 | XMS_ITS | Encounter Summary ---
Author Organization [facility] Address [address] [facility] [place] [address] Care Team Providers Care Casing Splitter Name Role Phone Yasmin Thompson MD Unavailable [phone] Jose Peterson MD Primary Care Provider [phone] Encounter Details DateTypeDepartmentCare Team (Latest Contact Info)Dwdxryqcduk99/29/2024Clinisync Result Encounter [facility] External Department Unsolicited Trav Mccauley DO [address] [place], [place] [address] Social History Tobacco UseTypesPacks/DayYears UsedDateSmoking Tobacco: Never Assessed CommentsUnknownSex and Gender InformationValueDate RecordedSex Assigned at Not on fileLegal TwjVixxfk00/15/2023 11:47 PM EDTGender IdentityNot on file Sexual OrientationNot on filedocumented as of this encounter Plan of Treatment DateTypeDepartmentCare Team (Latest Contact Info)Cfqyfgfhidy71/08/2026 1:10 PM EDTOffice Visit [facility] [address] [place] [address] Eliu Sutton MD [address] [place] [address] 07/27/2026 3:00 PM EDTProcedure Visit [facility] [address] [place] [address] Sarah Saunders PA [address] [place] [address] [place] [address] documented as of this encounter Procedures Procedure NamePriorityDate/TimeAssociated DiagnosisCommentsMM TOMOSYNTHESIS SCREENING BI05/20/2024 4:23 PM EDT documented in this encounter Results * MM TOMOSYNTHESIS SCREENING BI (05/20/2024 4:23 PM EDT)Anatomical Region LateralityModalityOtherSpecimen (Source)Anatomical Location / Laterality Collection Method / VolumeCollection TimeReceived Time05/20/2024 4:23 PM EDT Narrative 05/20/2024 4:24 PM EDT [facility] ?[address] ? [place] [address] ? Mammography Report ? Signed ? Patient: GIULIA BLACKWELL R ?MR#: [id number] ?? : 1980 ?Acct:[id number] ?? Age/Sex: 43 / F ?ADM Date: 05/20/24 ?? Loc: MAMMO ? Attending Dr: Trav Mccauley D.O. ? Ordering Physician: Trav Mccauley D.O. ?Results: ? Date of Service: 05/20/24 ?Follow Up: ? Procedure(s): MM tomosynthesis screening BI ?? Accession Number(s): [id number] ? cc: Trav Mccauley D.O.; Physician,Non-Staff MMoDMo ? Patient Name: ? GIULIA BLACKWELL ? MR#: [id number] ? : 1980 ? Exam Date: 05/20/2024 ?? Ordering Doctor: DR Trav Mccauley . ? RADIOLOGY REPORT ? PROCEDURE: ? MM TOMOSYNTHESIS SCREENING BI ? COMPARISON: ? MG MAMM SCREEN 3D LEIF CAD, 06/23/2022. ??MG MAMM SCREEN 3D LEIF ?? CAD, 06/24/2021. ? INDICATIONS: ? Screening ? Calculator Name ? NCI Breast Cancer Risk Assessment Tool ?? 5 Year Breast Cancer Risk ? 0.90% ?? Lifetime Breast Cancer Risk ? 12.10% ?? Personal Breast Cancer ?No ?? Personal Ovarian Cancer ? No ?? Treatments ? None ?? Family Cancers ? None ? LOCATION: ? [facility] ? BREAST COMPOSITION: ? The breasts are extremely dense, which lowers the ?? sensitivity of mammography. ? FINDINGS: ? DIAGNOSTIC CATEGORY 1--NEGATIVE. ? RIGHT BREAST: ??No significant suspicious finding. ??No significant change has ?? occurred. ? LEFT BREAST: ??No significant suspicious finding. ??No significant change has ?? occurred. ? RECOMMENDATIONS: ? ROUTINE MAMMOGRAM AND CLINICAL EVALUATION IN 12 MONTHS. ? PLEASE NOTE: ??A NORMAL MAMMOGRAM DOES NOT EXCLUDE THE POSSIBILITY OF BREAST ?? CANCER. ??A CLINICALLY SUSPICIOUS PALPABLE LUMP SHOULD BE BIOPSIED. ? Dictated by: Elbert Yang M.D. on 05/20/2024 at 16:21 ? Approved by: Elbert Yang M.D. on 05/20/2024 at 16:23 ? Dictated By: ?Elbert Yang M.D. ? Signed By: ?05/20/241623 ? DD/ 22 ? TD/TT: ? Glue Mounter Operator: Procedure Note Radiology, Radiologist, MD - 05/20/[address] [address] Mammography Report Signed Patient: GIULIA BLACKWELL RMR#: [id number] : 1980Acct:[id number] Age/Sex: 43 / FADM Date: 05/20/24 Loc: MAMMO Attending Dr: Trav Mccauley D.O. Ordering Physician: Trav Mccauley D.O.Results: Date of Service: 05/20/24Follow Up: Procedure(s): MM tomosynthesis screening BI Accession Number(s): [id number] cc: Trav Mccauley D.O.; Physician,Non-Staff Meredith Patient Name: GIULIA BLACKWELL MR#: [id number] : 1980 Exam Date: 05/20/2024 Ordering Doctor: DR Trav Mccauley . RADIOLOGY REPORT PROCEDURE: MM TOMOSYNTHESIS SCREENING BI COMPARISON: MG MAMM SCREEN 3D LEIF CAD, 06/23/2022. MG MAMM SCREEN 3DBIL CAD, 06/24/2021. INDICATIONS: Screening Calculator Name NCI Breast Cancer Risk Assessment Tool 5 Year Breast Cancer Risk 0.90% Lifetime Breast Cancer Risk 12.10% Personal Breast Cancer No Personal Ovarian Cancer No Treatments None Family Cancers None LOCATION: [facility] BREAST COMPOSITION: The breasts are extremely dense, which lowers the sensitivity of mammography. FINDINGS: DIAGNOSTIC CATEGORY 1--NEGATIVE. RIGHT BREAST: No significant suspicious finding. No significant changehas occurred. LEFT BREAST: No significant suspicious finding. No significant changehas occurred. RECOMMENDATIONS: ROUTINE MAMMOGRAM AND CLINICAL EVALUATION IN 12 MONTHS. PLEASE NOTE: A NORMAL MAMMOGRAM DOES NOT EXCLUDE THE POSSIBILITY OFBREAST CANCER. A CLINICALLY SUSPICIOUS PALPABLE LUMP SHOULD BE BIOPSIED. Dictated by: Elbert Yang M.D. on 05/20/2024 at 16:21 Approved by: Elbert Yang M.D. on 05/20/2024 at 16:23 Dictated By: Elbert Yang M.D. Signed By:05/20/24 1624 DD/ 162 TD/TT: Glue Mounter Operator: Authorizing ProviderResult TypeResult StatusCorey Garrick DOCLINISYNC IMAGINGFinal Result documented in this encounter Visit Diagnoses Not on filedocumented in this encounter Care Teams Team MemberRelationshipSpecialtyStart DateEnd Date Jose Peterson MD [address] [place] [address] [facility] [address] [place], [place] [address] PCP - GeneralFamily Medicine07/10/24 Yasmin Thompson MD [address] [place] [address] [address] [place], [place] [phone] Referring PhysicianFamily Medicine07/10/24documented as of this encounter
--- OUTSIDE RECORDS SUMMARY | 2025-08-28 16:19 | XMS_ITS | Patient Health Record ---
Author Organization [facility] [employer] [facility] Address [address] [place] [address] Care Team Providers Care Airborne And Air Delivery Specialist Name Role Phone Jeremiah Montoya Primary Care Provider ALLERGIES No Known Allergies REASON FOR REFERRAL No Information MEDICATIONS Medication SIG (Take, Route, Frequency, Duration) Notes Start Date End Date Status Venlafaxine HCl ER 75 MG 1 capsule with food in AM Orally Once a day ActiveLevothyroxine Sodium 75 MCG1 tablet in the morning on an empty stomach Orally Once a dayActiveAmitriptyline HCl 25 MG1 tablet at bedtime Orally Once a dayActivepredniSONE 20 MG2 Orally Once a day for 3 days02/01/2024ctiveCefdinir 300 MG1 Orally twice daily for 10 days4Active IMMUNIZATIONS Vaccine Route Administration Date Status Comme nts Fluzone IM Intramuscular 08/06/2024 Administered SOCIAL HISTORY Tobacco Use: Social History Observation Description Date Details (start date - stop date) Former Smoker 02/01/1996 - 02/01/2012 Sex Assigned At : Social History Observation Description Sex Assigned At Unknown Tobacco Use/Smoking Question Answer Notes Are you a former user When did you start using?02/01/1996When did you stop using?02/01/2012Section Notes: Lives c , 2 kids and 2 dogs. [employer] - 8th grade math. EtOH 4-5 drinks/week. PROBLEMS Problem Type ICD Code Onset Dates Problem Status W/U Status Risk SNOMED Code Notes Problem Hypothyroidism (E03.9) ActiveconfirmedHypothyroidism (85147389)ProblemAnxiety state (F41.1)Active confirmedAnxiety state (694799656)ProblemDepression, major, single episode, moderate (F32.1)ActiveconfirmedModerate major depression, single episode (56796056) PLAN OF TREATMENT No Information MEDICAL (GENERAL) HISTORY Medical History History ICD Code Hypothyroidism E03.9 Headache R51 Depression, major, single episode, moder ate F32.1 Anxiety state F41.1 Surgical History Surgery Date(Month/Year) DELIVERY - 2012 Hospitalization History Reason Date(Month/Year) childbirth 2019
--- OUTSIDE RECORDS SUMMARY | 2025-08-28 16:19 | XMS_ITS | CCD ---
Author Organization [facility] Inform ion Partnership [facility] Care Team Providers Care Aircraft Magneto Mechanic Name Role Phone Gase Yeison ESTRADA Primary Care Provider [phone] Yasmin Clark APRN, CNP Primary Care Provide r MINE, DR TEE Attending Unavailable KARASIK, DR TEE Consulting Unavailable MISC, DR FLANAGAN Primary Care Unavailable KARASIK, DR TEE Admitting Unavailable KARASIK, DR TEE Admitting Unavailable KARASIK, DR TEE Attending Unavailable KARASIK, DR TEE Consulting Unavailable MISC, DR FLANAGAN Primary Care Unavailable [place], DR KANIKA Hodge Consulting Unavailable Yasmin Clark APRN, CNP Primary Care Provide r NISA Ventura Attending Provider Shanel Ventura Unavailable Shanel Ventura Attending Unavailable Shanel Ventuar Admitting Unavailable Yasmin Clark APRN, CNP Primary Care Provide r Unallocated Nacho ESTRADA Provider Primary Care Provi maria guadalupe Yasmin Thompson MD Unavailable [phone] Unallocated Nacho ESTRADA Provider Primary Care Provi maria guadalupe Yasmin Clark APRN, CNP Primary Care Provide r YASMIN THOMPSON Primary Care Unavailable YASMIN THOMPSON Referring Unavailable ELIU VEGA Referring Unavailable YASMIN THOMPSON Primary Care Unavailable ELIU VEGA Referring Unavailable YASMIN THOMPSON Primary Care Unavailable Jose Peterson MD Primary Care Provider Yasmin Thompson MD Unavailable ELIU VEGA Attending Unavailable MARYAN DAVE Attending Unavailable Yasmin Thompson MD Unavailable [phone] Jose Peterson MD Primary Care Provider [phone] Medications Current Medications MedicationDrug Class(es)DatesSig (Normalized)Sig (Original)amitriptyline hydrochloride 25 mg oral tablet (20 sources)Tricyclic AntidepressantStart: 05-52-7585fizs 1 tablet by mouth once dailyamitriptyline (ELAVIL) 25 MG tablet Indications: Insomnia, unspecified type Take 1 tablet by mouth nightly 90 tablet 3 07/02/2024 ActiveAmitriptyline HCl ActiveAscorbic Acid (1 source)Vitamin CAscorbic Acid (MARGOT-C PO) Take by mouth 0 Active cholecalciferol 0.025 mg oral tablet (12 sources)Vitamin Dtake 1 tablet by mouth once dailycholecalciferol (Vitamin D-3) 25 MCG (1000 UT) tablet Take 1 tablet by mouth Daily ActiveElastic Bandages & Supports (WRIST SPLINT/COCK-UP/RIGHT M) MISC (2 sources)Start: 92-67-9675Fdrrxmn Bandages & Supports (WRIST SPLINT/COCK- UP/RIGHT M) MISC 1 each by Does not apply route nightly 1 each 0 10/26/2021 Activeescitalopram 20 mg oral tablet (2 sources)Serotonin Reuptake InhibitorStart: 55-06-6268vgcy 1 tablet by mouth once dailyescitalopram (LEXAPRO) 20 MG tablet Take 1 tablet by mouth daily 90 tablet 3 05/04/2022 Activefluticasone propionate 0.05 mg/actuat metered dose nasal spray (17 sources)CorticosteroidStart: 11-57-9358clnomxqmnfp (FLONASE) 50 MCG/ACT nasal spray USE 2 SPRAYS BY NASAL ROUTE DAILY. 1 each 1 12/22/2023ctiveStart: 58-83-7061vmcqhlvwoer (FLONASE) 50 MCG/ACT nasal spray SPRAY 2 SPRAYS BY NASAL ROUTE DAILY 1 each 1 01/30/2023 ActiveStart: 55-53-1559xyjzavbexzl (FLONASE) 50 MCG/ACT nasal spray 2 sprays by Nasal route daily 1 each 1 01/06/2023 Active Start: 32-48-0613bvva 2 spray(s) nasal route once dailyfluticasone (FLONASE) 50 MCG/ACT nasal spray SPRAY 2 SPRAYS INTO EACH NOSTRIL EVERY DAY 2 each 1 ActiveStart: 91-31-7070eqvv 2 spray(s) nasal route once dailyfluticasone (FLONASE) 50 MCG/ACT nasal spray SPRAY 2 SPRAYS INTO EACH NOSTRIL EVERY DAY 1 each 3 04/21/2022 ActiveStart: 77-82-8814ixbh 2 spray(s) nasal route once daily fluticasone (FLONASE) 50 MCG/ACT nasal spray 2 sprays by Each Nostril route daily 1 Bottle 2 03/31/2021 Activetake 1 spray(s) nasal route once daily fluticasone (Flonase) 50 MCG/ACT nasal spray Administer 1 spray into each nostril Daily Shake gently. Before first use, prime pump. After use, clean tip and replace cap. Activetake 2 spray(s) nasal route once dailyfluticasone propionate 50 mcg/actuation nasal spray,suspension USE 2 SPRAYS NASALLY EVERY DAY active Not Available Not Available Not Availableibuprofen 600 mg oral tablet (1 source)Nonsteroidal Anti-inflammatory DrugStart: 70-37-3077waxc 1 tablet by mouth three times daily as needed for painibuprofen (ADVIL;MOTRIN) 600 MG tablet Take 1 tablet by mouth 3 times daily as needed for Pain 60 tablet 1 03/31/2021 Activelevothyroxine sodium 0.075 mg oral tablet (18 sources)l-ThyroxineStart: 10-03-2023 End: 19-32-5683dxjg 1 tablet by mouth before mealtimelevothyroxine (Synthroid, Levoxyl) 75 MCG tablet Indications: Arcelia's disease Take 1 tablet (75mcg) by mouth in the morning. Take before meals. 90 tablet 3 03/31/2025 03/26/2026 ActiveStart: 41-05-1464ydbv 1 tablet by mouth once dailylevothyroxine (SYNTHROID) 50 MCG tablet TAKE 1 TABLET BY MOUTH EVERY DAY 30 tablet 5 01/03/2023 ActiveLevothyroxine Sodium ActiveMultiple Vitamin (Multi Vitamin) tablet (10 sources)Multiple Vitamin (Multi Vitamin) tablet 1 (one) time each day at the same time ActiveMultiple Vitamin (MV-ONE PO) (8 sources)Multiple Vitamin (MV-ONE PO) Take by mouth ActiveMultiple Vitamin (MV-ONE PO) Take by mouth 0 ActivepredniSONE 20 mg oral tablet (1 source)take 1 tablet by mouth once dailyprednisone 20 mg tablet TAKE 1 TABLET EVERY DAY BY ORAL ROUTE FOR 5 DAYS, FOR SINUSITIS. active NotAvailable Not Available Not AvailablePrenatal Vit-Fe Fumarate-FA ( FORMULA PO) (2 sources) Vit-Fe Fumarate-FA ( FORMULA PO) Take by mouth 0 ActiveProbiotic (1 source)Probiotic ActiveProbiotic Product (PROBIOTIC PO) (1 source)Probiotic Product (PROBIOTIC PO) Take by mouth 0 Iiefhn99 hr venlafaxine 75 mg extended release oral capsule (18 sources)Serotonin and Norepinephrine Reuptake InhibitorStart: 21-24-9950ndru 1 capsule by mouth once dailyvenlafaxine (EFFEXOR XR) 75 MG extended release capsule TAKE 1 CAPSULE BY MOUTH EVERY DAY 90 capsule 3 12/26/2024 ActiveStart: 46-89-1110plba 1 capsule by mouth once dailyvenlafaxine (EFFEXOR XR) 75 MG extended release capsule TAKE 1 CAPSULE BY MOUTH EVERY DAY 90 capsule 3 12/27/2023 ActiveStart: 53-65-4722ciqk 1 capsule by mouth once dailyvenlafaxine (EFFEXOR XR) 75 MG extended release capsule Take 1 capsule by mouth daily 30 capsule 5 01/20/2023 ActiveStart: 71-45-2367vkax 1 capsule by mouth once daily venlafaxine (EFFEXOR XR) 75 MG extended release capsule Take 1 capsule by mouth daily 30 capsule 5 12/09/2022 Activetake 1 tablet by mouth once dailyvenlafaxine (Effexor) 75 MG tablet Take 75 mg by mouth Daily ActiveVenlafaxine HCl Active Completed/Discontinued Medications MedicationDrug Class(es)DatesSig (Normalized)Sig (Original)azithromycin 250 mg oral tablet (1 source)Macrolide Antimicrobial End: 39-61-5738gqvumitvnfbj 250 mg tablet TAKE 2 TABLETS BY MOUTH TODAY, THEN TAKE 1 TABLET DAILY FOR 4 DAYS DIRECTED 07/20/2025 completed Not Available Not Available Not Availablecefdinir 300 mg oral capsule (1 source)Cephalosporin Antibacterial End: 04-41-8005aejd 1 capsule by mouth twice dailycefdinir 300 mg capsule TAKE 1 CAPSULE BY MOUTH TWICE A DAY FOR 10 DAYS 09/26/2024 completed prior completion Not Available Not Available Not Availabledoxycycline hyclate 100 mg oral tablet (1 source)Tetracycline-class Drug End: 31-00-1766dxfc 1 tablet by mouth twice dailydoxycycline hyclate 100 mg tablet TAKE 1 TABLET BY MOUTH TWICE A DAY FOR 7 DAYS 09/26/2024 completed prior completion Not Available Not Available Not Available Problems Active Problems Problem ClassificationProblemDateDocumented DateEpisodic/ChronicAnxiety disorders (9 sources)Anxiety; Translations: [Anxiety disorder, unspecified]Onset: 749478-74-2950TovziqnVgqtdnnt mellitus without complication (1 source)Increased glucose level; Translations: [Other abnormal glucose] EpisodicHeadache; including migraine (3 sources)Refractory migraine; Translations: [Migraine, unspecified, intractable, without status migrainosus]Onset: 671185-72-1288Mgehnvd Headache; including migraine (10 sources)Generalized headache; Translations: [Generalized headaches] 50-75-2590PoedztvfLbbgfguldrfde mental health disorders (10 sources)Bruxism (teeth grinding); Translations: [Other somatoform disorders] Onset: 559060-80-1619WwgkykkYzab disorders (9 sources)Recurrent major depressive episodes, moderate ; Translations: [Major depressive disorder, recurrent, moderate]Onset: hronic Nonspecific chest pain (1 source)Chest pain; Translations: [Chest pain, unspecified]EpisodicOther acquired deformities (1 source)Mallet finger of left finger(s)EpisodicOther connective tissue disease (1 source)Pain in left finger(s)EpisodicOther gastrointestinal disorders (2 sources)Abdominal bloating; Translations: [Abdominal distension (gaseous)] EpisodicOther gastrointestinal disorders (2 sources)Loose stool; Translations: [Other fecal abnormalities]EpisodicOther gastrointestinal disorders (1 source)Altered bowel function; Translations: [Change in bowel habit] 13-86-1620DfnpcicnNqdhk gastrointestinal disorders (1 source)Flatulence, eructation and gas pain; Translations: [Flatulence] 54-55-3967WyfestimTjzzk nervous system disorders (1 source)Paresthesia of hand ; Translations: [Anesthesia of skin]EpisodicOther nutritional; endocrine; and metabolic disorders (2 sources)Obesity caused by energy imbalance; Translations: [Class 1 obesity due to excess calories without serious comorbidity with body mass index (BMI) of 31.0 to 31.9 in adult]80-56-8882FfruldfPdtjj screening for suspected conditions (not mental disorders or infectious disease) (12 sources)Patient encounter status; Translations: [Encounter for screening for lipoid disorders]Onset: 51-23-2181RwgknombQfnxp upper respiratory infections (10 sources)Chronic sinusitis; Translations: [Chronic sinusitis, unspecified] Onset: 682825-56-6245SdmjiupCreurxce codes; unclassified (2 sources)FH: Thyroid disorder; Translations: [Family history of other endocrine, nutritional and metabolic diseases]79-56-5843PefzqjudEvdqaba disorders (16 sources)Hypothyroidism; Translations: [Hypothyroidism, unspecified]Onset: 21-96-3618FopbrikOgvkyfgimlxy (1 source)Pain in left finger(s); Translations: [Pain in left finger(s)]Onset: 01-04-2023 Past or Other Problems Problem ClassificationProblemDateDocumented DateEpisodic/ChronicImmunizations and screening for infectious disease (2 sources)Encounter for screening for human papillomavirus (HPV); Translations: [Requires influenza virus vaccination]Onset: 06-01-2022 Resolved: 13-93-9374UviowfhySnakzhywacybw (10 sources)Cervical lymphadenopathy; Translations: [Localized enlarged lymph nodes]Onset: 041580-42-4805Oaeqoajv Results Test NameValueInterpretationReference RangeFacilityIGP,APTIMA HPV,AGE GDLNon 85-68-4343BWB GDLN ACOG TESTINGNote.NOMS HealthcareComment on above:TESTS RESULT FLAG UNITS REF RANGE LAB Clinician Provided Cytology Information Source.............Cervix;Endocervix No. of containers..01 ThinPrep Vial Age Faye RIBEIRO Isabelle... 30 FLAG LEGEND: L-Low Normal,H-High Normal,LL-Alert Low,HH-Alert High <-Panic Low,>-Panic High,A-Abnormal,AA-Critical Abnormal Performed at: 01 =G [address] [place] [address] Bernie Brown MD, HPV APTIMANegativeNegativeNOMS HealthcareComment on above:This nucleic acid amplification test detects fourteen high- risk HPV types (16,18,31,33,35,39,45,51,52,56,58,59,66,68) without differentiation. Performed at: =[address] [id number] [employer]ice: Bernie Brown MD, Phone: [phone] Performed at: - [address] [id number] [employer]ice: Bernie Brown MD, Phone: [phone] IGP, APTIMA HPV, RFX 16/18,45Note.NOMS HealthcareComment on above:TESTS RESULT FLAG UNITS REF RANGE LAB DIAGNOSIS: 02 NEGATIVE FOR INTRAEPITHELIAL LESION OR MALIGNANCY. CELLULAR CHANGES ASSOCIATED WITH INFLAMMATION ARE PRESENT. Specimen adequacy: 02 Satisfactory for evaluation. No endocervical component is identified. Performed by: 02 Arlette Ybarra, Signal Constructor ([facility]) . 02 Note: Note 02 The Pap smear is a screening test designed to aid in the detection of premalignant and malignant conditions of the uterine cervix. It is not a diagnostic procedure and should not be used as the sole means of detecting cervical cancer. Both false-positive and false-negative reports do occur. Test Methodology: Note 02 This liquid based ThinPrep(R) pap test was screened with the use of an image guided system. HPV Genotype Reflex Note 02 Criteria not met, HPV Genotype not performed. FLAG LEGEND: L-Low Normal,H-High Normal,LL-Alert Low,HH-Alert High <-Panic Low,>-Panic High,A-Abnormal,AA-Critical Abnormal Performed at: [address] [address] Bernie Brown MD, BRUSH-SPATULA CERVIX ENDOCERVIX CLINISYNCNOMS HealthcareHemoglobin A1Con 69-29-1045Fxmavzu [Mass/Vol]103 mg/dL [facility] Butler HospitalComment on above:Result Comment: The ADA and AACC recommend providing the estimated average glucose result to permit better patient understanding of their HBA1c result.Performed By: #### AST, ALT, BMP, CBC #### [facility] [address] [place] [address] [employer]ice: Kanika Lozada MD #### VD25, GLYHGB #### [facility] [address] [place] [address] [employer]ice: Amador Awan MDHbA1c (Bld) [Mass fraction]5.2 %Normal4.0-6.0 [facility] For RehabilitationComment on above:Performed By: #### AST, ALT, BMP, CBC #### [address] [place] [address] [employer] App[employer]ice: Kanika Lozada MD #### MADONNA25, GLYHGB #### [facility] [place] [address] [employer] Apprentice: Amador Awan MDAWeisman Children's Rehabilitation Hospital [id number] [Catalytic activity/Vol]14 U/L10 - 35 U/LBon SecMagruder Memorial HospitalALT [Catalytic activity/Vol]14 U/LNormal 10-35[facility] For RehabilitationComment on above:Performed By: #### AST, ALT, BMP, CBC #### [address] [place] [address] [employer] App[employer]ice: Kanika Lozada MD #### VD25, GLYHGB #### [address] [address] [employer]ice: Amador Awan MDAThree [facility] [[email or web address]] 40-24-3143PAK [Catalytic activity/Vol]21 U/L10 - 35 U/LBon [facility] HospitalAST [Catalytic activity/Vol]21 U/LNormal 10-35[facility] RehabilitationComment on above:Performed By: #### AST, ALT, BMP, CBC #### [address] [place] [address] [employer] App[employer]ice: Kanika Lozada MD #### VD25, GLYHGB #### [address] [address] [employer]ice: Beau Haywood Metabolic Panelon 71-58-8533Jcept gap [Moles/Vol]12 mmol/L9 - 16 mmol/LBon [facility] HealthCalcium [Mass/Vol]9.4 mg/dL8.6 - 10.4 mg/dLBon [facility] HealthChloride [Moles/Vol]104 mmol/L98 - 107 mmol/LBon [facility] HealthCO2 [Moles/Vol]24 mmol/L20 - 31 mmol/LBon [facility] HospitalCreatinine [Mass/Vol]0.8 mg/dL0.50 - 0.90 mg/dLBon [facility] HealthEst, Glom Filt Rate- PINFBon [facility] HospitalComment on above: These results are not intended [...] therapy that affects renal tubular secretion. Glucose [Mass/Vol]83 mg/dL74 - 99 mg/dLBon [facility] HealthPotassium [Moles/Vol]4.1 mmol/L3.7 - 5.3 mmol/LBon [facility] HospitalSodium [Moles/Vol] 140 mmol/L136 - 145 mmol/LBon [facility] HospitalUrea nitrogen [Mass/Vol]11 mg/dL6 - 20 mg/dLBon [facility] HospitalUrea nitrogen/Creatinine [Mass ratio]14 mg/mg9 - 20Bon [facility] HospitalBasic Metabolic Profon 83-77-1342Qtzpd gap [Moles/Vol]12 mmol/LNormal9-16[facility] For RehabilitationComment on above:Performed By: #### AST, ALT, BMP, CBC #### [facility] [address] [place] [address] [employer]ice: Kanika Lozada MD #### VD25, GLYHGB #### [facility] [address] [place] [address] [employer] App[employer]ice: Amador Awan MDBUN/CRE Yrwtt71Gmahjk3-95Ehiqq [facility] Comment on above:Performed By: #### AST, ALT, BMP, CBC #### [address] [place] [id number] [employer]ice: Kanika Lozada MD #### VD25, GLYHGB #### [address] [id number] [employer] Apprentice: JEFF Haywoodalcium [Mass/Vol]9.4 mg/dLNormal8.6-10.4[facility] For RehabilitationComment on above:Performed By: #### AST, ALT, BMP, CBC #### [address] [place] [id number] [employer]ice: Kanika Lozada MD #### VD25, GLYHGB #### [place] [id number] [employer] Apprentice: JEFF Haywoodhloride [Moles/Vol]104 mmol/PRwcljz99-321MjngtChildren'S Hospital For RehabilitationComment on above:Performed By: #### AST, ALT, BMP, CBC #### [address] [place] [id number] [employer] Apprentice: Kanika Lozada MD #### VD25, GLYHGB #### [place] [id number] [employer] App[employer]ice: JEFF HaywoodO2 [Moles/Vol]24 mmol/BYjasxw69-75SertyChildren'S Hospital For RehabilitationComment on above:Performed By: #### AST, ALT, BMP, CBC #### [address] [place] [id number] [employer]ice: Kanika Lozada MD #### VD25, GLYHGB #### [address] [id number] [employer] Apprentice: JEFF Haywoodreatinine [Mass/Vol]0.8 mg/dLNormal0.50-0.90 [facility] For RehabilitationComhelen devos children's hospital on above:Performed By: #### AST, ALT, BMP, CBC #### [address] [place] [address] [employer] Apprentice: Kanika Lozada MD #### VD25, GLYHGB #### [address] [id number] [employer]ice: Amador Awan MDGFR/1.73 sq M.predicted among non-blacks MDRD (S/P/Bld) [Vol rate/Area]mL/min/{1.73_m2}Normal>60[facility] For RehabilitationComhelen devos children's hospital on above:Result Comment: These results are not intended for [...] or following therapy that affects renal tubular secretion.Performed By: #### AST, ALT, BMP, CBC #### [address] [place] [address] [employer] App[employer]ice: Kanika Lozada MD #### VD25, GLYHGB #### [address] [id number] [employer]ice: Amador Awan MDGlucose [Mass/Vol]83 mg/vBAdfltz05-56SnfdeProMedica Flower Hospital on above:Performed By: #### AST, ALT, BMP, CBC #### [address] [place] [address] [employer] Apprentice: Kanika Lozada MD #### VD25, GLYHGB #### [address] [id number] [employer] Apprentice: XIMENA Haywoodotassium [Moles/Vol]4.1 mmol/LNormal3.7-5.3 [facility] For RehabilitationComment on above:Performed By: #### AST, ALT, BMP, CBC #### [address] [place] [address] [employer] Apprentice: Kanika Lozada MD #### VD25, GLYHGB #### [place] [address] [place], [place] [address] [employer] Apprentice: JAS Haywoododium [Moles/Vol]140 mmol/JMvjers713-497FevgwChildren'S Hospital For RehabilitationComment on above:Performed By: #### AST, ALT, BMP, CBC #### [address] [place] [address] [employer] Apprentice: Kanika Lozada MD #### VD25, GLYHGB #### [place] [address] [place], [place] [address] [employer] Apprentice: Amador Awan MDUrea nitrogen [Mass/Vol]11 mg/dLNormal6-20[facility] For RehabilitationComment on above:Performed By: #### AST, ALT, BMP, CBC #### [address] [place] [address] [employer] Apprentice: Kanika Lozada MD #### VD25, GLYHGB #### [address] [id number] [employer] Apprentice: JEFF Haywoodvida 20-36-2858Vwzzgviaadn distribution width (RBC) [Ratio]12.1 %11.8 - 14.4 %Bon [facility] HospitalHematocrit (Bld) [Volume fraction]37.8 %36.3 - 47.1 %[facility] CenterHemoglobin (Bld) [Mass/Vol] 12.7 g/dL11.9 - 15.1 g/dLBon [facility] (RBC) [Entitic mass]30.5 pg 25.2 - 33.5 pgBon Secours Mercy HealthMCHC (RBC) [Mass/Vol]33.6 g/dL28.4 - 34.8 g/dLBon [facility] HospitalMCV (RBC) [Entitic vol]90.9 fL82.6 - 102.9 fLCarilion New River Valley Medical CenterNucleated RBC/100 WBC (Bld) [Ratio]0 %0.0 per 100 WBCCarilion New River Valley Medical CenterPlatelet mean volume (Bld) [Entitic vol]8.5 fL8.1 - 13.5 fL Bon [facility] HospitalPlatelets (Bld) [#/Vol]318 10*3/uLBon [facility] HospitalRBC (Bld) [#/Vol]4.16 10*6/uL3.95 - 5.11 m/uLCarilion New River Valley Medical CenterWBC other (Bld) [#/Vol]5.6Bon [facility] Erythrocyte distribution width (RBC) [Ratio]12.1 %Hweuxc05.8-14.4[facility] For RehabilitationComment on above:Performed By: #### AST, ALT, BMP, CBC #### [address] [place] [address] [employer] Apprentice: Kanika Lozada MD #### VD25, GLYHGB #### [facility] [address] [place] [address] [employer] Apprentice: Amador Awan MDHematocrit (Bld) [Volume fraction]37.8 %Normal 36.3-47.1MChildren's Hospital for RehabilitationComment on above:Performed By: #### AST, ALT, BMP, CBC #### [address] [place] [phone] [employer] Apprentice: Kanika Lozada MD #### VD25, GLYHGB #### [facility] [address] [place], [place] [id number] [employer] Apprentice: Amador Awan MDHemoglobin (Bld) [Mass/Vol]12.7 g/dLNormal 11.9-15.1MChildren's Hospital for RehabilitationComment on above:Performed By: #### AST, ALT, BMP, CBC #### [address] [place] [address] [employer] Apprentice: Kanika Lozada MD #### VD25, GLYHGB #### [address] [id number] [employer] Apprentice: HENRIETTA HaywoodCH (RBC) [Entitic mass]30.5 zsGyebdn25.2-33.5 [facility] HospitalComment on above:Performed By: #### AST, ALT, BMP, CBC #### [address] [place] [address] [employer] Apprentice: Kanika Lozada MD #### VD25, GLYHGB #### [address] [id number] [employer] Apprentice: JESSICA HaywoodC (RBC) [Mass/Vol]33.6 g/gLJnuuzy60.4-34.8 [facility] HospitalComment on above:Performed By: #### AST, ALT, BMP, CBC #### [address] [place] [address] [employer] Apprentice: Kanika Lozada MD #### VD25, GLYHGB #### [address] [id number] [employer] Apprentice: HENRIETTA HaywoodCV (RBC) [Entitic vol]90.9 cFCgcaxi02.6-102.9 [facility] HospitalComment on above:Performed By: #### AST, ALT, BMP, CBC #### [address] [place] [address] [employer] Apprentice: Kanika Lozada MD #### VD25, GLYHGB #### [address] [id number] [employer] Apprentice: Amador Awan MDNRBC Automated0.0 per 100 WBCNormal0.0[facility] For RehabilitationComment on above:Performed By: #### AST, ALT, BMP, CBC #### [address] [place] [address] [employer] Apprentice: Kanika Lozada MD #### VD25, GLYHGB #### [place] [address] [employer] Apprentice: Sim Haywood mean volume (Bld) [Entitic vol]8.5 fL Normal8.1-13.5[facility] Hospital For RehabilitationComment on above:Performed By: #### AST, ALT, BMP, CBC #### [address] [place] [address] [employer] Apprentice: Kanika Lozada MD #### EL, GLYHGB #### [place] [address] [employer] Apprentice: Kalli Haywood (Bld) [#/Vol]318 10*3/hQFkpcfc093-756 [facility] For RehabilitationComment on above:Performed By: #### AST, ALT, BMP, CBC #### [address] [place] [address] [employer] Apprentice: Kanika Lozada MD #### MADONNA25, GLYHGB #### [place] [address] [employer] Apprentice: Amador Awan MDRBC (Bld) [#/Vol]4.16 10*6/uLNormal3.95-5.11 [facility] For RehabilitationComhelen devos children's hospital on above:Performed By: #### AST, ALT, BMP, CBC #### [address] [place] [id number] [employer] Apprentice: Kanika Lozada MD #### EL, GLYHGB #### [address] [place] [address] [employer] Apprentice: Amador Awan MDWBC (Bld) [#/Vol]5.6 10*3/uLNormal3.5-11.3[facility] HospitalComment on above:Performed By: #### AST, ALT, BMP, CBC #### [facility] [address] [place], [place] [id number] [employer] Apprentice: Kanika Lozada MD #### VD25, GLYHGB #### [facility] [address] [place] [address] [employer] Apprentice: Amador Awan MDLipid Panelon 07-77-9012Woldiinpiho [Mass/Vol] 196 mg/dL0 - 199 mg/dLBon [facility] HospitalComment on above: Cholesterol Guidelines: <200 Desirable 200-240 Borderline >240 Undesirable Cholesterol in HDL [Mass/Vol]53 mg/dL40 - PINF mg/dLBon [facility] [employer] Comment on above: HDL Guidelines: <40 Undesirable 40-59 Borderline >59 Desirable Cholesterol in LDL [Mass/Vol]121 mg/dLHigh0 - 100 mg/dLBon [facility] [employer] Comment on above: LDL Guidelines: <100 Desirable 100-129 Near to/above Desirable 130-159 Borderline >159 Undesirable Direct (measured) LDL and calculated LDL are not interchangeable tests. Cholesterol in VLDL [Mass/Vol]22 mg/dL1 - 30 mg/dLBon [facility] [employer] Cholesterol.total/Cholesterol in HDL [Mass ratio]3.7 {ratio}NINF - 5.0[facility] trbo GmbHInterpretation and review of laboratory resultsAbnormalSentara Careplex Hospital [employer]. [employer] GmbHTriglyceride [Mass/Vol]108 mg/dLNINF - 150 mg/dLBon [facility] [employer] Berger HospitalComment on above: Triglyceride Guidelines: <150 Desirable 150-199 Borderline 200-499 High >499 Very high Based on AHA Guidelines for fasting triglyceride, July 2012. [facility] [employer] tr[employer] GmbHLipid Profileon 06-45-2652Zwcnxujrnxj [Mass/Vol]196 mg/dLNormal0-199MerMidState Medical CenterComment on above:Result Comment: Cholesterol Guidelines: <200 Desirable 200-240 Borderline >240 UndesirablePerformed By: #### CP, CBC #### [address] [place], [place] 1005083 [employer]ice: Kanika Lozada MD #### GLYHGB #### [address] [id number] [employer]ice: Amador Awan MDCholesterol in HDL [Mass/Vol]53 mg/dLNormal>40 [facility] For RehabilitationComment on above:Result Comment: HDL Guidelines: <40 Undesirable 40-59 Borderline >59 DesirablePerformed By: #### CP, CBC #### [address] [place] 2784383 [employer]ice: Kanika Lozada MD #### GLYHGB #### [address] [id number] [employer] App[employer]ice: JEFF Haywoodholesterol in LDL [Mass/Vol]121 mg/dLHigh0-100 [facility] For RehabilitationComment on above:Result Comment: LDL Guidelines: <100 Desirable 100-129 Near to/above Desirable 130-159 Borderline >159 Undesirable Direct (measured) LDL and calculated LDL are not interchangeable tests.Performed By: #### CP, CBC #### [address] [place], [place] 1470983 [employer]ice: Kanika Lozada MD #### GLYHGB #### [facility] [employer] [address] [place] [address] [employer]ice: Amador Awan MDCholesterol in VLDL [Mass/Vol]22 mg/dLNormal1-30 [facility] For RehabilitationComment on above:Performed By: #### CP, CBC #### [address] [place], [place] 0472583 [employer]ice: Kanika Lozada MD #### GLYHGB #### [facility] [address] [place] [address] [employer] Apprentice: Margarita Haywood.total/Cholesterol in HDL [Mass ratio]3.7 {ratio}Normal<5.0[facility] For RehabilitationComment on above:Performed By: #### CP, CBC #### [address] [place], [place] 7606683 [employer]ice: Kanika Lozada MD #### GLYHGB #### [address] [place] [address] [employer] App[employer]ice: Amador Awan MDTriglyceride [Mass/Vol]108 mg/dLNormal<150[facility] For RehabilitationComment on above:Result Comment: Triglyceride Guidelines: <150 Desirable 150-199 Borderline 200-499 High >499 Very high Based on AHA Guidelines for fasting triglyceride, July 2012.Performed By: #### HADLEY, CBC #### [address] [place] [address] [employer]ice: Kanika Lozada MD #### GLYHGB #### [address] [address] [employer]ice: Amador Awan MDNo [facility] [place] Information [id number] Gregory Healthcare CenterT3, [facility] 41-96-4645Uuvt T3 [Mass/Vol]2.46 pg/mL2.00 - 4.40 pg/mLVirgin[facility] T3 [Mass/Vol]2.46 pg/mLNormal 2.00-4.40[facility] For RehabilitationComment on above:Performed By: #### CP, CBC #### [address] [place] [address] [employer] App[employer]ice: Kanika Lozada MD #### GLYHGB #### [address] [place], [place] 8742108 [employer] App[employer]ice: Amador Awan MDT4, [facility] [id number] T4 [Mass/Vol]1.1 ng/dL 0.92 - 1.68 ng/dLBon [facility] Bryan HospitalTSHon 52-12-8080Wkxzfgzumwhvhk and review of laboratory resultsAbnormalSentara [facility] Qn4.63 m[IU]/L [facility] Doctors' HospitalThyroid Stim. Horm.on 08-69-4485Nyfsvnt Stim. Horm.4.63 uIU/mLHigh0.27-4.20[facility] Comment on above:Performed By: #### CP, CBC #### [facility] [address] [place] [address] [place] [address] [employer]ice: Kanika Lozada MD #### GLYHGB #### [address] 1657108 [employer] App[employer]ice: Amador Awan MDThyroxine, Freeon 40-59-1316Dvvjfzasd, Free1.1 ng/dLNormal0.92-1.68[facility] For RehabilitationComment on above:Performed By: #### CP, CBC #### [facility] [address] [place] [address] [place] [address] [employer] App[employer]ice: Kanika Lozada MD #### GLYHGB #### [address] [place] [address] [employer] Apprentice: Amador Awan MDVitamin D 25 Hydroxyon - hydroxyvitamin D3 [Mass/Vol]40.8 ng/mL30.0 - 100.0 ng/mLCarilion New River [facility] Medical [facility] Comment on above: Reference Range: Vitamin D status Range Deficiency <20 ng/mL Mild Deficiency 20-30 ng/mL Sufficiency 30-100 ng/mL Toxicity >100 ng/mL [facility] Medical CenterVitamin D 25 OHon 13-20-9697Rtgcqzg D 25 OH40.8 ng/mL Stlutl32.0-100.0[facility] For RehabilitationComment on above:Result Comment: Reference Range: Vitamin D status Range Deficiency <20 ng/mL Mild Deficiency 20-30 ng/mL Sufficiency 30-100 ng/mL Toxicity >100 ng/mLPerformed By: #### AST, ALT, BMP, CBC #### [facility] [address] [place] [address] [employer] App[employer]ice: Kanika Lozada MD #### VD25, GLYHGB #### [employer] [address] [place] [address] [employer] Apprentice: CRISTIANA Haywood,APTIMA HPV,AGE GDLNon 30-14-8341EAG GDLN ACOG TESTINGNote.NOMS HealthcareComment on above:TESTS RESULT FLAG UNITS REF RANGE LAB Clinician Provided Cytology Information Source.............Cervix;Endocervix No. of containers..01 ThinPrep Vial Age Algo ACOG Isabelle... 30-65 01 FLAG LEGEND: L-Low Normal,H-High Normal,LL-Alert Low,HH-Alert High <-Panic Low,>-Panic High,A-Abnormal,AA-Critical Abnormal Performed at: 01 =G [address] [address] Bernie Brown MD, HPV APTIMANegativeNegativeNOMS HealthcareComment on above:This nucleic acid amplification test detects fourteen high- risk HPV types (16,18,31,33,35,39,45,51,52,56,58,59,66,68) without differentiation. Performed at: = - [facility] [id number] [employer]ice: Bernie Brown MD, Phone: [phone] Performed at: - [facility], [place] [id number] [employer]ice: Bernie Brown MD, Phone: [phone] IGP, APTIMA HPV, RFX 16/18,45Note.NOMS HealthcareComment on above:TESTS RESULT FLAG UNITS REF RANGE LAB DIAGNOSIS: 02 NEGATIVE FOR INTRAEPITHELIAL LESION OR MALIGNANCY. CELLULAR CHANGES ASSOCIATED WITH INFLAMMATION ARE PRESENT. Specimen adequacy: 02 Satisfactory for evaluation. No endocervical component is identified. Performed by: Dante Barnes, Refractory Worker (ASC) . 02 Note: Note 02 The Pap smear is a screening test designed to aid in the detection of premalignant and malignant conditions of the uterine cervix. It is not a diagnostic procedure and should not be used as the sole means of detecting cervical cancer. Both false-positive and false-negative reports do occur. Test Methodology: Note 02 This liquid based ThinPrep(R) pap test was screened with the use of an image guided system. HPV Genotype Reflex Note 02 Criteria not met, HPV Genotype not performed. FLAG LEGEND: L-Low Normal,H-High Normal,LL-Alert Low,HH-Alert High <-Panic Low,>-Panic High,A-Abnormal,AA-Critical Abnormal Performed at: 02 [facility] [address] [place] [address] Bernie Brown MD, BRUSH-SPATULA CERVIX ENDOCERVIX [facility] TOMOSYNTHESIS SCREENING BIon [phone] [address] Mammography Report Signed Patient: SUSAN BLACKWELL MR#: [id number] : 1980 Acct:[id number] Age/Sex: 43 / F ADM Date: 05/20/24 Loc: MAMMO Attending Dr: Trav Mccauley D.O. Ordering Physician: Trav Mccauley D.O. Results: Date of Service: 05/20/24 Follow Up: Procedure(s): MM tomosynthesis screening BI Accession Number(s): [id number] cc: Trav Mccauley D.O.; Physician,Non-Staff Meredith Patient Name: SUSAN BLACKWELL MR#: [id number] : 1980 Exam Date: 05/20/2024 Ordering Doctor: DR Trav Mccauley . RADIOLOGY REPORT PROCEDURE: MM TOMOSYNTHESIS SCREENING BI COMPARISON: MG MAMM SCREEN 3D LEIF CAD, 06/23/2022. MG MAMM SCREEN 3D LEIF CAD, 06/24/2021. INDICATIONS: Screening Calculator Name NCI Breast Cancer Risk Assessment Tool 5 Year Breast Cancer Risk 0.90% Lifetime Breast Cancer Risk 12.10% Personal Breast Cancer No Personal Ovarian Cancer No Treatments None Family Cancers None LOCATION: The [facility] BREAST COMPOSITION: The breasts are extremely dense, which lowers the sensitivity of mammography. FINDINGS: DIAGNOSTIC CATEGORY 1--NEGATIVE. RIGHT BREAST: No significant suspicious finding. No significant change has occurred. LEFT BREAST: No significant suspicious finding. No significant change has occurred. RECOMMENDATIONS: ROUTINE MAMMOGRAM AND CLINICAL EVALUATION IN 12 MONTHS. PLEASE NOTE: A NORMAL MAMMOGRAM DOES NOT EXCLUDE THE POSSIBILITY OF BREAST CANCER. A CLINICALLY SUSPICIOUS PALPABLE LUMP SHOULD BE BIOPSIED. Dictated by: Elbert Yang M.D. on 05/20/2024 at 16:21 Approved by: Elbert Yang M.D. on 05/20/2024 at 16:23 Dictated By: Elbert Yang M.D. Signed By: 05/20/241623 DD/ 22 TD/TT: Power Plant Manager:MIKAYLAHRadiologclinton, Radiologist, - 05/20/2024 [place] [address] Mammography Report Signed Patient: SUSAN BLACKWELL MR#: [id number] : 1980 Acct:[id number] Age/Sex: 43 / F ADM Date: 05/20/24 Loc: MAMMO Attending Dr: Trav Mccauley D.O. Ordering Physician: Trav Mccauley D.O. Results: Date of Service: 05/20/24 Follow Up: Procedure(s): MM tomosynthesis screening BI Accession Number(s): [id number] cc: Trav Mccauley D.O.; Physician,Non-Staff Meredith Patient Name: SUSAN BLACKWELL MR#: [id number] : 1980 Exam Date: 05/20/2024 Ordering Doctor: DR Trav Mccauley . RADIOLOGY REPORT PROCEDURE: MM TOMOSYNTHESIS SCREENING BI COMPARISON: MG MAMM SCREEN 3D LEIF CAD, 06/23/2022. MG MAMM SCREEN 3D LEIF CAD, 06/24/2021. INDICATIONS: Screening Calculator Name NCI Breast Cancer Risk Assessment Tool 5 Year Breast Cancer Risk 0.90% Lifetime Breast Cancer Risk 12.10% Personal Breast Cancer No Personal Ovarian Cancer No Treatments None Family Cancers None LOCATION: The [facility] BREAST COMPOSITION: The breasts are extremely dense, which lowers the sensitivity of mammography. FINDINGS: DIAGNOSTIC CATEGORY 1--NEGATIVE. RIGHT BREAST: No significant suspicious finding. No significant change has occurred. LEFT BREAST: No significant suspicious finding. No significant change has occurred. RECOMMENDATIONS: ROUTINE MAMMOGRAM AND CLINICAL EVALUATION IN 12 MONTHS. PLEASE NOTE: A NORMAL MAMMOGRAM DOES NOT EXCLUDE THE POSSIBILITY OF BREAST CANCER. A CLINICALLY SUSPICIOUS PALPABLE LUMP SHOULD BE BIOPSIED. Dictated by: Elbert Yang M.D. on 05/20/2024 at 16:21 Approved by: Elbert Yang M.D. on 05/20/2024 at 16:23 Dictated By: Elbert Yang M.D. Signed By: 05/20/241623 DD/ 22 TD/TT: Power Plant Manager: [facility] HospitalRadiology Study observation (narrative)[facility] TOMOSYNTHESIS SCREENING BIOrdered By: Radiologist Radiology on 16-72-2797[facility] Work Phone: T3, Freeon 34-14-2005Aiwf T3 [Mass/Vol]2.50 pg/mL Normal2.00-4.40[facility] For RehabilitationComment on above:Performed By: #### CP, CBC #### [address] [place] [address] [employer]ice: Kanika Lozada MD #### GLYHGB #### [address] [id number] [employer] App[employer]ice: Amador Awan MDThyroxine, [facility] 90-34-7591Nrxjtzome, Free1.1 ng/dLNormal0.92-1.68[facility] Hospital For RehabilitationComment on above:Performed By: #### HADLEY, CBC #### [address] [place] [address] [employer] Apprentice: Kanika Lozada MD #### GLYHGB #### [address] [id number] [employer] Apprentice: Amador Awan [facility] 02-85-7428Maxnqnmbkjl distribution width (RBC) [Ratio]11.9 %Vwinyf82.8-14.4[facility] Hospital For RehabilitationComment on above: Performed By: #### HADLEY, CBC #### [address] [place] [address] [employer] Apprentice: Kanika Lozada MD #### GLYHGB #### [address] 7183308 [employer] Apprentice: Amador Awan MDHematocrit (Bld) [Volume fraction]37.5 %Normal 36.3-47.1MChildren's Hospital for RehabilitationComment on above:Performed By: #### CP, CBC #### [address] [place] 2784383 [employer]ice: Kanika Lozada MD #### GLYHGB #### [address] [phone] [employer] Apprentice: Amador Awan MDHemoglobin (Bld) [Mass/Vol]12.6 g/dLNormal 11.9-15.1MChildren's Hospital for RehabilitationComment on above:Performed By: #### CP, CBC #### [address] [place] 2784383 [employer] App[employer]ice: Kanika Lozada MD #### GLYHGB #### [place] [address] [employer] Apprentice: HENRIETTA HaywoodCH (RBC) [Entitic mass]30.6 gqUuwrst51.2-33.5 [facility] For RehabilitationComment on above:Performed By: #### CP, CBC #### [address] [place] 2784383 [employer] Apprentice: Kanika Lozada MD #### GLYHGB #### [place] [address] [employer] Apprentice: HENRIETTA HaywoodCHC (RBC) [Mass/Vol]33.6 g/oOUzauqp21.4-34.8 [facility] For RehabilitationComment on above:Performed By: #### CP, CBC #### [address] [place] 9489583 [employer] Apprentice: Kanika Lozada MD #### GLYHGB #### [address] [place] [address] [employer] Apprentice: HENRIETTA HaywoodCV (RBC) [Entitic vol]91.0 zHLkkbin16.6-102.9 [facility] For RehabilitationComhelen devos children's hospital on above:Performed By: #### CP, CBC #### [address] [place], [place] 3643483 [employer] Apprentice: Kanika Lozada MD #### GLYHGB #### [address] [address] [employer] Apprentice: Amador Awan MDNRBC Automated0.0 per 100 WBCNormal0.0[facility] For RehabilitationComhelen devos children's hospital on above:Performed By: #### CP, CBC #### [address] [place], [place] 2337283 [employer] Apprentice: Kanika Lozada MD #### GLYHGB #### [address] [address] [employer] Apprentice: Shawanda Haywoodtelet mean volume (Bld) [Entitic vol]8.9 fL Normal8.1-13.5[facility] For RehabilitationComhelen devos children's hospital on above:Performed By: #### CP, CBC #### [address] [place], [place] 6769583 [employer] Apprentice: Kanika Lozada MD #### GLYHGB #### [address] [address] [employer] Apprentice: XIMENA Hayowodlatelets (Bld) [#/Vol]291 10*3/nWXkyfyz729-747 [facility] For RehabilitationComhelen devos children's hospital on above:Performed By: #### CP, CBC #### [address] [place] [address] [employer] Apprentice: Kanika Lozada MD #### GLYHGB #### [address] [address] [employer] Apprentice: GEORGE HaywoodBC ([facility]) [#/Vol]4.12 10*6/uLNormal3.95-5.11 [facility] For RehabilitationComment on above:Performed By: #### CP, CBC #### [address] [place] [address] [employer] Apprentice: Kanika Lozada MD #### GLYHGB #### [address] [address] [employer] Apprentice: Amador Awan MDW (d) [#/Vol]5.3 10*3/uLNormal3.5-11.3MMercy Health – The Jewish Hospital HospitalComment on above:Performed By: #### CP, CBC #### [address] [place] 2784383 [employer] Apprentice: Kanika Lozada MD #### GLYHGB #### [address] [address] [employer] Apprentice: JEFF Haywoodlone peak hospital Metabolic Profon 52-02-4164Ccriwug [Mass/Vol]4.4 g/dLNormal3.5-5.2MMercy Health – [facility] Hospital HospitalComment on above:Performed By: #### CP, CBC #### [address] [place] 2784383 [employer] Apprentice: Kanika Lozada MD #### GLYHGB #### [address] [address] [employer] Apprentice: Amador Awan MDAlbumin/Glob Ratio1.7Fzgkwu4.0-2.5[facility] Hospital For RehabilitationComment on above:Performed By: #### CP, CBC #### [address] [place], [place] 7097483 [employer] Apprentice: Kanika Lozada MD #### GLYHGB #### [address] [place] [address] [employer] Apprentice: Clau Haywood Phos91 U/NHyirte84-464Ybxdi Hartford HospitalComment on above:Performed By: #### CP, CBC #### [address] [place], [place] 4574883 [employer] Apprentice: Kanika Lozada MD #### GLYHGB #### [address] [address] [employer] Apprentice: Amador Awan MDALT [Catalytic activity/Vol]13 U/LNormal5-33 [facility] For RehabilitationComment on above:Performed By: #### HADLEY, CBC #### [address] [place], [place] 0349783 [employer] Apprentice: Kanika Lozada MD #### GLYHGB #### [address] [address] [employer] Apprentice: Jani Haywood gap [Moles/Vol]8 mmol/LLow9-17Pro[facility]ant Hospitalcy [facility] HospitalComment on above:Performed By: #### HADLEY, CBC #### [address] [place] [address] [employer] Apprentice: Kanika Lozada MD #### GLYHGB #### [address] [address] [employer] Apprentice: Amador Awan MDAST [Catalytic activity/Vol]18 U/LNormal<32[facility] Hospitalcy [facility] HospitalComment on above:Performed By: #### CP, CBC #### [address] [place] [address] [employer] Apprentice: Kanika Lozada MD #### GLYHGB #### [address] [address] [employer] Apprentice: Amador Awan MDBilirubin [Mass/Vol]0.2 mg/dLLow0.3-1.2MChildren's Hospital for RehabilitationComment on above:Performed By: #### CP, CBC #### [address] [place] [address] [employer] Apprentice: Kanika Lozada MD #### GLYHGB #### [address] [address] [employer] Apprentice: Amador Awan MDBUN/CRE Ckvjx95Imfi2-88AbylfChildren'S Hospital For Rehabilitation Comment on above:Performed By: #### CP, CBC #### [address] [place] 2784383 [employer] Apprentice: Kanika Lozada MD #### GLYHGB #### [address] [address] [employer] Apprentice: JEFF Haywoodalcium [Mass/Vol]9.1 mg/dLNormal8.6-10.4[facility] Hospital For RehabilitationComment on above:Performed By: #### CP, CBC #### [address] [place] 2784383 [employer] Apprentice: Kanika Lozada MD #### GLYHGB #### [address] [address] [employer] Apprentice: JEFF Haywoodhloride [Moles/Vol]104 mmol/TOvjyhm14-259KqvatChildren'S Hospital For RehabilitationComment on above:Performed By: #### CP, CBC #### [address] [place] [address] [employer] Apprentice: Kanika Lozada MD #### GLYHGB #### [address] [address] [employer] Apprentice: Amador Awan MDCO2 [Moles/Vol]26 mmol/LYqsbcx15-22HizfjChildren'S Hospital For RehabilitationComment on above:Performed By: #### CP, CBC #### [address] [place] [address] [employer] Apprentice: Kanika Lozada MD #### GLYHGB #### [facility] [address] [place], [place] 2676908 [employer] Apprentice: JEFF Haywoodreatinine [Mass/Vol]0.8 mg/dLNormal0.5-0.9[facility] Hospital For RehabilitationComment on above:Performed By: #### HADLEY, CBC #### [address] [place] [address] [employer] Apprentice: Kanika Lozada MD #### GLYHGB #### [address] [address] [place], [place] 6893408 [employer] Apprentice: Amador Awan MDGFR/1.73 sq M.predicted among non-blacks MDRD (S/P/Bld) [Vol rate/Area]mL/min/{1.73_m2}Normal>60[facility] Hospital For RehabilitationComment on above:Result Comment: These results are not intended for [...] or following therapy that affects renal tubular secretion.Performed By: #### HADLEY, CBC #### [address] [place] [address] [employer] Apprentice: Kanika Lozada MD #### GLYHGB #### [facility] [address] [place], [place] 3372208 [employer] Apprentice: Amador Awan MDGlucose [Mass/Vol]84 mg/yRDcdbus40-85Ufwlr Tiffin HospitalComment on above:Performed By: #### HADLEY, CBC #### [address] [place], [place] 8215683 [employer] Apprentice: Kanika Lozada MD #### GLYHGB #### [address] 1965208 [employer] Apprentice: Amador Awan MDPotassium [Moles/Vol]4.5 mmol/LNormal3.7-5.3 [facility] For RehabilitationComment on above:Performed By: #### HADLEY, CBC #### [address] [place] 2784383 [employer] Apprentice: Kanika Lozada MD #### GLYHGB #### [address] 0226108 [employer] Apprentice: Amador Awan MDProtein [Mass/Vol]7.1 g/dLNormal6.4-8.3MercTriHealth McCull[facility] Hospital HospitalComment on above:Performed By: #### HADLEY, CBC #### [address] [place] 0086383 [employer] Apprentice: Kanika Lozada MD #### GLYHGB #### [place] [address] [employer] Apprentice: JAS Haywoododium [Moles/Vol]138 mmol/KWyehdw610-608YioqmChildren'S Hospital For RehabilitationComment on above:Performed By: #### HADLEY, CBC #### [address] [place] 2784383 [employer] Apprentice: Kanika Lozada MD #### GLYHGB #### [address] [address] [employer] Apprentice: Amador Awan MDUrea nitrogen [Mass/Vol]17 mg/dLNormal6-20[facility] For RehabilitationComment on above:Performed By: #### HADLEY, CBC #### [address] [place] 2784383 [employer] Apprentice: Kanika Lozada MD #### GLYHGB #### [facility] [address] [place], [place] 2595008 [employer] Apprentice: Amador Awan MDHemoglobin A1Con 72-07-6140Nhreyip [Mass/Vol]103 mg/dLNormalChildren'S Hospital For RehabilitationComment on above:Result Comment: The ADA and AACC recommend providing the estimated average glucose result to permit better patient understanding of their HBA1c result.Performed By: #### CP, CBC #### [facility] [address] [place] [address] Dr. [place], [place] 6529683 [employer] Apprentice: Kanika Lozada MD #### GLYHGB #### [address] [address] [employer] Apprentice: Amador Awan MDHbA1c (Bld) [Mass fraction]5.2 %Normal4.0-6.0 [facility] For RehabilitationComment on above:Performed By: #### HADLEY, CBC #### [address] [place], [place] 9595483 [employer] Apprentice: Kanika Lozada MD #### GLYHGB #### [address] [address] [employer] Apprentice: Amador Awan MDLipid Profileon 89-65-2212Buhlsdvefpv [Mass/Vol] 205 mg/dLHigh0-199[facility] Hospital For RehabilitationComment on above:Result Comment: Cholesterol Guidelines: <200 Desirable 200-240 Borderline >240 UndesirablePerformed By: #### CP, CBC #### [facility] [address] [place] [address] Dr[address] [place], [place] 6025983 [employer] Apprentice: Kanika Lozada MD #### GLYHGB #### [address] [address] [place], [place] 7127608 [employer] Apprentice: JEFF Haywoodholesterol in HDL [Mass/Vol]51 mg/dLNormal>40 [facility] on above:Result Comment: HDL Guidelines: <40 Undesirable 40-59 Borderline >59 DesirablePerformed By: #### CP, CBC #### [address] [place], [place] 1819483 [employer] Apprentice: Kanika Lozada MD #### GLYHGB #### [address] [address] [employer] Apprentice: JEFF Haywoodholesterol in LDL [Mass/Vol]138 mg/dLHigh0-100 [facility] on above:Result Comment: LDL Guidelines: <100 Desirable 100-129 Near to/above Desirable 130-159 Borderline >159 Undesirable Direct (measured) LDL and calculated LDL are not interchangeable tests.Performed By: #### CP, CBC #### [address] [place], [place] 8837683 [employer] Apprentice: Kanika Lozada MD #### GLYHGB #### [address] [address] [employer] Apprentice: JEFF Haywoodholesterol in VLDL [Mass/Vol]16 mg/dLNormal [facility] on above:Performed By: #### CP, CBC #### [address] [place], [place] 0412983 [employer] Apprentice: Kanika Lozada MD #### GLYHGB #### [address] [address] [employer] Apprentice: JEFF Haywoodholestmendoza.total/Cholesterol in HDL [Mass ratio]4.0 {ratio}NormalTrinity Health System West Campus on above:Performed By: #### CP, CBC #### [address] [address] [place], [place] [id number] Rock Mason Apprentice: Kanika Lozada MD #### GLYHGB #### [address] [address] Rock Mason Apprentice: Amador Awan MDTriglyceride [Mass/Vol]80 mg/dLNormal<150Children'S Hospital For RehabilitationComment on above:Result Comment: Triglyceride Guidelines: <150 Desirable 150-199 Borderline 200-499 High >499 Very high Based on AHA Guidelines for fasting triglyceride, July 2012.Performed By: #### CP, CBC #### [address] [place] [address] Rock Mason Apprentice: Kanika Lozada MD #### GLYHGB #### [facility] [address] [place] [address] Rock Mason Apprentice: Amador Awan MDODESSA MEMORIAL [facility] w/reflex to FT4on 41-22-5656Elybpkc Stim. Horm.3.95 uIU/mLNormal0.30-5.00Children'S Hospital For RehabilitationComment on above:Performed By: #### TSHX #### [address] [place] [address] Rock Mason Apprentice: Kanika Lozada MDUS THYROIDon 01-91-3476Uzmxrfazfipss, hypervascular thyroid parenchyma with mild enlargement of the right thyroid lobe, findings that could be seen with thyroiditis or Graves disease. [facility] CONSOLIDATEDEXAMINATION: THYROID ULTRASOUND 02/08/2023 4:58 pm COMPARISON: None HISTORY: ORDERING SYSTEM PROVIDED HISTORY: Arcelia's disease TECHNOLOGIST PROVIDED HISTORY: This procedure can be scheduled via [employer]. Access your We[employer] account by visiting [employer]. FINDINGS: Right thyroid lobe: 6.0 cm x 3.0 cm x 2.0 cm Left thyroid lobe: 4.4 cm x 1.5 cm x 1.8 cm Isthmus: 0.2 cm THYROID GLAND: Mild enlargement of the right lobe with otherwise normal size. Moderately heterogeneous echogenicity and echotexture. Markedly increased vascularity. NODULES: None visualized. CERVICAL LYMPHADENOPATHY: None visualized. [facility] Saran Lyman MD - 02/09/2023 EXAMINATION: THYROID ULTRASOUND 02/08/2023 4:58 pm COMPARISON: None HISTORY: ORDERING SYSTEM PROVIDED HISTORY: Arcelia's disease TECHNOLOGIST PROVIDED HISTORY: This procedure can be scheduled via [employer]. Access your [employer] account by visiting [employer]. FINDINGS: Right thyroid lobe: 6.0 cm x [...] be seen with thyroiditis or Graves disease. [employer] Phone: us THYROIDOrdered By: Saran Baez on 03-51-6824ZLL Domain Apps Phone: us THYROIDon 45-21-0939Ntthlppts Study observation (narrative)[employer] Phone: T4, Freeon 85-98-2058Dhtn T4 [Mass/Vol]0.98 ng/dL0.93 - 1.70 ng/dLBON Advanced ICU CareTSHon 93-52-6075TVZ Qn4.70 m[IU]/LBON Advanced ICU CareXR finger LT 3rd digiton 06-51-3566KB finger LT 3rd digitCHILDREN'S HOSPITAL [place] [address] XRay Report Signed Patient: Susan Blackwell MR#: [id number] : 1980 Acct:[id number] Age/Sex: 42 / F ADM Date: 01/04/23 Loc: XDUCLY Room: Type: [facility] Attending Dr: Shanel PAULA Copies to: NISA [...] Primo Gregory M.D.01/04/2023 5:51 PM Dictation Location: [place] [address] Transcribed By: [facility] 01/04/231750 Dictated By: Primo Gregory II, MD 01/04/231749 Signed By: 01/04/231750[facility] - TrumbullXR finger LT 3rd digit [facility] [employer] Other XR finger LT 3rd digitUnityPoint Health-Methodist West [facility] [employer] Other XR finger LT 3rd [id number] [place] [address] [employer] Other xr finger LT 3rd digitSAndrew Ville [id number] Charity[employer] Other XR finger LT 3rd digitXRBaptist Memorial Hospital Charity[employer]zz Other xr finger LT 3rd digitSCitizens Memorial Healthcare ZipMatch Other xr finger LT 3rd digitPatient: Susan Blackwell MR#: [id number] ZipMatch Other XR finger LT 3rd digitDOB: 1980 Acct:[id number] [place] ZipMatch Other xr finger LT 3rd digitAge/Sex: 42 / F ADM Date: 01/04/23[place] ZipMatch Other xr finger LT 3rd digitLoc: XDUCLY Room: Type: [facility] ZipMatch Other XR finger LT 3rd digitAttending Dr: Shanel Ventura EMERGENCY TELECOMMUNICATIONS DISPATCHER-C STARFACE Other XR finger LT 3rd digitCopies to: ISABEL CallahanC STARFACE Other XR finger LT 3rd digitOrdering Provider: LAYNE Callahansainte genevieve [facility] ZipMatch Other XR finger LT 3rd digitDate of Service: 01/04/23[place] ZipMatch Other XR finger LT 3rd digitAccession #: [id number]) XR/XR finger LT 3rd digit: M79.645[place] ZipMatch Other XR finger LT 3rd digitXR finger LT 3rd digit 01/04/2023 5:35 [facility] HOSPITALExelis Other XR finger LT 3rd digitSIGNS AND SYMPTOMS: Injury to left third digit with flexion deformityUlterius Technologies Other XR finger LT 3rd digitPROTOCOL: Frontal, lateral, and oblique radiographs of the left third digitRanken Jordan Pediatric Specialty HospitalStreetHub Other XR finger LT 3rd digitCOMPARISON: NoneUlterius Technologies Other XR finger LT 3rd digitFINDINGS:STARFACE Other XR finger LT 3rd digitThere is no evidence of fracture. No dislocation or subluxation. There is a focus flexion deformityUlterius Technologies Other XR finger LT 3rd digitsuspicious for tendon injury at the distal interphalangeal joint of the third digit. No accompanyingUlterius Technologies Other XR finger LT 3rd digitsoft tissue swelling.STARFACE Other XR finger LT 3rd digitORDER #: [id number] XR/XR finger LT 3rd digitNoUlterius Technologies Other XR finger LT 3rd digitIMPRESSION:STARFACE Other xr finger LT 3rd digitThere is no evidence of fracture.STARFACE Other xr finger LT 3rd digitThere is a focus flexion deformity suspicious for tendon injury at the distal interphalangeal jointMardela Springs ZipMatch Other XR finger LT 3rd digitof the third digit.STARFACE Other xr finger LT 3rd digitImpression dictated by: Primo Gregory M.D.01/04/2023 5:51 PMNsainte genevieve county memorial hospital ZipMatch Other XR finger LT 3rd digitDictation Location: [place] [address] STARFACE Other xr finger LT 3rd digitTranscribed By: [facility] 01/04/[address] [place] [address] ZipMatch Other xr finger LT 3rd digitDictated By: Primo Gregory II, MD 01/04/[address] [place] [address] ZipMatch Other xr finger LT 3rd digitSigned By:STARFACE Other xr finger LT 3rd digit01/04/23 [facility] Regional HospitalUlterius Technologies Other Blood Occult Stool #1on 34-12-5645Fmfm, Stool #1 [id number] Predictive TechnologiesHemoglobin.gastrointestinal spec 1 Ql (Stl) NegativeNEGATIVEBON SECOURS ChannelMeter HEALTHTime, Stool #1800B[facility] MERCY HEALTHBON SECOURS Hydra Renewable ResourcesY HEALTHC-Reactive Proteinon 92-27-4094WTS High sensitivity method [Mass/Vol]3.6 mg/L0.0 - 5.0 mg/LBON SECOURS MERCY HEALTHBON SECOURS Hydra Renewable ResourcesY HEALTHCBC with Auto Differentialon 17-21-2875Bteisfuv Eos #0.11B[facility] Hydra Renewable ResourcesY HEALTHAbsolute Immature GranulocyteBON SECOURS ChannelMeter HEALTH Absolute Lymph #2.15[facility] CannMedica PharmaAbsolute Yell #0.47B[facility] ChannelMeter [facility]ITAN HOSPITALBasophils (Bld) [#/Vol]0.05 10*3/uLBON [facility] HEALTHBasophils/100 WBC (Bld)1 %0 - 2 %[facility] PULASKIEosinophils/100 WBC (Bld)2 %1 - 4 % [facility] PULASKIHematocrit (Bld) [Volume fraction]35.4 %Low36.3 - 47.1 % [facility] PULASKIHemoglobin (Bld) [Mass/Vol]12.0 g/dL11.9 - 15.1 g/dLBON SECFLOWER HOSPITALImmature granulocytes/100 WBC (Bld)0 %0BON [facility]IG[facility] DISTRICT HOSPITALInterpretation and review of laboratory resultsAbnormalBON HIGHLAND DISTRICT HOSPITALLymphocytes/100 WBC (Bld)33 %24 - 43 %B[facility] CENTERH (RBC) [Entitic mass]31.7 pg25.2 - 33.5 pgBON CHERRINGTON HOSPITALHC (RBC) [Mass/Vol] 33.9 g/dL28.4 - 34.8 g/dLBON CHERRINGTON HOSPITALV (RBC) [Entitic vol]93.7 fL 82.6 - 102.9 fLLEWISGALE HOSPITAL PULASKIMonocytes/100 WBC (Bld)7 %3 - 12 %[facility]OSPITAL PULASKINRBC Automated0.00.0 per 100 WBCLEWISGALE HOSPITAL PULASKI Platelet distribution width (Bld) [Ratio]12.0 %11.8 - 14.4 %[facility] PULASKIPlatelet mean volume (Bld) [Entitic vol]8.6 fL8.1 - 13.5 fLINOVA HEALTH SYSTEM HEALTHPlatelets (Bld) [#/Vol]321 10*3/uLBON SECOCHSNER MEDICAL CENTER HEALTHRBC (Bld) [#/Vol]3.78 10*6/uLLow3.95 - 5.11 m/uLLEWISGALE HOSPITAL PULASKISegmented neutrophils/100 WBC (Bld)57 %36 - 65 %[facility]OS[facility]ITAL PULASKISegs Absolute3.68 BON HIGHL[facility] DISTRICT HOSPITALWBC (Bld) [#/Vol]6.5 10*3/uLBON SECOURS [facility] HEALTHComprehensive Metabolic Panelon 14-40-1740Grwffxd [Mass/Vol] 4.5 g/dL3.5 - 5.2 g/dLBON [facility] ChannelMeter HEALTHAlbumin/Globulin [Mass ratio]1.7 {ratio}1.0 - 2.5BON SECZUNI [facility]PRE[facility] ChannelMeter HEALTHALP [Catalytic activity/Vol]72 U/L35 - 104 U/LBON SECOURS Hydra Renewable ResourcesY HEALTHALT [Catalytic activity/Vol]16 U/L5 - 33 U/LBON SECMARY BRIDGE CHILDREN'S HOSPITALFormative LabsAnion gap [Moles/Vol]8 mmol/LLow9 - 17 mmol/LBON SECOURS [facility]BLEN[facility] HOSPITALfabrooms HEALTHAST [Catalytic activity/Vol]19 U/LNINF - 32 U/LBON [facility] CENTERFormative LabsBilirubin [Mass/Vol]mg/dLLow0.3 - 1.2 mg/dLBON SECMARY BRIDGE CHILDREN'S HOSPITALfabrooms HEALTHCalcium [Mass/Vol]9.3 mg/dL8.6 - 10.4 mg/dLBON SECZUNI COMPREHENSIVE HEALTH CENTER ChannelMeter HEALTHChloride [Moles/Vol] 99 mmol/L98 - 107 mmol/LBON [facility] HEALTHCO2 [Moles/Vol]28 mmol/L20 - 31 mmol/LBON [facility] Hydra Renewable Resources [place] Redbaby Internet TechnologyCreatinine [Mass/Vol]0.76 mg/dL0.50 - 0.90 mg/dL BON [facility] ChannelMeter HEALTHGFR/1.73 sq M.predicted MDRD (S/P/Bld) [Vol rate/Area]- PINFBON [facility] [place] Redbaby Internet TechnologyComment on above: These results are not intended [...] therapy that affects renal tubular secretion. Glucose [Mass/Vol]84 mg/dL70 - 99 mg/dLBON [facility] CannMedica PharmaInterpretation and review of laboratory resultsAbnormalBON [facility]ZUN[facility]ENTER CannMedica PharmaPotassium [Moles/Vol]4.0 mmol/L3.7 - 5.3 mmol/LBON [facility] ChannelMeter HEALTHProtein [Mass/Vol] 7.2 g/dL6.4 - 8.3 g/dLBON HIGHLAND DISTRICT HOSPITALSodium [Moles/Vol]135 mmol/L135 - 144 mmol/LBON HIGHLAND DISTRICT HOSPITALUrea nitrogen [Mass/Vol]15 mg/dL6 - 20 mg/dL BON [facility]IGHLAND DISTRICT HOSPITALUrea nitrogen/Creatinine (Bld) [Mass ratio]209 - 20BON COTEAU DES PRAIRIES HOSPITALSedimentation Rateon 80-57-2070TBO (Bld) [Velocity]6 mm/hBON COTEAU DES PRAIRIES HOSPITALT3, 56-37-3340Uuly T3 [Mass/Vol]2.36 pg/mL2.02 - 4.43 pg/mLBON [facility] BON [facility]IGHL[facility] DISTRICT HOSPITALT4, 58-32-9960Thmf T4 [Mass/Vol]0.70 ng/dLLow0.93 - 1.70 ng/dLBON HIGHLAND DISTRICT HOSPITALInterpretation and review of laboratory resultsAbnormRiverside Behavioral Health CenterTSHon 12-09-2022 Interpretation and review of laboratory resultsAbnormMountain View Regional Medical Center TSH Qn21.12 m[IU]/LHighBON COTEAU DES PRAIRIES HOSPITALMG MAMM SCREEN 3D LEIF CADon 44-61-7520MC MAMM SCREEN 3D LEIF CADPatient: SUSAN BLACKWELL Exam Date: 06/23/2022 : 1980 Gender:F Ordering : DR RANDAL BLOUNT . Admission #: [id number] Family : Order #: [id number] CLICK HERE TO VIEW EXAM RADIOLOGY REPORT PROCEDURE: MAMMOGRAM SCREENING 3D BILATERAL CAD COMPARISON: MG MAMM SCREEN 3D LEIF CAD, 06/24/2021. INDICATIONS: Screening mammography Calculator Name NCI Breast Cancer Risk Assessment Tool 5 Year Breast Cancer Risk 0.80% Lifetime Breast Cancer Risk 12.40% Personal Breast Cancer No Personal Ovarian Cancer No Treatments None Family Cancers None LOCATION: The [facility] BREAST COMPOSITION: Extremely dense, which lowers the [...] by: Kanika Cochran MD on 06/24/2022 at 08:03Doctors HospitalOG PANEL 2: 30 to 65on 06-06-2022..NormalThe [facility] on above:Result Comment: Performed at: WBPerformed By: #### [id number] #### [facility] [address] [place] [address] Dr. Pk CatAge Gdln ACOG Lcvlijz46-96OlxlemLnlGrant HospitalComhelen devos [facility] on above:Performed By: #### [id number] #### [facility] [address] [place] [address] Dr. Pk CatDIAGNOSIS:CommentRegency Hospital Company on above: Result Comment: NEGATIVE FOR INTRAEPITHELIAL LESION OR MALIGNANCY. Performed at: WBPerformed By: #### [id number] #### [facility] [address] [place] [address] Dr. Pk CatHPV AptimaNegativeNormalNegativeProMedica Defiance Regional Hospital on above:Result Comment: This nucleic acid amplification test detects fourteen high-risk HPV types (16,18,31,33,35,39,45,51,52,56,58,59,66,68) without differentiation. Performed at: =GPerformed By: #### [id number] #### [facility] [address] [place] [address] Dr. Pk CatMethodology:CommentRegency Hospital Company on above: Result Comment: This liquid based ThinPrep(R) pap test was screened with the use of an image guided system. Performed at: WBPerformed By: #### [id number] #### [facility] [address] [place] [address] Dr. Pk CatNote:CommentRegency Hospital Company on above:Result Comment: The Pap smear is a screening test designed to aid in the detection of premalignant and malignant conditions of the uterine cervix. It is not a diagnostic procedure and should not be used as the sole means of detecting cervical cancer. Both false-positive and false-negative reports do occur. . Performed at: WBPerformed By: #### [id number] #### [facility] [address] [place] [address] [address] Pk CatPerformed by:CommentNoMercy Health Allen Hospital on above: Result Comment: oMy Conde Refractory Worker (ASCP) Performed at: Performed By: #### [id number] #### [facility] [address] [place] [address] [address] Pk CatSpecimen adequacy:CommentRegency Hospital Company on above:Result Comment: Satisfactory for evaluation. Endocervical and/or squamous metaplastic cells (endocervical component) are present. Performed at: Performed By: #### [id number] #### [facility] [address] [place] [address] [address] Pk CatXR CERVICAL SPINE (2-3 VIEWS)on 14-60-0049Xjqkcq exam [facility] CONSOLIDATEDEXAMINATION: XRAY VIEWS OF THE CERVICAL SPINE 05/05/2022 10:04 am COMPARISON: None. HISTORY: ORDERING SYSTEM PROVIDED HISTORY: Numbness and tingling in right hand FINDINGS: Cervical spine alignment is anatomic. No acute osseous abnormality. No significant degenerative change. Prevertebral soft tissues unremarkable. [facility] Gilmer Lindo DO - 05/05/2022 EXAMINATION: XRAY VIEWS OF THE CERVICAL SPINE 05/05/2022 10:04 am COMPARISON: None. HISTORY: ORDERING SYSTEM PROVIDED HISTORY: Numbness and tingling in right hand FINDINGS: Cervical spine alignment is anatomic. No acute osseous abnormality. No significant degenerative change. Prevertebral soft tissues unremarkable. IMPRESSION: Normal exam [employer] Phone: radiology Study observation (narrative)[employer]onto[employer] Phone: XR CERVICAL SPINE (2-3 VIEWS)Ordered By: Gilmer Menendez on 39-25-5849KKT [facility] Work Phone: ALTOrdered By: Yasmin Thompson on 60-00-9092LNH [Catalytic activity/Vol]13 U/L5 - 33 U/LMercy Health Work Phone: aSTOrdered By: Yasmin Thompson on 52-56-8733ZGG [Catalytic activity/Vol]17 U/L<32[facility] [employer] Work Phone: basic Metabolic PanelOrdered By: Yasmin Thompson on 20-22-5442Ccysc gap [Moles/Vol]6 mmol/LLow9 - 17 mmol/LMercy Health Work Phone: calcium [Mass/Vol]9.5 mg/dL8.6 - 10.4 mg/dLMerGlampingHub.com Work Phone: chloride [Moles/Vol]105 mmol/L98 - 107 mmol/LMercy Health Work Phone: cO2 [Moles/Vol]27 mmol/L20 - 31 mmol/LMercy Health Work Phone: creatinine [Mass/Vol]0.76 mg/dL0.50 - 0.90 mg/dLMerGlampingHub.com Work Phone: GFR >60>60 mL/minMerPaktor Health Work Phone: GFR Non->60>60 mL/minMerPaktor Health Work Phone: Glucose [Mass/Vol]89 mg/dL70 - 99 mg/dLMerGlampingHub.com Work Phone: Interpretation and review of laboratory results AbnormalMerGlampingHub.com Work Phone: potassium [Moles/Vol]4.4 mmol/L3.7 - 5.3 mmol/LMercy Health Work Phone: sodium [Moles/Vol]138 mmol/L135 - 144 mmol/LMercy Health Work Phone: Urea nitrogen (BldV) [Mass/Vol]20 mg/dL6 - 20 mg/dL [facility] HospitalShinyByte Phone: Urea nitrogen/Creatinine (Bld) [Mass ratio]26HighProtestant HospitalVermont Transco Phone: cBCOrdered By: Yasmin Thompson on 81-53-1993Yftgqhapvg (Bld) [Volume fraction]38.8 %36.3 - 47.1 %[facility] HospitalShinyByte Phone: Hemoglobin.gastrointestinal spec 1 Ql (Stl)12.8 g/dL 11.9 - 15.1 g/dLProtestant HospitalVermont Transco Phone: Interpretation and review of laboratory results AbnormalProtestant HospitalVermont Transco Phone: MCH (RBC) [Entitic mass]30.8 pg25.2 - 33.5 pgProtestant HospitalVermont Transco Phone: MCHC (RBC) [Mass/Vol]33.0 g/dL28.4 - 34.8 g/dLProtestant HospitalVermont Transco Phone: MCV (RBC) [Entitic vol]93.3 fL82.6 - 102.9 fLProtestant HospitalVermont Transco Phone: NRBC Automated0.00.0 per 100 WBCProtestant HospitalVermont Transco Phone: platelet distribution width (Bld) [Ratio]11.7 %Low11.8 - 14.4 %[facility] HospitalShinyByte Phone: platelet mean volume (Bld) [Entitic vol]8.9 fL8.1 - 13.5 [facility] HospitalVermont Transco Phone: platelets (Bld) [#/Vol]299 10*3/PreshoVermont Transco Phone: rBC (Bld) [#/Vol]4.16 10*6/uL3.95 - 5.11 m/uLOtoharmonics Corporation Phone: WBC (Bld) [#/Vol]6.0 10*3/uLOtoharmonics Corporation Phone: [facility] Hospital[facility] Trans[facility] Phone: laboratory - Chemistry and Chemistry - challenge Ordered By: Yasmin Thompson on 10-78-7276RED/1.73 sq M.predicted MDRD (S/P/Bld) [Vol rate/Area][employer] Phone: comment on above:Average GFR for 40-49 years old: 99 mL/min/1.73sq m Chronic Kidney Disease: <60 mL/min/1.73sq m Kidney failure: <15 mL/min/1.73sq m eGFR calculated using average adult body mass. Additional eGFR calculator available at: http://www.Hansoft/multiple_crcl_2012.htm Stage 1: Some kidney damage normal GFR Stage 2: Mild kidney damage GFR 60-89 Stage 3: Moderate kidney damage GFR 30-59 Stage 4: Severe kidney damage GFR 15-29 Stage 5: Severe kidney damage GFR <15 ESRD - chronic treatment by dialysis or transplant Lipid PanelOrdered By: Yasmin Thompson on 00-29-3361Nvoxgwxeppw [Mass/Vol]168 mg/dL<200[employer] Phone: comment on above: Cholesterol Guidelines: <200 Desirable 200-240 Borderline >240 Undesirable Cholesterol in HDL [Mass/Vol]52 mg/dL>40[employer] Phone: comment on above: HDL Guidelines: <40 Undesirable 40-59 Borderline >59 Desirable Cholesterol in LDL [Mass/Vol]80 mg/dL0 - 130 mg/dLOtoharmonics Corporation Phone: comment on above: LDL Guidelines: <100 Desirable 100-129 Near to/above Desirable 130-159 Borderline >159 Undesirable Direct (measured) LDL and calculated LDL are not interchangeable tests. Cholesterol in VLDL [Mass/Vol]NOT REPORTEDHigh1 - 30 mg/dLOtoharmonics Corporation Phone: cholesterol.total/Cholesterol in HDL [Mass ratio]3.2 {ratio}<5Pro[facility] HospitalV[facility] Phone: Interpretation and review of laboratory results AbnormalProtestant HospitalVermont Transco Phone: Triglyceride [Mass/Vol]179 mg/dLHigh<150Protestant HospitalVermont Trans[facility] Phone: comment on above: Triglyceride Guidelines: <150 Desirable 150-199 Borderline 200-499 High >499 Very high Based on AHA Guidelines for fasting triglyceride, July 2012. [employer] Work Phone: No Panel InformationOrdered By: Yasmin Thompson on 97-61-9147M[facility] Work Phone: ts without ReflexOrdered By: Yasmin Thompson on 00-97-3458AGB Qn4.48 m[IU]/LMercy trbo GmbH Work Phone: [facility] HospitalV[facility] Phone: pROGRESSon [id number] ID: [id number] Author: Kailey uLjan) María Service: ? Author Type: Nurse Practitioner Type: Progress Notes Filed: 12/14/2019 9:58 AM Note Text: Telemedicine Visit - Distance Health Virtual Visit Note Patient seen on [facility] Online platform. Location of patient: [place] History of Present Illness Susan Blackwell is a 39 year old year [...] current outpatient medications on file. No current facility-administered medications for this visit. ALLERGIES No Known [...] with cough and to thin out mucus -http://www.choosingwisely.org/patient-resources/antibiotics/. This link shares information about when antibiotics [...] will help in providing you the best care.[facility] [id number] ID: [id number] Author: Kailey Daniel Service: ? Author Type: Nurse Practitioner Type: Progress Notes Filed: 10/24/2019 10:08 AM Note Text: Telemedicine Visit - Distance Health Virtual Visit Note Patient seen on [employer] Online platform. Location of patient: [place] History of Present Illness: Susan Blackwell is a 39 year old year [...] of ointment to affected eye(s) No current facility-administered medications for this visit. ALLERGIES No Known Allergies VIDEO EXAMINATION (Examination performed via Video enabled technology) General Appearance: 39 year old year old female in NAD Eyes: Normal Pupil Size EOMI Right: normal sclera Left: Conjunctival injection ASSESSMENT/PLAN: 1. [place] eye disease of left eye - ICD9: [...] will help in providing you the best care.TriHealthPROCARon [id number] ID: [id number] Author: Phill Sommers Service: ? Author Type: Nurse Practitioner Type: Progress Notes Filed: 01/09/2019 4:50 PM Note Text: Telemedicine Visit - Distance Health Virtual Visit Note Patient seen on [employer] Online platform. Location of patient: [place] History of Present Illness Susan Blackwell is a 38 year old year [...] strep:No Sick contacts: no Recent travel: Yes [place] (12/28-01/02) symptoms began on vacation OTC meds/remedies [...] 875 MG-POTASSIUM CLAVULANATE 125 MG TABLET - [place]ounds nasal spray as directed - Add Flonase as directed -Tylenol (generic acetaminophen) 500 mg-2 tabs every 8 hrs. as needed for fever and aches -Mucinex (generic is fine) 1200 mg twice daily to help with cough and to thin out mucus -http://www.choosingwisely.org/patient-resources/antibiotics/. This link shares information about when antibiotics may help and when they may not. - Red flags discussed for need for in person care - All questions answered Phill Sommers APRN.ROAD REPAIRER If you let us know who your [...] sprays and irrigation kits can be purchased mocq-axb-tyszbio. Saline mixes can also be purchased or [...] congestion, such as oral antihistamines (such as diphenhydramine/Benadryl?) or zinc supplements are not proven to [...] may be recommended, depending upon your individual situation.NormalWestern Reserve Hospital Vital Signs Date TimeVital SignValuePerforming QrmsdojzfJjmdzzue02-55-7005 15:04-0400Body mass index (BMI) [Ratio]31.41 kg/x3IrdnxffpMaryan Dave NP Work Phone: [facility] HospitalJxfpdnrfrd20-11-2559 15:04-0400Body .01 kgMaryan Dave NP Work Phone: [facility] HospitalGeeeopmbqi27-63-9248 15:04-0400Diastolic blood vwqgafzv78 mm[Hg]Maryan Dave NP Work Phone: [facility] HospitalXbvqbzrvkg57-61-8007 15:04-0400Systolic blood gbbeypth129 mm[Hg]Maryan Tenzin VALDOVINOS Work Phone: [facility] HospitalMnglyareip93-98-5551 13:06-0400Body sycaqm580.6 Penny Vega MD Work Phone: [facility] HospitalUcluccsprs42-90-7988 13:06-0400Body mass index (BMI) [Ratio]31.76 kg/d8RnmdnEliu Vega MD Work Phone: [address] [place], [place] [address]Ojnmetxrie72-19-5047 13:06-0400Body .92 kgEliu Vega MD Work Phone: [address] [place], [place] [address]Imljemfcam72-14-8943 13:06-0400Diastolic blood ewskybmd00 mm[Hg]Eliu Vega MD Work Phone: [facility] HospitalObxkpwqnto98-77-8715 13:06-0400Heart lvqd064 /min Eliu Vega MD Work Phone: [address] [place], [place] [address]Nfajawnphm68-82-0642 13:06-0400Respiratory rate20 /minEliu Vega MD Work Phone: [facility] HospitalXpnzxrfhpr19-13-1165 13:06-2024LdX0% (BldA) [Mass fraction]96 %Eliu Vega MD Work Phone: [facility] HospitalVfbvbvtrcm66-75-1267 13:06-0400Systolic blood rfqhhagq316 mm[Hg]Eliu Vega MD Work Phone: [facility] HospitalSazrkldmpy46-21-6317 15:20-0400Body mass index (BMI) [Ratio]30.69 kg/m2Sarah IZAGUIRRE Work Phone: [facility] HospitalEqbejsdtta32-75-9705 15:20-0400Body yzfjos24.1 kg Sarah IZAGUIRRE Work Phone: NOWashington [facility] Memorial HospitalNbuapbzxky72-36-8668 15:20-0400Diastolic blood cdzimbeu01 mm[Hg]Sarah IZAGUIRRE Work Phone: NOW[facility] HospitalRopemteqhr41-41-1609 15:20-0400Systolic blood aoufyxen724 mm[Hg]Sarah IZAGUIRRE Work Phone: noWeaveYrwbvawega23-47-0895 18:15-0400Body jahftx896.56 Marco Ventura Other STARFACE Other 03-15-2023 18:15-0400Body mass index (BMI) [Ratio] 29.18 kg/b2MwgcxaShanel Ventura Other STARFACE Other 03-15-2023 18:15-0400Body kyhtau96.11 kgShanel Ventura Other STARFACE Other 03-15-2023 18:15-0400Diastolic blood amruvjzp95 mm[Hg] Shanel Millanmond Other STARFACE Other 03-15-2023 18:15-0400Respiratory rate18 /minShanel Ventura Other STARFACE Other 03-15-2023 18:15-1675JmD1% (BldA) [Mass fraction]97 % Shanel Millanmond Other STARFACE Other 03-15-2023 18:15-0400Systolic blood fxepmdil205 mm[Hg] Shanel Millanmond Other STARFACE Other Encounters Encounter DateEncounter TypeCare ProviderFacilityStart: 73-75-8095Agckd Myers [place] - [employer] - [employer] [facility] Start: 07-22-2025 End: 26-75-1848Oksrdjn encounter Yasmine Dave NP Work Phone: [facility] Work Phone: Start: 07-22-2025 End: 04-04-9232Pxuytyvm flow Ernesto Dave EMERGENCY TELECOMMUNICATIONS DISPATCHER Work Phone: noms Sergio OBGYNComment on above:Well woman exam with routine gynecological exam; Breast cancer screening by mammogramStart: 07-22-2025 End: 57-59-9243kygmokrzllMJFEDDHF EBERLYNot AvailableStart: 07-22-2025 End: 98-30-4411Mxnlob flowsSumi Dave EMERGENCY TELECOMMUNICATIONS DISPATCHER Work Phone: noms Sergio OBGYNStart: 07-22-2025 End: 68-91-5566Avoxtu flowsSumi Dave EMERGENCY TELECOMMUNICATIONS DISPATCHER Work Phone: noms [place] OBGYNStart: 07-22-2025 End: 72-00-3180Uhlhnxhtq Result EncounterMaryan Dave EMERGENCY TELECOMMUNICATIONS DISPATCHER Work Phone: noms External Department UnsolicitedStart: 03-31-2025 End: 12-91-8735Qcelkg Rox Vega MD Work Phone: noms ENDOCRINOLOGYStart: 03-31-2025 End: 71-18-3260Kcaigsvi Vega MD Work Phone: noms ENDOCRINOLOGYStart: 03-31-2025 End: 38-62-4096Usqhkj outpatient visit 25 minutesEliu Vega MD Work Phone: noMS ENDOCRINOLOGYComment on above:Arcelia's disease (CMS/HCC) (Primary Dx); Goiter (CMS/HCC); Family history of thyroid disease; Class 1 obesity due to excess calories without serious comorbidity with body mass index (BMI) of 31.0 to 31.9 in adultStart: 03-31-2025 End: 32-28-7210yobvvjhwgpHIUAILeatha Long AvailableStart: 03-21-2025 End: 25-04-0187eodngbwgjaJYITMLeatha LouisConnecticut Valley Hospitaltart: 03-21-2025 End: 90-92-5038Vwbjbrs encounter statusYasmin Thompson APRN - ROAD REPAIRER Work Phone: [facility] CenterStart: 03-21-2025 End: 28-47-9391Euoilsrqhf hospital visit by Blaise Thompson APRN - SID Work Phone: [facility] LABComment on above:Wellness examinationStart: 07-18-2024 End: 12-37-8253Wqfjlwr encounter procedureAmy Chip IZAGUIRRE Work Phone: [facility] Work Phone: Start: 07-18-2024 End: 90-31-9595Tumuiaca preventive med est patient 40-64yrsAmy Chip IZAGUIRRE Work Phone: noms BCP OBComment on above:Well woman exam with routine gynecological examStart: 07-18-2024 End: 73-73-6760Dwmxwl flowsheetSarah IZAGUIRRE Work Phone: noms BCP OBStart: 07-18-2024 End: 35-32-1669Anpqllxcb Result EncounterAmy Chip IZAGUIRRE Work Phone: noms External Department UnsolicitedStart: 07-18-2024 End: 79-95-6033Kkgvhubbh Result EncounterAmy Chip IZAGUIRRE Work Phone: noms External Department UnsolicitedStart: 05-20-2024 End: 99-41-8612Mwjmczyqb Result EncounterCorey Garrick DO Work Phone: noms External Department UnsolicitedStart: 05-20-2024 End: 18-70-2370Piskmsorh Result EncounterCorey Garrick DO Work Phone: noms External Department UnsolicitedStart: 03-28-2024 End: 20-59-0754jsnnklahshFCUVBLeatha CARBALLOKamala [facility] HospitalStart: 03-25-2024 End: 13-53-0426crwfdcizjcQJANVSJamaal Betancourt [facility] HospitalStart: 03-25-2024 Encounter for general adult medical examination without abnormal findingsYASMIN Cantu HospitalStart: 02-10-2024 End: 98-66-9504Wqetisbjww hospital visit by Blaise Sun CNP Work Phone: mthz LaboratoryComment on above:Change in bowel habits; Flatulence, eructation and gas painStart: 02-08-2023 End: 28-05-1593Mvhztqqrou hospital visit by [facility] UltrasoundComment on above:Arcelia's diseaseStart: 01-17-2023 End: 66-39-8022Ncasscxkdd hospital visit by Blaise Sun CNP Work Phone: mthz LaboratoryComment on above:Hypothyroidism, unspecified typeStart: 01-04-2023 End: 60-41-0394asvacnsopqEillwr AudreyFacility:[facility] Start: 01-04-2023 End: 22-45-2409Gilolnl encounter procedureNP-C Shanel Ventura Work Phone: [facility] Work Phone: Start: 01-04-2023 End: 85-59-6790fipryyinqpQX-C Shanel Ventura Work Phone: [facility] Work Phone: Start: 13-44-0011Bjkahy outpatient visit 15 minutes Shanel VenturaFPG Urgent Care ClydeStart: 12-11-2022 End: 86-89-0405Yjtgdleqno hospital visit by Blaise Sun CNP Work Phone: mthz LaboratoryComment on above:Abdominal bloating; Loose stoolsStart: 12-09-2022 End: 24-51-0479Zjugckrwtr hospital visit by Blaise Sun CNP Work Phone: mthz LaboratoryComment on above:Elevated glucose; Abdominal bloating; Loose stoolsStart: 06-23-2022 End: 65-00-8153ipcgtsbqpiAE RANDAL BLOUNTFacility:T8Sqspe: 05-31-2022 End: 88-54-9514pcqtbwdqvtOL RANDAL BLOUNTFacility:U5Bblgi: 05-05-2022 End: 69-07-7961Nsskqys encounter [address] RadiologyStart: 05-05-2022 End: 68-65-3035Ekjjqnpxjz hospital visit by physicianNortheast Health System Fernando Abbasi [address] [place] [address] RadiologyComment on above:Numbness and tingling in right hand; Wellness examinationStart: 03-31-2021 End: 09-90-4451Ogxtivt encounter statusYeison Spencer MD Work Phone: mthz LaboratoryStart: 03-31-2021 End: 39-63-8591Gfupyxrist hospital visit by physicianYeison Spencer MD Work Phone: mthz EKGComment on above:Chest pain, unspecified type Wellness examination; Lipid screening; Diabetes mellitus screeningStart: 03-27-2017 End: 93-20-1031Myirbqb encounter statusYeison Spencer MD Work Phone: [facility] Procedures DateProcedureProcedure DetailPerforming ClinicianStart: 16-84-1487QJG,APTIMA HPV,AGE Vannessa Dave NP Work Phone: Start: 03-21-2025 End: 35-33-4962Cgqub metabolic panel calcium totalYasmin Thompson P[employer] LADLE - ROAD REPAIRER Work Phone: Start: 90-84-4614Czzhy panelYasmin Thompson POUR[employer] BULL LADLE - ROAD REPAIRER Work Phone: Start: 43-14-0813LJC,APTIMA HPV,AGE Naila IZAGUIRRE Work Phone: Start: 43-27-9786Gkohwdkwkgz observation [Identifier] in Cervix by Cyto Adrianna Thompson P[employer]ADLE - ROAD REPAIRER Work Phone: Start: 10-12-9092ZG TOMOSYNTHESIS SCREENING Rufino Raineso Work Phone: Start: 33-41-9364XamhanvuomkTdy Ramey PA Work Phone: Start: 28-32-3412Nt soft tissue head & neck real time imge docIlda Thompson P[employer]ADLE - ROAD REPAIRER Work Phone: Start: 95-23-8225Dduje of free thyroxineIvelissearlen Thompson P[employer]ADLE - ROAD REPAIRER Work Phone: Start: 36-12-7780D-ray of middle fingerNP-C Shanel Ventura Work Phone: Start: 37-42-5051Pyjqq occult peroxidase actv qual feces 1 deterYasmin Thompson P[address] LADLE - ROAD REPAIRER Work Phone: Start: 85-89-6382M-reactive proteinYasmin Thompson P[employer]ADLE - ROAD REPAIRER Work Phone: Start: 67-72-2036Wtmgnmcxmepqk metabolic panelYasmin Thompson P[employer]ADLE - ROAD REPAIRER Work Phone: Start: 01-49-5017Zczki spine cervical 2 or 3 views Yasmin Thompson P[employer]ADLE - ROAD REPAIRER Work Phone: Start: 35-44-3789Xfjkuajqmef observation [Identifier] in Cervix by Cyto stainYasmin Thompson P[employer] LADLE - ROAD REPAIRER Work Phone: Start: 78-75-1228Mom routine ecg w/least 12 lds w/i&r Yasmin Thompson P[employer]ADLE - ROAD REPAIRER Work Phone: Start: 58-68-8650Hnnhk metabolic panel calcium total Yasmin Thompson P[employer] [employer] [employer]ADLE - ROAD REPAIRER Work Phone: Start: 90-83-4005Mrmag panelYasmin Thompson P[employer] LADLE - ROAD REPAIRER Work Phone: Start: 38-40-6514Ocirrhmw Italia Copeland Plan of Treatment DateCare ActivityDetailAuthorStart: 57-72-6519UBwD/Tdap/Td vaccine (2 - Td or Tdap)DTaP/Tdap/Td vaccine (2 - Td or Tdap)[facility]: 18-79-4697Iqoti panelLipidsLifePoint Hospitals: 28-21-3809Aktbgfjvm for malignant neoplasm of cervixClinch Valley Medical Centerart: 25-27-5834Ypzoj panelLipidsRiverside Tappahannock Hospitalart: 07-27-2026 End: 66-69-9295Asfvpwn encounter lsodsbiuj67/05/2026 3:00 PM EDT Procedure Visit [facility] CLANCY [address] [place] [address] Sarah Saunders PA [address] [place] [address] [facility] Sergio OBGYNStart: 05-20-2026 Screening for malignant neoplasm of breastBreast cancer screenBon OhioHealthart: 03-30-2026 End: 97-04-0414Hxhlpza encounter procedureNOMS ENDOCRINOLOGYStart: 12-02-2025 Depression MonitoringDepression MonitoringLifePoint Hospitals: 20-64-9610YxJobfew; Flu Shot OnlyInPerson; Flu Shot OnlyIN - [facility] Start: 07-22-2025 End: 22-34-5343Rwoepio encounter procedureNOMS [facility] OBComment on above:Arrived Start: 07-22-2025 End: 43-13-4325FL Breast - bilateral ScreeningBilateral screening mammogram Imaging Routine Breast cancer screening by mammogram Expected: 07/22/2025 (Approximate), Expires: 09/21/2026[facility] Work Phone: comment on above:Expected: 07/22/2025 (Approximate), Expires: 09/21/2026Start: 05-28-2025 End: 63-49-0697Gzmooda encounter zobdfgfwt18/06/2025 11:00 AM EDT Office Visit [facility] [address] [place] [address] [address] [place] [address] Yasmin Thompson, POURER BULL LADLE - ROAD REPAIRER [address] [place] [address] [facility] Primary CareComment on above:wellnessStart: 09-63-3500Umwygzjem for malignant neoplasm of breastMammogramNOIL HealthcareStart: 03-31-2025 End: 10-52-7481Swbzilaldvp [Units/volume] in Serum or PlasmaTSH Lab Routine Arcelia's disease (CMS/HCC) Expected: 03/31/2025 (Approximate), Expires: 03/31/2026[facility] HealthcareComment on above:Expected: 03/31/2025 (Approximate), Expires: 03/31/2026Start: 03-31-2025 End: 39-58-4209Hwzsjbwvl (T4) free [Mass/volume] in Serum or PlasmaT4, free Lab Routine Arcelia's disease (CMS/HCC) Expected: 03/31/2025 (Approximate), Expires: 03/31/2026[facility] HealthcareComment on above:Expected: 03/31/2025 (Approximate), Expires: 03/31/2026Start: 03-31-2025 End: 58-71-9206Ybfokzhfwbaptyqz (T3) Free [Mass/volume] in Serum or PlasmaT3, free Lab Routine Arcelia's disease (CMS/HCC) Expected: 03/31/2025 (Approximate), Expires: 03/31/2026[facility] Work Phone: Comment on above:Expected: 03/31/2025 (Approximate), Expires: 03/31/2026Start: 03-31-2025 End: 10-48-7353Vrbzogs encounter procedureNOMS ENDOCRINOLOGYComment on above: ArrivedStart: 49-71-2771Tzevjtcnaf MonitoringDepression MonitoringBON HIGHLAND DISTRICT HOSPITALStart: 07-18-2024 End: 52-25-7129Cgpplfc encounter yoqtkydpa17/26/2024 3:00 PM EDT Office Visit [facility] [address] [place] [address] Sarah Saunders PA [address] [place] [address] [place] [address] ArrivedFRESNO SURGICAL [facility] OBComment on above:ArrivedStart: 07-18-2024 End: 05-95-2870Kutccdqoc to same day surgery bvwhpf1807/18/2024 12:05 PM EDT - 07/18/2024 12:50 PM EDT Surgery [facility] OR [address] [place], [place] [id number] Evelyn Gonzalez MD [address] [place] [address] COLORECTAL CANCER SCREENING, NOT HIGH RISKALICE HYDE MEDICAL CENTER ORComment on above:COLORECTAL CANCER SCREENING, NOT HIGH RISKStart: 07-18-2024 End: 28-79-2477Cxxem ca scrn not hi rsk indCOLORECTAL CANCER SCREENING, NOT HIGH RISK Screening for colon cancer 07/18/2024 12:05 PM EDSelect [facility] HospitalStart: 03-17-2740Dzjjrtatax hospital visit by okpcysgpy90/26/2024 12:05 PM EDT Hospital Encounter [place] [id number] Evelyn Gonzalez MD [address] [place] [address] [facility] ORStart: 48-12-8395YRJUR-19 Vaccine ( season)COVID-19 Vaccine ( season)[facility] CenterStart: 21-65-9573Nizdtyshd vaccinationInfluenza Vaccine (#1)[facility] HealthcareStart: 35-98-9165Gqdlaoqvj for malignant neoplasm of cervixBON HIGHLAND DISTRICT HOSPITALStart: 05-29-2024 End: 76-56-1202Pefqkdn encounter ekgguenmc34/07/2024 3:20 PM EDT Office Visit [facility] [address] [place] [address] [address] [place] [id number] Yasmin Thompson, POUR[employer] BULL LADLE - ROAD REPAIRER [address] [place] [address] [facility] Primary CareComment on above:WellnessStart: 44-49-6195Ongecibcg vaccinationFlu vaccine (Season Ended)[facility]ULASKIStart: 11-04-2023 Depression MonitoringDepression MonitoringBON HIGHLAND DISTRICT HOSPITALStart: 17-56-7535Ohvbo panelLipid [facility] Work Phone: start: 48-35-9720ZCTGR-19 Vaccine ( season) COVID-19 Vaccine ()[facility] PULASKIStart: 05-31-2023 End: 22-22-1742Gorfurg encounter vxlwuiaiw81/09/2023 Office Visit Primary Care Yasmin Thompson, POUR[employer] BULL LADLE - ROAD REPAIRER [address] [place] [address] [facility] Start: 44-83-4161Aiwyqpjtwk MonitoringDepression MonitoringBON The Christ Hospitalart: 01-23-2023 End: 31-33-7825Plnsers encounter vixbtxxzk79/03/2023 Office Visit Primary Care Yasmin Thompson, POUR[address] BULL LADLE - ROAD REPAIRER [address] [place] [address] [facility] Start: 11-04-2022 End: 55-70-0418Wqycjhs encounter peaatjbob64/13/2023 Office Visit Primary Care Yasmin Thompson, POUR[address] B[address] LADLE - ROAD REPAIRER [address] [place] [address] [facility] Start: 14-49-6633Tldlukvvn for malignant neoplasm of cervixCervical cancer screenBON HIGHLAND DISTRICT HOSPITALComment on above:Postponed from 2001 (Not Indicated)Start: 68-97-2720Wbuphqwqb vaccinationFlu vaccine (#1)[facility] HOSPITALReal Time ContentAccess Hospital Daytonart: 63-96-7003ZCG screeningHIV screenSouthern Ohio Medical Center [employer]3D Phone: comment on above:Postponed from 1995 (Patient Refused)Start: 56-57-9959WAVRY-19 Vaccine (4 - Booster for Moderna series)COVID- 19 Vaccine (4 - Booster for Moderna series)[facility]ITALFive Below [facility] Luke's Hospitalart: 07-26-2021 End: 29-48-7200Mopqnfp encounter [facility] Part [facility] Connecticuttart: 44-12-2092Ipjwwwtun for malignant neoplasm of cervixCHESAPEAKE REG[facility] ChannelMeter St. Luke's Hospitalart: 85-45-3626Gnxtnfdku for malignant neoplasm of cervixRiverside Tappahannock Hospitalart: 18-52-1208NDsP/Tdap/Td vaccine (1 - Tdap)DTaP/Tdap/Td vaccine (1 - Tdap)[facility] [employer] Phone: start: 89-96-3384Asesiebzw B vaccine (1 of 3 - 19+ 3- dose series)Hepatitis B vaccine (1 of 3 - 19+ 3-dose series)[facility] Centerart: 07-98-5331UFX screeningHIV screenRiverside Tappahannock Hospitalart: 15-45-2005Odifuqkwy B vaccine (1 of 3 - 3-dose series)Hepatitis B vaccine (1 of 3 - 3-dose series)[facility] HOSPITALTrinity Place Holdings End: 15-69-1960Yzorngnnfvdi StoolNAVAL MEDICAL CENTER PORTSMOUTHElectron Database Phone: comment on above:1 Occurrences starting 12/11/2022 until 12/11/2022eliac Disease PanelCeliac Disease Panel Lab Routine Abdominal bloating Loose stools 12/09/2022 5:03 PM ESTCHESAPEAKE REGIONAL [facility] [employer] Phone: eKG 12 leadEKG 12 lead ECG Routine Chest pain, unspecified type 03/31/2021 2:34 PM EDToolmeet Phone: End: 10-02-9203Pfbvaqkgidrobdru Panel, MolecularBON SECOURS MERCY HEALTHComment on above:1 Occurrences starting 02/10/2024 until 02/10/2024 End: 09-97-6455Ftwnnxo / Cryptosporidum antigensBON Virally HEALTHComment on above:1 Occurrences starting 02/10/2024 until 02/10/2024 End: 02-10-2024H. pylori antigenBON Virally HEALTHComment on above:Once for 1 Occurrences starting 02/10/2024 until 02/10/2024 End: 02-10-2024H. Pylori Antigen, StoolH. Pylori Antigen, Stool Lab Routine Flatulence, eructation and gas pain Change in bowel habits 1 Occurrences starting 02/10/2024 until 02/10/2024ON SECTrinity Place HoldingsComment on above:1 Occurrences starting 02/10/2024 until 02/10/2024 End: 69-01-8230Nxhljormik A1c/Hemoglobin.total in BloodHemoglobin A1C Lab Routine Wellness examination Diabetes mellitus screening 1 Occurrences starting 03/31/2021 until 03/31/[email or web address] Work Phone: comment on above:1 Occurrences starting 03/31/2021 until 03/31/2021Hemoglobin A1c/Hemoglobin.total in BloodHemoglobin A1C Lab Routine Wellness examination Diabetes mellitus screening 03/31/2021 2:20 PM EDT [employer] Work Phone: End: 97-30-8797Guasbinjmz A1c/Hemoglobin.total in BloodBON [employer] Work Phone: comqkwa on above:1 Occurrences starting 12/09/2022 until 12/09/2022 End: 27-60-4747Dekovolszz A1c/Hemoglobin.total in BloodAl Jazeera Agricultural Health Comment on above:1 Occurrences starting 03/21/2025 until 03/21/2025 End: 39-76-6067Dxzdjvwuey elastase, fecalBON [employer] Work Phone: Comment on above:1 Occurrences starting 02/10/2024 until 02/10/2024 End: 90-36-1056WXVVWWQE REJECTIONBON Virally HEALTHComment on above:Once for 1 Occurrences starting 02/10/2024 until 02/10/2024THIN PREP TIS PAP AND HR HPV DNATHIN PREP TIS PAP AND HR HPV DNA Pathology and Cytology Routine Well woman exam with routine gynecological exam Ordered: 07/18/2024[facility] Work Phone: comment on above:Ordered: 07/18/2024THIN PREP TIS PAP AND HR HPV DNATHIN PREP TIS PAP AND HR HPV DNA Pathology and Cytology Routine Well woman exam with routine gynecological exam Ordered: 07/22/2025NOWashington County Memorial HospitalComment on above:Ordered: 07/22/2025 End: 54-52-2427Hhselxw Peroxidase AntibodyLEWISGALE HOSPITAL PULASKI Work Phone: comment on above:1 Occurrences starting 01/17/2023 until 01/17/2023 Immunizations Immunization DateImmunizationNotesCare HfrfqceiSahpekto22-91-7880lruvbfvkd, seasonal, injectable, preservative [facility] 10605007-31-9045kjoftvrjv, seasonal, injectableHannaarlen Thompson P[address] [employer]ADLE - ROAD REPAIRER Work Phone: [facility] CenterTthyxr44-57-3503nlhxjvlxu virus vaccine, unspecified formulationComanche County Hospitalnaarlen Buckleyn P[employer]ADLE - ROAD REPAIRER Work Phone: [facility] Work Phone: [phone]snfi toxoid, reduced diphtheria toxoid, and acellular pertussis vaccine, adsorbed[address] Work Phone: [phone]H-04, MODERNA Booster BLUE border, (age 18y+), IM, 50mcg/0.25mLNvh [address] [place], [place] [address]10-13-2021influenza virus vaccine, unspecified formulation[address]03-26-2021COVID-19, Moderna, PF, 100mcg/0.5mLYeison Spencer MD Work Phone: [facility] Work Phone: [phone]-73, Moderna, PF, 100mcg/0.5mLYeison Spencer MD Work Phone: Protestant HospitalGlampingHub.com Work Phone: [phone]gmzxv virus vaccine, unspecified formulationYeison Spencer MD Work Phone: YFC [facility] HOSPITALTrinity Place HoldingsKTPIFO98-11-0387ynqmsbvgq virus vaccine, unspecified formulationYeison Spencer MD Work Phone: [facility] Work Phone: [phone]bpuvzqhz virus vaccine, unspecified formulationYeison Spencer MD Work Phone: FTT [facility]IONAL HOSPITALReal Time Content OZAEXY34-10-5334eincifxhh, injectable, quadrivalent, preservative freeYeison Spencer MD Work Phone: [facility] Payers DatePayer CategoryPayerPolicy [id number] Health InsuranceFRONTPATH [id number] FRONTPATH [id number] 2023-Present [phone] [id number]-oev82-25-9492 [id number] 2.16.840.1.672605.3.57[id number] 2.16.840.1.361557.3.57[id number] 2.16.840.1.301495.3.57[id number] 2.16.840.1.462338.3.57[id number] 2.16.840.1.359610.3.57[id number] 2.16.840.1.946941.3.57[id number] 2.16.840.1.985257.3.579.[id number] 1.2.840.573797.1.13.23[id number] 2.16.840.1.006954.3.579.2.074Ymgzukb2479V79748YPRVADOU 33goo20x-5312-17y8-[id number]-s38b75e5l06k Social History DateTypeDetailFacilityStart: 03-19-2019 End: 93-28-7003Resytnq smoking status NHISFormer smokerProtestant HospitalVermont Transco Phone: start: 10-23-1996 End: 62-45-4474Irbnvgg of tobacco useCurrent smokerProtestant HospitalGlampingHub.comStart: 03-19-2019 End: 38-68-2809Isfjmalvib smoked current (pack per day) - ReportedOtoharmonics Corporation Phone: start: 03-19-2019 End: 93-96-5715Oqnxhar use and exposureNever usedProtestant HospitalGlampingHub.comStart: 03-19-2019 End: 88-60-2254Qnmkdra intakeCurrent drinker of alcohol (finding)[employer] Work Phone: start: 03-31-2021 End: 64-09-6071Jjhblzi SDOH Tdqjqqepa5Ckzhl [employer] Work Phone: start: 03-31-2021 End: 35-65-3129Epmejfv SDOH Food Gaeye4Ofxfc [employer] Work Phone: start: 48-85-1990Fphaupd CommentsociallySouthern Ohio Medical Center [employer] Work Phone: start: 83-98-5623Pzp Assigned At [facility] UnionNot on [facility] VA Medical CenterGlampingHub.com Work Phone: start: 10-23-1996 End: 41-96-4978Gowqnuo of tobacco useCigarette SmokerBON [employer] Work Phone: start: 24-61-1080Nwtjwwk SDOH Transport Non-Dpb5IFR [facility] HOSPITALTrinity Place Holdings Work Phone: start: 16-06-8884Kps Assigned At [facility] Community Hospitaltart: 02-08-2024 End: 19-24-7853Aax Assigned At [facility] [employer] Other Start: 49-64-7297Thc hard is it for you to pay for the very basics like food, housing, medical care, and heatingNot hard at allBON [employer] Technologies(I/We) worried whether (my/our) food would run out before (I/we) got money to buy more.Never trueBON Predictive TechnologiesAt any time in the past 12 months, were you homeless or living in skilled nursing [including now]?NoBON Predictive TechnologiesTobacco smoking status NHISTobacco smoking consumption unknownNOMS HealthcareStart: 73-00-4967KprHbcelh (finding)[facility] [employer] Procedure CodeEquipment CodeEquipment Original TextEquipment IdentifierDates ProcedureImplant ([id number]) Clinical Notes 01-04-2023 to 07-22-2025 Note Date & XbeqQvmzImpzumwz51-35-6858 History of Present illness Narrative* Maryan Dave NP - 07/22/2025 3:00 PM EDT Reason for Appointment: Patient ID: Susan Blackwell is a 44 y.o. female who presents for Well Women Visit Patient presents today for Annual Exam. MEDICATIONS Current Outpatient Medications Medication Instructions amitriptyline (ELAVIL) 25 mg, Nightly cholecalciferol (Vitamin D-3) 25 MCG (1000 UT) tablet 1 tablet, Daily fluticasone (Flonase) 50 MCG/ACT nasal spray 1 spray, Daily levothyroxine (SYNTHROID, LEVOXYL) 75 mcg, Oral, Daily before breakfast Multiple Vitamin (Multi Vitamin) tablet Every 24 hours venlafaxine (EFFEXOR) 75 mg, Daily ALLERGIES No Known Allergies PROBLEMS Active Ambulatory Problems Diagnosis Date Noted No Active Ambulatory Problems Resolved Ambulatory Problems Diagnosis Date Noted No Resolved Ambulatory Problems Past Medical History: Diagnosis Date Anxiety Autoimmune thyroiditis Depression Hypothyroidism Migraine Nontoxic goiter Vitamin D deficiency HISTORY PAST MEDICAL HISTORY SOCIAL HISTORY Past Medical History: Diagnosis Date Anxiety Autoimmune thyroiditis Depression Hypothyroidism Migraine Nontoxic goiter Vitamin D deficiency Social History Tobacco Use Smoking status: Not on file Smokeless tobacco: Not on file Substance Use Topics Alcohol use: Not on file Drug use: Not on file FAMILY HISTORY Family History Problem Relation Name Age of Onset Diabetes Mother Arthritis Mother Migraines Mother Hyperlipidemia Father Heart disease Father Hypothyroidism Father SURGICAL HISTORY Past Surgical History: Procedure Laterality Date SECTION, LOW TRANSVERSE SECTION, LOW TRANSVERSE REVIEW OF SYSTEMS Review of Systems: Review of Systems Constitutional: Negative. HENT: Negative. Eyes: Negative. Respiratory: Negative. Cardiovascular: Negative. Gastrointestinal: Negative. Genitourinary: Negative. Musculoskeletal: Negative. Skin: Negative. Neurological: Negative. All other systems reviewed and are negative. Hematological: Negative. Endocrine: Negative. Allergic/Immunologic: Negative. OBJECTIVE Objective: Physical Exam Constitutional: Appearance: Normal appearance. She is well-developed. Genitourinary: Vulva normal. Breasts: Breasts are soft. Right: Normal. Left: Normal. Cardiovascular: Rate and Rhythm: Normal rate and regular rhythm. Pulmonary: Effort: Pulmonary effort is normal. Breath sounds: Normal breath sounds. Abdominal: General: Bowel sounds are normal. There is no distension. Palpations: Abdomen is soft. Tenderness: There is no abdominal tenderness. There is no guarding or rebound. Musculoskeletal: General: No swelling. Normal range of motion. Right lower leg: No edema. Left lower leg: No edema. Neurological: Mental Status: She is alert and oriented to person, place, and time. Skin: General: Skin is warm and dry. Psychiatric: Mood and Affect: Mood normal. Behavior: Behavior normal. Vitals and nursing note reviewed. Exam conducted with a bacon de rinder present. Vitals: Estimated body mass index is 31.41 kg/m as calculated from the following: Height as of 03/31/25: 5' 4 . Weight as of this encounter: 183 lb. BP: 130/76 Patient's last menstrual period was 07/10/2025. ASSESSMENT & PLAN ICD-10-CM 1. Well woman exam with routine gynecological exam Z01.419 THIN PREP TIS PAP AND HR HPV DNA 2. Breast cancer screening by mammogram Z12.31 Bilateral screening mammogram Bilateral screening mammogram Annual: Patient presents today for an annual exam. Patient states she is doing well and has no complaints. Pap was obtained without difficulty and patient given mammogram order to have scheduled/obtained. Orders Placed This Encounter Procedures Bilateral screening mammogram Follow Up: Patient is to return in one year for annual unless needed otherwise. Documented by Alejandra Zamorano MA on behalf of: Maryan Dave NP documented in this encounterWright Memorial [id number] History of Present illness Narrative* Eliu Vega MD - 03/31/2025 1:10 PM EDT Susan Blackwell is a 44 y.o. female No ref. provider found presents with chief complaint of Thyroid Problem and Follow-up (LAB) HPI: 03/2025 History of Present Illness The patient is a 44-year-old female who presents for a follow-up on her thyroid condition. She was last seen in 03/2024. She reports no significant changes in her overall health status. She is currently on a regimen of 75 mcg of medication, which has remained consistent without any alterations. Supplemental Information She is also taking amitriptyline, venlafaxine, vitamin D, and vitamin C. Results Laboratory Studies TSH 4.93. Free T4 1.1 (0.92-1.68). Free T3 2.46 (2.4-4.4). IM : 03/2024 follow up visit on 04/02/2024 TSH 3.95, free T4 1.1 (0.92-1.64), free T3 2.5 (2- 4.4), on 75 mcg daily. IM : 09/2023 follow up visit on 10/03/2023 TSH 4.24, free T4 0.78 (0.74-1.46), free T3 2.10 (2.18-3.98), on 50 mcg 5 days a week and 75 2 days a week. HPI: 03/2023 New patient sent from [facility] for Arcelia disease and goiter. Lab done in November/2022: TSH 21, free T4 0.73, free T3 2.38, and started 50 mcg daily. In lab in December 2022: TSH back to normaland 4.21, and free T4 0.98. Ultrasound done: Shows right lobe 6 x 3 x 2 cm, left lobe 4.4 x 1.5 x 1.6 cm, increased enlargement of the right lobe and vascularity, they concerned about that, but no nodules, no need for any biopsy. SUBJECTIVE: MEDICATIONS: Current Outpatient Medications Medication Instructions amitriptyline (ELAVIL) 25 mg, Nightly cholecalciferol (Vitamin D-3) 25 MCG (1000 UT) tablet 1 tablet, Daily fluticasone (Flonase) 50 MCG/ACT nasal spray 1 spray, Daily levothyroxine (Synthroid, Levoxyl) 75 MCG tablet TAKE 1 TABLET BY MOUTH EVERY DAY IN THE MORNING ONEMPTY STOMACH Multiple Vitamin (Multi Vitamin) tablet Every 24 hours venlafaxine (EFFEXOR) 75 mg, Daily ALLERGIES: No Known Allergies Past Medical History: Diagnosis Date Anxiety Autoimmune thyroiditis (CMS/HCC) Depression (CMS/HCC) Hypothyroidism (CMS/HCC) Migraine (CMS/HCC) Nontoxic goiter (CMS/HCC) Vitamin D deficiency Past Surgical History: Procedure Laterality Date SECTION, LOW TRANSVERSE SECTION, LOW TRANSVERSE REVIEW OF SYMPTOMS: 14 POINT OF SYSTEM REVIEWED AND NEGATIVE OBJECTIVE: Visit Vitals BP 108/68 Pulse 103 Resp 20 Ht 5' 4 Wt 185 lb SpO2 96% BMI 31.76 kg/m BSA 1.95 m Physical Exam Constitutional: Appearance: Normal appearance. She is normal weight. HENT: Head: Normocephalic and atraumatic. Right Ear: External ear normal. Nose: Nose normal. Mouth/Throat: Pharynx: Oropharynx is clear. Eyes: Extraocular Movements: Extraocular movements intact. Pupils: Pupils are equal, round, and reactive to light. Cardiovascular: Rate and Rhythm: Normal rate and regular rhythm. Pulmonary: Effort: Pulmonary effort is normal. Abdominal: General: Abdomen is flat. Palpations: Abdomen is soft. Musculoskeletal: General: Normal range of motion. Skin: General: Skin is warm. Neurological: General: No focal deficit present. Mental Status: She is alert. Psychiatric: Mood and Affect: Mood normal. Behavior: Behavior normal. ASSESSMENT AND PLAN: Assessment/Plan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
--- NOTE | 2025-08-28 16:35 | MM_ITS ---
Patient Name: GIULIA ARRIOLA MR#: [id number] : 1980 Exam Date: 08/28/2025 Ordering Doctor: MARYAN BOWEN CNP RADIOLOGY REPORT PROCEDURE: MM TOMOSYNTHESIS SCREENING BI COMPARISON: MM TOMOSYNTHESIS SCREENING BI, 05/20/2024. MG MAMM SCREEN 3D LEIF CAD, 06/23/2022. MG MAMM SCREEN 3D LEIF CAD, 06/24/2021. INDICATIONS: Screening Calculator Name NCI Breast Cancer Risk Assessment Tool 5 Year Breast Cancer Risk 1.00% Lifetime Breast Cancer Risk 11.90% Personal Breast Cancer No Personal Ovarian Cancer No Treatments None Family Cancers None LOCATION: [facility] BREAST COMPOSITION: The breasts are extremely dense, which lowers the sensitivity of mammography. FINDINGS: RIGHT BREAST: No significant suspicious finding. Similar focal asymmetries are noted. Benign-appearing lymph nodes are noted along the chest wall. LEFT BREAST: No significant suspicious finding. Similar focal asymmetries are noted. DIAGNOSTIC CATEGORY 2--BENIGN FINDING. NO CHANGE FROM COMPARISON. RECOMMENDATIONS: ROUTINE MAMMOGRAM AND CLINICAL EVALUATION IN 12 MONTHS. Dictated by: Primo Gregory MD on 08/28/2025 at 17:30 Approved by: Primo Gregory MD on 08/28/2025 at 17:32
== END 2025-08-28 16:17 | disposition home or self-care (01) ==
LOC: MAMMO 16:16
PROVIDERS: PCP Nurse Practitioner Women's Health; Visit Provider Nurse Practitioner Family
DX: Z12.31 Encounter for screening mammogram for malignant neoplasm of breast (principal)
CPT/HCPCS: 77063; 77067